=== PATIENT | female | born 1940 | race Hispanic/Latino ===

== ENCOUNTER 2018-01-31 05:24 | Emergency (ER) | payer MEDICARE ==
[2018-01-31 06:39] LABS: Basophils % (Auto) 0.6 % (0.0-1.8); Eosinophils % (Auto) 0.6 % (0.0-4.3); Hematocrit 37.5 % (30.3-42.9); Hemoglobin 12.5 gm/dl (10.1-14.3); Lymphocytes # (Auto) 0.4 K/mm3 (1.2-5.4); Lymphocytes % (Auto) 6.9 % (13.4-35.0); Mean Corpuscular HGB Conc 33 % (30-34); Mean Corpuscular Hemoglobin 30 pg (28-32); Mean Corpuscular Volume 90 fl (79-97); Monocytes # (Auto) 0.3 K/mm3 (0.0-0.8); Monocytes % (Auto) 5.5 % (0.0-7.3); Platelet Count 130 K/mm3 (140-440); Red Blood Count 4.18 M/mm3 (3.65-5.03); Red Cell Distribution Width 16.3 % (13.2-15.2)
[2018-01-31] MEDS ORDERED: ZOFRAN IV ONE (07:30)
[2018-01-31] MEDS ORDERED: SUBLIMAZE IV ONE (07:30)
[2018-01-31] MEDS ORDERED: FIORICET PO ONE (07:31)
--- NOTE | 2018-01-31 07:44 | Emergency Department Report ---
HPI - General Chief Complaint: Headache Time Seen by Provider: 01/31/18 07:17 - HPI HPI: Room 2 The patient is 77-year-old female presents with chief complaint of headache. Patient states she's had a frontal headache since yesterday. Patient denies preceding trauma. Patient denies fever. Patient missed nausea and vomiting. The patient states she had a history of migraines in the past but they resolved after menopause. Patient gives her pain score of 9/10 Location: Head Duration: Constant since yesterday Quality: Aching Severity: 9/10 Modifying factors: [see above] Context: [see above] Mode of transportation: [not driving] ED Past Medical Hx - Past Medical History Previous Medical History?: Yes Hx Hypertension: Yes (FOR 5 YRS, DR. BELLO- PCP, DR. 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 BREAST CYSTS IN THE 60'S) - Family History Family history: no significant - Social History Smoking Status: Never Smoker Substance Use Type: None (denies illicit drug use) - Medications Home Medications: Home Medications Medication Instructions Recorded Confirmed Last Taken Type Duloxetine HCl [Cymbalta] 30 mg PO BID 11/14/15 01/31/18 11/21/15 History Levothyroxine [Synthroid] 100 mcg PO QAM 11/14/15 01/31/18 11/22/15 03:00 History Lisinopril [Zestril TAB] 40 mg PO BID 11/14/15 01/31/18 11/22/15 03:00 History Ondansetron [Zofran TAB] 4 mg PO Q8HR PRN #14 tablet 11/22/15 01/31/18 Unknown Rx Butalb/Acetamin/Caff 50-325-40 2 tab PO Q8HR PRN #20 tablet 01/31/18 Unknown Rx [Fioricet] Carvedilol [Coreg] 3.125 mg PO BID 01/31/18 01/31/18 Unknown History Donepezil HCl 5 mg PO DAILY 01/31/18 01/31/18 Unknown History Furosemide [Lasix] 20 mg PO QDAY 01/31/18 01/31/18 Unknown History ISOSORBIDE MONOnitrate [Imdur ER] 60 mg PO QDAY 01/31/18 01/31/18 Unknown History Mirtazapine [Remeron] 30 mg PO QHS 01/31/18 01/31/18 Unknown History Niraparib Tosylate [Zejula] 100 mg PO DAILY 01/31/18 01/31/18 Unknown History Ondansetron [Zofran ODT TAB] 8 mg PO Q8HR #20 tab.rapdis 01/31/18 Unknown Rx Potassium Chloride [Klor-Con 10] 10 meq PO DAILY 01/31/18 01/31/18 Unknown History ED Review of Systems ROS: Stated complaint: GENERAL ILLNESS/WEAKNESS Other details as noted in HPI Constitutional: denies: fever Eyes: denies: eye pain ENT: denies: throat pain Cardiovascular: denies: chest pain Gastrointestinal: nausea, vomiting. denies: abdominal pain Genitourinary: denies: dysuria Musculoskeletal: denies: back pain Neurological: headache Physical Exam - Physical Exam Vital Signs: Vital Signs 01/31/18 01/31/18 05:51 06:20 Temperature 97.0 F L Pulse Rate 88 Respiratory 16 20 Rate Blood Pressure 189/75 O2 Sat by Pulse 96 97 Oximetry Vital Signs 01/31/18 01/31/18 01/31/18 05:35 05:46 05:51 Temperature 97.0 F L Pulse Rate 83 83 88 Respiratory 22 20 16 Rate Blood Pressure 152/128 189/75 Blood Pressure [Left] O2 Sat by Pulse 94 96 Oximetry 01/31/18 01/31/18 01/31/18 06:00 06:16 06:20 Temperature Pulse Rate 85 86 Respiratory 19 18 20 Rate Blood Pressure 206/87 189/75 Blood Pressure [Left] O2 Sat by Pulse 95 93 97 Oximetry 01/31/18 01/31/18 01/31/18 06:30 06:46 07:00 Temperature Pulse Rate 82 85 85 Respiratory 17 19 20 Rate Blood Pressure 191/99 191/99 204/78 Blood Pressure [Left] O2 Sat by Pulse 94 95 95 Oximetry 01/31/18 01/31/18 01/31/18 07:16 07:30 07:48 Temperature Pulse Rate 94 H 85 75 Respiratory 24 13 18 Rate Blood Pressure 191/99 191/99 Blood Pressure 198/78 [Left] O2 Sat by Pulse 98 97 100 Oximetry 01/31/18 01/31/18 01/31/18 07:54 08:00 08:16 Temperature Pulse Rate 86 89 85 Respiratory Rate Blood Pressure 198/78 198/78 210/78 Blood Pressure [Left] O2 Sat by Pulse 94 96 Oximetry 01/31/18 01/31/18 09:00 10:01 Temperature Pulse Rate 86 Respiratory Rate Blood Pressure 198/78 163/82 Blood Pressure [Left] O2 Sat by Pulse 97 98 Oximetry Physical Exam: GENERAL: The patient is well-developed well-nourished female lying on stretcher not appearing to be in acute distress. Lights are off in the room HEENT: Normocephalic. Atraumatic. Extraocular motions are intact. Patient has moist mucous membranes. NECK: Supple. No meningitic signs are noted. Trachea midline CHEST/LUNGS: Clear to auscultation. There is no respiratory distress noted. HEART/CARDIOVASCULAR: Regular. There is no tachycardia. There is no gallop rub or murmur. ABDOMEN: Abdomen is soft, nontender. Patient has normal bowel sounds. There is no abdominal distention. SKIN: There is no rash. There is no edema. There is no diaphoresis. NEURO: The patient is awake, alert, and oriented. The patient is cooperative. Cranial nerves II through XII grossly intact, no drift. The patient has residual decrease sensation to the right upper extremity from previous CVA. There is no change. The patient has normal speech MUSCULOSKELETAL: There is no evidence of acute injury. NIHSS= 0 LOC a. Alert= 0 Not alert but arousable to minor stimuli=1 Not alert requires repeated or strong stimuli to move= 2 Responds only reflex motor or unresponsive=3 b. asks month and age answers both correctly= 0 answers one correctly= 1 answers neither correctly= 2 Best Gaze normal= 0 abnormal in one or both but forced deviation or total paresis absent= 1 forced deviation or total gaze paresis= 2 Visual no visual loss= 0 partial hemianopia= 1 complete hemianopia= 2 bilateral hemianopia= 3 Facial Palsy normal= 0 minor paralysis= 1 partial paralysis= 2 complete paralysis= 3 Motor Arm no drift= 0 drift before 10 secs but doesnt hit bed= 1 some effort against gravity= 2 no effort against gravity= 3 no movement= 4 Motor leg no drift= 0 drift before 5 secs but doesnt hit bed= 1 drifts to bed before 5 secs= 2 no effort against gravity= 3 no movement= 4 Limb ataxia absent=0 present in one limb= 1 present in two limbs= 2 Sensory normal= 0 mild sensory loss= 1 severe (unaware of being touched)= 2 Best language mild/some loss of fluency= 1 severe= 2 mute= 3 Dysarthria normal= 0 slurs some words= 1 severe/unintelligible= 2 Extinction and Inattention no abnormality= 0 visual, tactile, auditory or personal inattention= 1 profound (doesnt recognize own hand or orients to only one side= 2 ED Course Vital Signs 01/31/18 01/31/18 05:51 06:20 Temperature 97.0 F L Pulse Rate 88 Respiratory 16 20 Rate Blood Pressure 189/75 O2 Sat by Pulse 96 97 Oximetry - Reevaluation(s) Reevaluation #1: 01/31/18 10:07 Patient states she feels much improved ED Medical Decision Making - Lab Data Result diagrams: 01/31/18 06:24 01/31/18 06:24 Laboratory Tests 01/31/18 01/31/18 06:24 06:24 WBC 5.7 RBC 4.18 Hgb 12.5 Hct 37.5 MCV 90 MCH 30 MCHC 33 RDW 16.3 H Plt Count 130 L Lymph % (Auto) 6.9 L [place] % (Auto) 5.5 Eos % (Auto) 0.6 Baso % (Auto) 0.6 Lymph # 0.4 L [place] # 0.3 Eos # 0.0 Baso # 0.0 Seg Neutrophils % 86.4 H Seg Neutrophils # 4.9 Sodium 141 Potassium 4.3 Chloride 97.8 L Carbon Dioxide 30 Anion Gap 18 BUN 40 H Creatinine 1.1 Estimated GFR 48 BUN/Creatinine Ratio 36 Glucose 134 H Calcium 9.7 Total Bilirubin 0.50 AST 31 ALT 18 Alkaline Phosphatase 139 H Total Protein 7.1 Albumin 4.0 Albumin/Globulin Ratio 1.3 Lipase 26 - Radiology Data CT head (read by radiologist)- Volume loss. No acute process identified - Differential Diagnosis headache, migraine, hypertensive urgency Critical care attestation.: If time is entered above; I have spent that time in minutes in the direct care of this critically ill patient, excluding procedure time. ED Disposition Clinical Impression: Headache, Hypertension Disposition: DC- TO HOME OR SELFCARE Is pt being admited?: No Does the pt Need Aspirin: No Condition: Stable Instructions: Hypertension (ED) Additional Instructions: Return to the emergency department immediately should you develop worsening symptoms, fever, inability to tolerate food or liquid or any other concerns. Prescriptions: Butalb/Acetamin/Caff 50-325-40 [Fioricet] 2 tab PO Q8HR PRN #20 tablet PRN Reason: Headache Ondansetron [Zofran ODT TAB] 8 mg PO Q8HR #20 tab.rapdis Referrals: DENEEN ZARATE MD [Staff Physician] - 2-3 Days (Dr Zarate is a neurologist. Please follow up with him for further evaluation) Time of Disposition: 10:31
[2018-01-31 07:58] LABS: Calcium 9.7 mg/dL (8.4-10.2)
--- NOTE | 2018-01-31 08:07 | Cat Scan Report ---
CT HEAD WITHOUT CONTRAST: HISTORY: Headache, nausea, vomiting. TECHNIQUE: Sequential 2.5mm CT images. COMPARISON: 06/23/11. FINDINGS: Cerebral Parenchyma: Mild diffuse volume loss appears age appropriate. A moderate to large size area of decreased attenuation has developed in the subcortical white matter of the left posterior frontal lobe. This area measures up to 5 cm in greatest diameter. This is new since the previous exam in 2010 but it has the appearance of a chronic ischemic insult. There is no obvious underlying mass, surrounding edema or sulcal effacement. The remaining brain parenchyma is within normal limits. Cerebellum: Within normal limits. Brainstem: Within normal limits. Ventricles: Normal. Sella: Normal. Extra-axial spaces: Normal. Basal Cisterns: Normal. Intracranial Hemorrhage: None. Midline Shift: None. Calvarium: Normal. Sinuses: Normal. Mastoid Air Cells: Normal. Visualized Orbits: Normal. IMPRESSION: Volume loss. Moderate sized chronic ischemic insult is identified in the posterior left frontal lobe which is new since the 2011 exam. No acute process is appreciated on noncontrast CT. If further evaluation is needed, MRI with contrast is recommended.
[2018-01-31] MEDS ORDERED: REGLAN IV ONE (08:18)
[2018-01-31] MEDS ORDERED: CATAPRES PO ONE (10:03)
[2018-01-31 10:08] VITALS: BP 163/82
[2018-01-31 10:14] LABS: Bilirubin,Urine NEG (Negative); Blood,Urine SM (Negative); Color,Urine Yellow (Yellow); Urobilinogen,Urine < 2.0 mg/dL (<2.0)
[2018-01-31 10:15] LABS: WBC,Urine > 182.0 /HPF (0.0-6.0)
== END 2018-01-31 11:38 | disposition home or self-care (01) ==
LOC: ED 05:24
DX: I10 Essential (primary) hypertension (principal)
CPT/HCPCS: 36415; 70450; 80053; 81001; 83690; 85025; 96374; 96375; 99284; J2405; J2765; J3010

== ENCOUNTER 2018-02-10 14:55 | Emergency (ER) | payer MEDICARE ==
[2018-02-10] MEDS ORDERED: NACL 0.9% 500 ML 500 ML IV ONE (15:40)
--- NOTE | 2018-02-10 15:41 | Emergency Department Report ---
ED General Adult HPI - General Chief complaint: Dizziness Stated complaint: DIZZY Time Seen by Provider: 02/10/18 15:24 Source: patient, EMS (ems notes not available at time of chart dictation), RN notes reviewed, old records reviewed Mode of arrival: Stretcher Limitations: Physical Limitation - History of Present Illness Initial comments: This is a 77-year-old female, history of frequent falls, disequilibrium, A. fib , not on anticoagulation, dementia. Patient presents to the ER for evaluation after fall. She reports chronic dizziness which she describes as a sensation of room spinning. She denies tinnitus and change in auditory acuity. Patient denies headache, neck pain, chest pain, abdominal pain, shortness of breath, urinary symptoms. Her dizziness/vertiginous symptoms do not have exacerbating or relieving factors. She is not having any pain at this time. Of note, patient recently admitted to the hospital for similar symptoms, had a CAT scan of the brain which was negative for acute findings, was seen and evaluated by cardiology, she is documented to not be on systemic long-term anticoagulation secondary to frequent falls and chronic disequilibrium. -: Gradual Severity scale (0 -10): 0 Consistency: intermittent Improves with: none Worsens with: none Associated Symptoms: denies: confusion, chest pain, cough, diaphoresis, fever/ chills, headaches, loss of appetite, malaise, nausea/vomiting, rash, seizure, shortness of breath, syncope, weakness - Related Data Home Medications Medication Instructions Recorded Confirmed Last Taken Duloxetine HCl [Cymbalta] 30 mg PO BID 11/14/15 02/10/18 11/21/15 Levothyroxine [Synthroid] 100 mcg PO QAM 11/14/15 02/10/18 11/22/15 03:00 Lisinopril [Zestril TAB] 40 mg PO BID 11/14/15 02/10/18 11/22/15 03:00 Carvedilol [Coreg] 3.125 mg PO BID 01/31/18 02/10/18 Unknown Donepezil HCl 5 mg PO DAILY 01/31/18 02/10/18 Unknown ISOSORBIDE MONOnitrate [Imdur ER] 60 mg PO QDAY 01/31/18 02/10/18 Unknown Mirtazapine [Remeron] 30 mg PO QHS 01/31/18 02/10/18 Unknown Niraparib Tosylate [Zejula] 100 mg PO DAILY 01/31/18 02/10/18 Unknown Previous Rx's Medication Instructions Recorded Last Taken Type Ondansetron [Zofran ODT TAB] 8 mg PO Q8HR #20 tab.rapdis 01/31/18 Unknown Rx Furosemide [Lasix TAB] 20 mg PO Q48H PRN #15 tablet 02/06/18 Unknown Rx Potassium Chloride [Klor-Con 10] 10 meq PO DAILY #30 02/06/18 Unknown Rx Meclizine [Antivert] 25 mg PO TID PRN #20 tablet 02/10/18 Unknown Rx Allergies Allergy/AdvReac Type Severity Reaction Status Date / Time amoxicillin [Amoxicillin] Allergy Rash Verified 11/22/15 06:47 Penicillins Allergy Rash Verified 11/22/15 06:47 Sulfa (Sulfonamide Allergy Rash Verified 11/22/15 06:35 Antibiotics) ED Review of Systems ROS: Stated complaint: DIZZY Other details as noted in HPI Constitutional: denies: fever, malaise Eyes: denies: vision change ENT: denies: ear pain, epistaxis, congestion Respiratory: denies: cough Cardiovascular: denies: chest pain, syncope Gastrointestinal: denies: abdominal pain Genitourinary: denies: dysuria Musculoskeletal: arthralgia Neurological: weakness ED Past Medical Hx - Past Medical History Hx Hypertension: Yes (FOR 5 YRS, DR. BELLO- PCP, DR. 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 BREAST CYSTS IN THE 60'S) Additional Surgical History: Hysterectomy - Social History Smoking Status: Never Smoker - Medications Home Medications: Home Medications Medication Instructions Recorded Confirmed Last Taken Type Duloxetine HCl [Cymbalta] 30 mg PO BID 11/14/15 02/10/18 11/21/15 History Levothyroxine [Synthroid] 100 mcg PO QAM 11/14/15 02/10/18 11/22/15 03:00 History Lisinopril [Zestril TAB] 40 mg PO BID 11/14/15 02/10/18 11/22/15 03:00 History Carvedilol [Coreg] 3.125 mg PO BID 01/31/18 02/10/18 Unknown History Donepezil HCl 5 mg PO DAILY 01/31/18 02/10/18 Unknown History ISOSORBIDE MONOnitrate [Imdur ER] 60 mg PO QDAY 01/31/18 02/10/18 Unknown History Mirtazapine [Remeron] 30 mg PO QHS 01/31/18 02/10/18 Unknown History Niraparib Tosylate [Zejula] 100 mg PO DAILY 01/31/18 02/10/18 Unknown History Ondansetron [Zofran ODT TAB] 8 mg PO Q8HR #20 tab.rapdis 01/31/18 02/10/18 Unknown Rx Furosemide [Lasix TAB] 20 mg PO Q48H PRN #15 tablet 02/06/18 02/10/18 Unknown Rx Potassium Chloride [Klor-Con 10] 10 meq PO DAILY #30 02/06/18 02/10/18 Unknown Rx Meclizine [Antivert] 25 mg PO TID PRN #20 tablet 02/10/18 Unknown Rx ED Physical Exam - General Limitations: Physical Limitation General appearance: alert, in no apparent distress - Head Head exam: Present: atraumatic, normocephalic - Eye Eye exam: Present: normal appearance, EOMI, other (physical acuity intact to finger counting, color perception bilaterally. Pupils are status post bilateral cataract surgery). Absent: nystagmus - ENT ENT exam: Present: normal exam, normal orophraynx, mucous membranes moist, TM's normal bilaterally, normal external ear exam, other (there is no mastoid tenderness) - Neck Neck exam: Present: normal inspection, full ROM - Respiratory Respiratory exam: Present: normal lung sounds bilaterally. Absent: respiratory distress - Cardiovascular Cardiovascular Exam: Present: irregular rhythm, normal heart sounds. Absent: bradycardia, tachycardia, systolic murmur, diastolic murmur, rubs, gallop - GI/Abdominal GI/Abdominal exam: Present: soft, normal bowel sounds. Absent: distended, tenderness, guarding, rebound, rigid, pulsatile mass - Extremities Exam Extremities exam: Present: normal inspection, full ROM, other (there is no palpable cord. There is a negative Homans sign. 2+ pulses noted in the upper, lower extremities. Chronic discoloration noted in the bilateral lower extremities. Left lower extremity range of motion limited secondary to prior stroke. Otherwise, full range of motion bilateral upper and right lower extremities.). Absent: pedal edema, calf tenderness - Back Exam Back exam: Present: normal inspection, full ROM. Absent: paraspinal tenderness , vertebral tenderness - Neurological Exam Neurological exam: Present: alert (there is no past pointing. Normal heel-to- hinton in the right lower extremity. Negative pronator drift.), oriented X3, CN II-XII intact, motor sensory deficit (4-5 strength left lower extremity. Decreased sensation to light touch left lower extremity.) - Psychiatric Psychiatric exam: Present: normal affect, normal mood - Skin Skin exam: Present: warm, dry, intact, normal color. Absent: rash ED Course Vital Signs 02/10/18 02/10/18 02/10/18 15:31 15:40 15:45 Temperature 97.6 F Pulse Rate 77 73 Respiratory 11 L 16 20 Rate Blood Pressure 138/63 Blood Pressure 138/63 [Left] O2 Sat by Pulse 100 Oximetry 02/10/18 02/10/18 02/10/18 16:00 16:17 18:30 Temperature Pulse Rate 84 70 Respiratory 24 18 13 Rate Blood Pressure 146/61 Blood Pressure 146/61 154/51 [Left] O2 Sat by Pulse 98 100 99 Oximetry ED Medical Decision Making - Lab Data Result diagrams: 02/10/18 15:57 02/10/18 15:57 Vital Signs 02/10/18 02/10/18 02/10/18 15:31 15:40 15:45 Temperature 97.6 F Pulse Rate 77 73 Respiratory 11 L 16 20 Rate Blood Pressure 138/63 Blood Pressure 138/63 [Left] O2 Sat by Pulse 100 Oximetry 02/10/18 02/10/18 02/10/18 16:00 16:17 18:30 Temperature Pulse Rate 84 70 Respiratory 24 18 13 Rate Blood Pressure 146/61 Blood Pressure 146/61 154/51 [Left] O2 Sat by Pulse 98 100 99 Oximetry Lab Results 02/10/18 02/10/18 02/10/18 Range/Units 15:57 15:57 15:57 WBC 5.2 (4.5-11.0) K/mm3 RBC 3.75 (3.65-5.03) M/mm3 Hgb 11.1 (10.1-14.3) gm/dl Hct 33.3 (30.3-42.9) % MCV 89 (79-97) fl MCH 30 (28-32) pg MCHC 33 (30-34) % RDW 17.3 H (13.2-15.2) % Plt Count 180 (140-440) K/mm3 Lymph % (Auto) 9.0 L (13.4-35.0) % Aurora % (Auto) 8.2 H (0.0-7.3) % Eos % (Auto) 2.7 (0.0-4.3) % Baso % (Auto) 1.0 (0.0-1.8) % Lymph # 0.5 L (1.2-5.4) K/mm3 Aurora # 0.4 (0.0-0.8) K/mm3 Eos # 0.1 (0.0-0.4) K/mm3 Baso # 0.1 (0.0-0.1) K/mm3 Seg Neutrophils % 79.1 H (40.0-70.0) % Seg Neutrophils # 4.1 (1.8-7.7) K/mm3 PT 12.9 (12.2-14.9) Sec. INR 0.93 (0.87-1.13) APTT 28.8 (24.2-36.6) Sec. Thrombin Time 16.4 (15.1-19.6) Sec. Sodium (137-145) mmol/L Potassium (3.6-5.0) mmol/L Chloride (98-107) mmol/L Carbon Dioxide (22-30) mmol/L Anion Gap mmol/L BUN (7-17) mg/dL Creatinine (0.7-1.2) mg/dL Estimated GFR ml/min BUN/Creatinine Ratio % Glucose (65-100) mg/dL Calcium (8.4-10.2) mg/dL Total Bilirubin (0.1-1.2) mg/dL AST (5-40) units/L ALT (7-56) units/L Alkaline Phosphatase (35-129) units/L Total Creatine Kinase (30-135) units/L CK-MB (CK-2) (0.0-4.0) ng/mL CK-MB (CK-2) Rel Index (0-4) Troponin T (0.00-0.029) ng/mL Total Protein (6.3-8.2) g/dL Albumin (3.9-5) g/dL Albumin/Globulin Ratio % Urine Color Yellow (Yellow) Urine Turbidity Clear (Clear) Urine pH 6.0 (5.0-7.0) Ur Specific [place] 1.015 (1.003-1.030) Urine Protein <15 mg/dl (Negative) mg/dL Urine Glucose (UA) Neg (Negative) mg/dL Urine Ketones Neg (Negative) mg/dL Urine Blood Neg (Negative) Urine Nitrite Neg (Negative) Urine Bilirubin Neg (Negative) Urine Urobilinogen < 2.0 (<2.0) mg/dL Ur Leukocyte Esterase Neg (Negative) Urine WBC (Auto) 1.0 (0.0-6.0) /HPF Urine RBC (Auto) 3.0 (0.0-6.0) /HPF U Epithel Cells (Auto) < 1.0 (0-13.0) /HPF 02/10/18 Range/Units 15:57 WBC (4.5-11.0) K/mm3 RBC (3.65-5.03) M/mm3 Hgb (10.1-14.3) gm/dl Hct (30.3-42.9) % MCV (79-97) fl MCH (28-32) pg MCHC (30-34) % RDW (13.2-15.2) % Plt Count (140-440) K/mm3 Lymph % (Auto) (13.4-35.0) % Aurora % (Auto) (0.0-7.3) % Eos % (Auto) (0.0-4.3) % Baso % (Auto) (0.0-1.8) % Lymph # (1.2-5.4) K/mm3 Aurora # (0.0-0.8) K/mm3 Eos # (0.0-0.4) K/mm3 Baso # (0.0-0.1) K/mm3 Seg Neutrophils % (40.0-70.0) % Seg Neutrophils # (1.8-7.7) K/mm3 PT (12.2-14.9) Sec. INR (0.87-1.13) APTT (24.2-36.6) Sec. Thrombin Time (15.1-19.6) Sec. Sodium 138 (137-145) mmol/L Potassium 4.8 (3.6-5.0) mmol/L Chloride 97.3 L (98-107) mmol/L Carbon Dioxide 30 (22-30) mmol/L Anion Gap 16 mmol/L BUN 44 H (7-17) mg/dL Creatinine 1.0 (0.7-1.2) mg/dL Estimated GFR 54 ml/min BUN/Creatinine Ratio 44 % Glucose 119 H (65-100) mg/dL Calcium 9.6 (8.4-10.2) mg/dL Total Bilirubin 0.40 (0.1-1.2) mg/dL AST 36 (5-40) units/L ALT 28 (7-56) units/L Alkaline Phosphatase 158 H (35-129) units/L Total Creatine Kinase 57 (30-135) units/L CK-MB (CK-2) 4.5 H (0.0-4.0) ng/mL CK-MB (CK-2) Rel Index 7.8 H (0-4) Troponin T 0.017 (0.00-0.029) ng/mL Total Protein 7.4 (6.3-8.2) g/dL Albumin 3.9 (3.9-5) g/dL Albumin/Globulin Ratio 1.1 % Urine Color (Yellow) Urine Turbidity (Clear) Urine pH (5.0-7.0) Ur Specific [place] (1.003-1.030) Urine Protein (Negative) mg/dL Urine Glucose (UA) (Negative) mg/dL Urine Ketones (Negative) mg/dL Urine Blood (Negative) Urine Nitrite (Negative) Urine Bilirubin (Negative) Urine Urobilinogen (<2.0) mg/dL Ur Leukocyte Esterase (Negative) Urine WBC (Auto) (0.0-6.0) /HPF Urine RBC (Auto) (0.0-6.0) /HPF U Epithel Cells (Auto) (0-13.0) /HPF - EKG Data -: EKG Interpreted by Me - EKG Data 02/10/18 19:08 Atrial fibrillation, left axis deviation, ventricular paced rhythm, good capture , poor R-wave progression, abnormal EKG, not having chest pain, nonspecific, not a stemi - Radiology Data Radiology results: report reviewed, image reviewed Print Report Referring Physician: AUGUSTIN DUNBAR Patient Name: HUGO GOULD Date of : 1940 Sex: Female Report Date: 2018-02-10 Report Status: Finalized Findings [facility] [address] [place] [address] Cat Scan Report Signed Patient: HUGO GOULD MR#: [id number] : 1940 Acct:[id number] Age/Sex: 77 / F ADM Date: 02/10/18 Loc: ED Attending Dr: Ordering Physician: AUGUSTIN DUNBAR MD Date of Service: 02/10/18 Procedure(s): CT head/brain wo con Accession Number(s): [id number] cc: AUGUSTIN DUNBAR MD FINAL REPORT EXAM: CT HEAD/BRAIN WO CON HISTORY: Stroke symptoms TECHNIQUE: Standard unenhanced CT of the head at 5.0 millimeter axial increments. PRIORS: None. FINDINGS: The ventricular system is normal in size and configuration. There is a hypodense area in the left superior parietal lobe which likely represents a remote infarct. Portions of this area are low in density equal to CSF. There is mild bilateral frontal lobe atrophy. There is no evidence for mass lesion, mass effect, midline shift, acute intracranial hemorrhage, or acute ischemia/ infarction. No evidence for acute skull fracture is seen. No abnormality in the overlying scalp soft tissues is seen. Visualized paranasal sinuses are clear. 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 No acute intracranial process noted. Transcribed By: [facility] Dictated By: FERNIE BARKER MD Electronically Authenticated By: FERNIE BARKER MD Signed Date/Time: 02/10/18 9784 - Medical Decision Making Differential diagnosis, including not limited to: Mechanical fall, intracranial injury, chronic disequilibrium, intracranial hemorrhage Assessment and plan: 77-year-old female with previously documented chronic disequilibrium and frequent falls, who presents with recurrent fall preceded by her chronic disequilibrium and vertigo. She is afebrile with reassuring vital signs, laboratory studies were unremarkable, EKG unremarkable, shows a paced rhythm which is expected and appropriate, urinalysis unremarkable, and noncontrast CT scan of the brain demonstrated no significant findings. 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 No acute intracranial process noted. Patient has been observed in the ER for hours without clinical decompensation, a case management, sr. social media & mobile manager in physical therapy consult has been placed to facilitate outpatient home therapy for physical therapy and possible vestibular therapy. Based on the objective data at this time, the patient does not merit require hospitalization, she's had multiple evaluations previously within the past 2 months for this problem. Critical care attestation.: If time is entered above; I have spent that time in minutes in the direct care of this critically ill patient, excluding procedure time. ED Disposition Clinical Impression: History of fall Disposition: DC-01 TO HOME OR SELFCARE Is pt being admited?: No Does the pt Need Aspirin: No Condition: Stable Instructions: Vertigo (ED) Additional Instructions: Continue home medications, with exception of the fiorecet, which should be discontinued. Please follow up with any of the listed neurology specialist ( Monalisa Donald, Raissa) within the next 2 weeks for the chronic vertigo. Alternatively, follow-up with the primary care doctor, such as Dr. Gutierrez, within the recommended timeframe. Return to the ER right away with fevers, chills, lethargy, irritability, projectile vomiting, change in mental status, confusion, inability to tolerate liquid feeds. Prescriptions: Meclizine [Antivert] 25 mg PO TID PRN #20 tablet PRN Reason: Vertigo Referrals: PRIMARY MD KEISHA [Primary Care Provider] - 3-5 Days DENEEN LEZAMA MD [Staff Physician] - 3-5 Days MADELINE GUIDRY MD [Staff Physician] - 3-5 Days GRAY BLANCO MD [Referring] - 3-5 Days GUILLERMINA GUTIERREZ MD [Staff Physician] - 3-5 Days
[2018-02-10 16:27] LABS: Bilirubin,Urine NEG (Negative); Blood,Urine NEG (Negative); Color,Urine Yellow (Yellow); Protein,Urine <15 mg/dL mg/dL (Negative); Urobilinogen,Urine < 2.0 mg/dL (<2.0)
[2018-02-10 16:32] LABS: INR 0.93 (0.87-1.13); Partial Thromboplastin Time 28.8 Sec. (24.2-36.6)
[2018-02-10 16:33] LABS: Thrombin Time 16.4 Sec. (15.1-19.6)
[2018-02-10 16:40] LABS: Basophils # (Auto) 0.1 K/mm3 (0.0-0.1); Eosinophils # (Auto) 0.1 K/mm3 (0.0-0.4); Eosinophils % (Auto) 2.7 % (0.0-4.3); Hematocrit 33.3 % (30.3-42.9); Hemoglobin 11.1 gm/dl (10.1-14.3); Lymphocytes # (Auto) 0.5 K/mm3 (1.2-5.4); Mean Corpuscular HGB Conc 33 % (30-34); Mean Corpuscular Hemoglobin 30 pg (28-32); Mean Corpuscular Volume 89 fl (79-97); Monocytes # (Auto) 0.4 K/mm3 (0.0-0.8); Monocytes % (Auto) 8.2 % (0.0-7.3); Platelet Count 180 K/mm3 (140-440); Red Blood Count 3.75 M/mm3 (3.65-5.03); Red Cell Distribution Width 17.3 % (13.2-15.2)
[2018-02-10 16:49] LABS: Creatine Kinase MB 4.5 ng/mL (0.0-4.0)
[2018-02-10 16:50] LABS: Albumin 3.9 g/dL (3.9-5); Calcium 9.6 mg/dL (8.4-10.2)
--- NOTE | 2018-02-10 17:46 | Cat Scan Report ---
FINAL REPORT EXAM: CT HEAD/BRAIN WO CON HISTORY: Stroke symptoms TECHNIQUE: Standard unenhanced CT of the head at 5.0 millimeter axial increments. PRIORS: None. FINDINGS: The ventricular system is normal in size and configuration. There is a hypodense area in the left superior parietal lobe which likely represents a remote infarct. Portions of this area are low in density equal to CSF. There is mild bilateral frontal lobe atrophy. There is no evidence for mass lesion, mass effect, midline shift, acute intracranial hemorrhage, or acute ischemia/ infarction. No evidence for acute skull fracture is seen. No abnormality in the overlying scalp soft tissues is seen. Visualized paranasal sinuses are clear. 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 No acute intracranial process noted.
[2018-02-10 18:53] VITALS: BP 154/51
== END 2018-02-10 19:00 | disposition home or self-care (01) ==
LOC: ED 14:55
DX: R42 Dizziness and giddiness (principal); I10 Essential (primary) hypertension; M19.90 Unspecified osteoarthritis, unspecified site; G43.909 Migraine, unspecified, not intractable, without status migrainosus; Z86.73 Personal history of transient ischemic attack (TIA), and cerebral infarction without residual deficits; Z95.0 Presence of cardiac pacemaker; Z90.710 Acquired absence of both cervix and uterus; Z88.1 Allergy status to other antibiotic agents; Z88.0 Allergy status to penicillin; Z88.2 Allergy status to sulfonamides
CPT/HCPCS: 36415; 70450; 80053; 81001; 82550; 82553; 84484; 85025; 85610; 85670; 85730; 93005; 93010; 99285; J7040

== ENCOUNTER 2018-02-12 10:31 | Emergency (ER) | payer MEDICARE ==
[2018-02-12 10:44] VITALS: BP 114/63
--- NOTE | 2018-02-12 12:08 | Emergency Department Report ---
ED Fall HPI - General Chief Complaint: Fall Stated Complaint: HIP PAIN Time Seen by Provider: 02/12/18 11:35 Source: patient, EMS Mode of arrival: Wheelchair - History of Present Illness Initial Comments: 77-year-old female seen 2 days ago for dizzy spells on a fall, has a diagnosis of vertigo which apparently has been worked up she is on meclizine, she says is nothing acute. Chronic dizzy spells, she says she was up in the middle night. for a snack was not using her walker as she knows she is supposed to do if she had just receached for a cane she says her eyes will not adjust the light and she bumped into a chair and fell, she is having similar symptoms when she was seen 2 days ago with low back pain and pelvic and hip pain, she says she did not mention that the other day, she is a working on home health aide to help her at home she is supposed to be using a walker but was using a cane, she is here for evaluation of chronic disequilibrium spells that are apparently being called vertigo which she is on meclizine 4 if, , she denies any new focal problems with that, she is here essentially for evaluation of persistent low back pain hip and pelvic pain that she has had ever since she was seen 2 days ago for the fall with chronic disequilibrium MD Complaint: fall -: Gradual, days(s) Fall From: standing When Fall Occurred: # days [employer] (3) Place Fall Occurred: home Loss of Consciousness: none Prolonged Down Time?: no Symptoms Prior to Fall: none, dizziness Location: back, pelvis, buttocks Severity: mild, moderate Severity scale (0 -10): 4 Quality: sharp Context: tripped/slipped, history of frequent falls Associated Symptoms: denies, lightheaded, vertigo. denies: headache, neck pain , numbness, weakness, chest paint, shortness of breath, abdominal pain, hematuria, unable to walk, confusion - Related Data Home Medications Medication Instructions Recorded Confirmed Last Taken Duloxetine HCl [Cymbalta] 30 mg PO BID 11/14/15 02/10/18 11/21/15 Levothyroxine [Synthroid] 100 mcg PO QAM 11/14/15 02/10/18 11/22/15 03:00 Lisinopril [Zestril TAB] 40 mg PO BID 11/14/15 02/10/18 11/22/15 03:00 Carvedilol [Coreg] 3.125 mg PO BID 01/31/18 02/10/18 Unknown Donepezil HCl 5 mg PO DAILY 01/31/18 02/10/18 Unknown ISOSORBIDE MONOnitrate [Imdur ER] 60 mg PO QDAY 01/31/18 02/10/18 Unknown Mirtazapine [Remeron] 30 mg PO QHS 01/31/18 02/10/18 Unknown Niraparib Tosylate [Zejula] 100 mg PO DAILY 01/31/18 02/10/18 Unknown Previous Rx's Medication Instructions Recorded Last Taken Type Ondansetron [Zofran ODT TAB] 8 mg PO Q8HR #20 tab.rapdis 01/31/18 Unknown Rx Furosemide [Lasix TAB] 20 mg PO Q48H PRN #15 tablet 02/06/18 Unknown Rx Potassium Chloride [Klor-Con 10] 10 meq PO DAILY #30 02/06/18 Unknown Rx Meclizine [Antivert] 25 mg PO TID PRN #20 tablet 02/10/18 Unknown Rx Acetaminophen [Tylenol Extra 500 mg PO QID PRN #15 tablet 02/12/18 Unknown Rx Strength] Allergies Allergy/AdvReac Type Severity Reaction Status Date / Time amoxicillin [Amoxicillin] Allergy Rash Verified 11/22/15 06:47 Penicillins Allergy Rash Verified 11/22/15 06:47 Sulfa (Sulfonamide Allergy Rash Verified 11/22/15 06:35 Antibiotics) ED Review of Systems ROS: Stated complaint: HIP PAIN Other details as noted in HPI Comment: All other systems reviewed and negative Constitutional: denies: diaphoresis, fever Eyes: denies: eye discharge, vision change ENT: denies: dental pain, hearing loss, epistaxis Respiratory: denies: shortness of breath, SOB with exertion, SOB at rest, stridor Cardiovascular: denies: chest pain, palpitations, dyspnea on exertion, orthopnea , edema, syncope Gastrointestinal: denies: abdominal pain, nausea, vomiting Genitourinary: dysuria. denies: urgency, frequency, hematuria, discharge, abnormal menses, dyspareunia Musculoskeletal: joint swelling, arthralgia, myalgia Neurological: denies: headache, weakness, numbness, paresthesias, confusion Hematological/Lymphatic: denies: easy bleeding, easy bruising, swollen glands ED Past Medical Hx - Past Medical History Previous Medical History?: Yes Hx Hypertension: Yes (FOR 5 YRS, DR. BELLO- PCP, DR. SHANKS- BROTH SETTER) Hx CVA: Yes (2016 Left lower leg/foot weakness) Hx Renal Disease: No Hx Arthritis: Yes (IN HANDS) Hx Headaches / Migraines: Yes (MIGRAINES) Hx Seizures: No Hx Asthma: No Hx HIV: No - Surgical History Past Surgical History?: Yes Hx Pacemaker: Yes (PLACED IN 2009) Hx Breast Surgery: Yes (EXCISION OF ANNA. BREAST CYSTS IN THE 60'S) Additional Surgical History: Hysterectomy - Social History Smoking Status: Never Smoker Substance Use Type: None - Medications Home Medications: Home Medications Medication Instructions Recorded Confirmed Last Taken Type Duloxetine HCl [Cymbalta] 30 mg PO BID 11/14/15 02/10/18 11/21/15 History Levothyroxine [Synthroid] 100 mcg PO QAM 11/14/15 02/10/18 11/22/15 03:00 History Lisinopril [Zestril TAB] 40 mg PO BID 11/14/15 02/10/18 11/22/15 03:00 History Carvedilol [Coreg] 3.125 mg PO BID 01/31/18 02/10/18 Unknown History Donepezil HCl 5 mg PO DAILY 01/31/18 02/10/18 Unknown History ISOSORBIDE MONOnitrate [Imdur ER] 60 mg PO QDAY 01/31/18 02/10/18 Unknown History Mirtazapine [Remeron] 30 mg PO QHS 01/31/18 02/10/18 Unknown History Niraparib Tosylate [Zejula] 100 mg PO DAILY 01/31/18 02/10/18 Unknown History Ondansetron [Zofran ODT TAB] 8 mg PO Q8HR #20 tab.rapdis 01/31/18 02/10/18 Unknown Rx Furosemide [Lasix TAB] 20 mg PO Q48H PRN #15 tablet 02/06/18 02/10/18 Unknown Rx Potassium Chloride [Klor-Con 10] 10 meq PO DAILY #30 02/06/18 02/10/18 Unknown Rx Meclizine [Antivert] 25 mg PO TID PRN #20 tablet 02/10/18 Unknown Rx Acetaminophen [Tylenol Extra 500 mg PO QID PRN #15 tablet 02/12/18 Unknown Rx Strength] ED Physical Exam - General Limitations: No Limitations General appearance: alert - Head Head exam: Present: atraumatic, normocephalic - Eye Eye exam: Present: PERRL, EOMI - ENT ENT exam: Present: normal exam, normal orophraynx - Neck Neck exam: Present: normal inspection. Absent: tenderness, meningismus - Respiratory Respiratory exam: Present: normal lung sounds bilaterally. Absent: respiratory distress, wheezes, rales, chest wall tenderness, accessory muscle use, decreased breath sounds, prolonged expiratory - Cardiovascular Cardiovascular Exam: Present: regular rate, normal rhythm - GI/Abdominal GI/Abdominal exam: Present: soft. Absent: distended, tenderness, guarding, rebound, rigid, mass, pulsatile mass - Extremities Exam Extremities exam: Present: normal inspection, normal capillary refill. Absent: joint swelling, calf tenderness - Back Exam Back exam: Present: muscle spasm, paraspinal tenderness. Absent: vertebral tenderness, rash noted - Neurological Exam Neurological exam: Present: alert, oriented X3, CN II-XII intact, other (no sacral anesthesia normal rectal tone). Absent: motor sensory deficit ED Course Vital Signs 02/12/18 10:40 Temperature 98.2 F Pulse Rate 92 H Respiratory 18 Rate Blood Pressure 114/63 O2 Sat by Pulse 98 Oximetry ED Medical Decision Making - Radiology Data Radiology results: report reviewed - Medical Decision Making History of some lumbar canal narrowing was some degenerative disc disease, no evidence of spinal cord compressive syndrome this time she is still from his follow-up consistent with bruise the previous physician on 2 days ago did address of frequent falls he set her up to arrange home health care she is in the process of arranging this she did fall recently because she was using her cane and not her walker I did tell her that she is going to need theuse walker and stated she did verbalize understanding. She does have a aluminizer at home now currently and they're in the middle of getting home health services arranged. Therefore I see no reason to admit her at this point time, she has no syncope no chest pain UA was negative EKG was unchanged from previous the CT was otherwise unremarkable no evidence of spinal cord compressive syndrome at this time that would require further emergent management she is first toe for outpatient follow-up she is not iNterested nh placement at this time Critical care attestation.: If time is entered above; I have spent that time in minutes in the direct care of this critically ill patient, excluding procedure time. ED Disposition Clinical Impression: Frequent falls, Superficial bruising of hip, Back strain Disposition: TO HOME OR SELFCARE Is pt being admited?: No Condition: Stable Instructions: Muscle Strain (ED) Additional Instructions: Recurrent or alarming symptoms or call 911 you need to see her neurosurgeon and your regular doctor or the doctor listed Prescriptions: Acetaminophen [Tylenol Extra Strength] 500 mg PO QID PRN #15 tablet PRN Reason: Pain, Moderate (4-6) Referrals: PRIMARY CARE, [Primary Care Provider] - 3-5 Days Time of Disposition: 14:49
[2018-02-12 13:24] LABS: Bilirubin,Urine NEG (Negative); Blood,Urine NEG (Negative); Color,Urine Yellow (Yellow); Protein,Urine <15 mg/dL mg/dL (Negative); Urobilinogen,Urine < 2.0 mg/dL (<2.0)
--- NOTE | 2018-02-12 13:56 | Cat Scan Report ---
FINAL REPORT EXAM: CT PELVIS WO CON HISTORY: pain/fall TECHNIQUE: CT of the pelvis without IV contrast. Coronal and sagittal reconstructed imaging provided. PRIORS: None currently available. FINDINGS: Degenerative changes are present within the spine. Dural ectasia noted. SI joints are unremarkable. No sacral fractures. No pelvic fractures. Hips are unremarkable. There is no acute dislocation. There is no cortical destruction to suggest osteomyelitis. There are no suspicious osseous lesions. There are no radiopaque foreign objects. Moderate stool in the colon. Bowel loops are otherwise unremarkable. No obstructive pattern. Images of the bladder are unremarkable. No pelvic mass or adenopathy. Uterus is not visualized. Suspect prior hysterectomy. IMPRESSION: No acute osseous findings. Possible constipation.
--- NOTE | 2018-02-12 14:00 | Cat Scan Report ---
FINAL REPORT EXAM: CT LUMBAR SPINE WO CON HISTORY: pain/fall TECHNIQUE: CT of the Lumbar Spine without IV contrast. Coronal and sagittal reformatted images were provided. PRIORS: None currently available. FINDINGS: There is no fracture. Dextroscoliosis. T12-L1: Symmetrical disc osteophyte complex. Indentation of the thecal sac without significant canal or foraminal narrowing. L1-L2: Right asymmetrical bulge. Mild spinal canal narrowing. Mild right foraminal narrowing. Left foramina is intact. L2-L3: Symmetrical bulge. Bilateral ligamentum flavum hypertrophy. Mild spinal canal narrowing. Bilateral foramina are intact. L3-L4: Grade 1 posterior subluxation. Left asymmetrical disc osteophyte complex. Bilateral ligamentum flavum hypertrophy. Pnmt-sv-rpoofwff left spinal canal narrowing. Vofz-xl-gvqcwdsp spinal canal narrowing. Mild right foraminal narrowing. L4-L5: Grade 1 posterior subluxation. Left asymmetrical bulge. Bilateral ligamentum flavum hypertrophy. Laoi-ak-ohlpfoin right foraminal narrowing. Mild left foraminal narrowing. Comz-mx-jocnfbam spinal canal narrowing. L5-S1: Left asymmetrical disc osteophyte complex. Pbeh-ca-zgcbnfiz left foraminal narrowing. Right foramina is intact. No significant canal narrowing. Prevertebral soft tissue structures are unremarkable. Aoul-lh-euyfwjdu aortic atherosclerotic disease. No aneurysm. Possible left adrenal nodule measures 1.1 cm. Attenuation is indeterminate. Right adrenal glands unremarkable. Possible punctate 1-2 mm stones in the left kidney. IMPRESSION: Dextroscoliosis. Multilevel degenerative discs. No acute fracture. Indeterminate left adrenal nodule.
== END 2018-02-12 15:15 | disposition home or self-care (01) ==
LOC: ED 10:31
DX: S39.012A Strain of muscle, fascia and tendon of lower back, initial encounter (principal); S70.00XA Contusion of unspecified hip, initial encounter; I10 Essential (primary) hypertension; M19.90 Unspecified osteoarthritis, unspecified site; G43.909 Migraine, unspecified, not intractable, without status migrainosus; Z95.0 Presence of cardiac pacemaker; Z90.710 Acquired absence of both cervix and uterus; Z86.73 Personal history of transient ischemic attack (TIA), and cerebral infarction without residual deficits; Z88.1 Allergy status to other antibiotic agents; Z88.0 Allergy status to penicillin; Z88.2 Allergy status to sulfonamides; W19.XXXA Unspecified fall, initial encounter; Y93.89 Activity, other specified; Y99.8 Other external cause status; Y92.098 Other place in other non-institutional residence as the place of occurrence of the external cause
CPT/HCPCS: 72131; 72192; 81001

== ENCOUNTER 2018-10-02 06:12 | Emergency (ER) | payer MEDICARE ==
--- NOTE | 2018-10-02 06:48 | Emergency Department Report ---
ED Fall HPI - General Chief Complaint: Fall Stated Complaint: L RIB PAIN Time Seen by Provider: 10/02/18 06:29 Source: patient, EMS Mode of arrival: Stretcher - History of Present Illness Initial Comments: Patient is a 78 years old female with history of hypertension and CVA. Patient caught to the emergency room via EMS for evaluation after a fall that happened yesterday afternoon. Patient stated that she missed the toilet and fell on the bathtub and hurt her left side. Patient denied any loss of consciousness, head injury, shortness of breath, difficulty walking or difficulty controlling her bowel or bladder. Patient also denied any neck injury. Patient is complaining of mild lower left chest pain. MD Complaint: fall -: Last night Fall From: standing Fall Witnessed: no Place Fall Occurred: home Loss of Consciousness: none Prolonged Down Time?: no Symptoms Prior to Fall: none Location: chest Severity: mild Severity scale (0 -10): 2 Quality: sharp Context: other (missed the toilet and hit the bathtub) Associated Symptoms: denies - Related Data Home Medications Medication Instructions Recorded Confirmed Last Taken Duloxetine HCl [Cymbalta] 30 mg PO BID 11/14/15 02/10/18 11/21/15 Levothyroxine [Synthroid] 100 mcg PO QAM 11/14/15 02/10/18 11/22/15 03:00 Lisinopril [Zestril TAB] 40 mg PO BID 11/14/15 02/10/18 11/22/15 03:00 Carvedilol [Coreg] 3.125 mg PO BID 01/31/18 02/10/18 Unknown Donepezil HCl 5 mg PO DAILY 01/31/18 02/10/18 Unknown ISOSORBIDE MONOnitrate [Imdur ER] 60 mg PO QDAY 01/31/18 02/10/18 Unknown Mirtazapine [Remeron] 30 mg PO QHS 01/31/18 02/10/18 Unknown Niraparib Tosylate [Zejula] 100 mg PO DAILY 01/31/18 02/10/18 Unknown Previous Rx's Medication Instructions Recorded Last Taken Type Ondansetron [Zofran ODT TAB] 8 mg PO Q8HR #20 tab.rapdis 01/31/18 Unknown Rx Furosemide [Lasix TAB] 20 mg PO Q48H PRN #15 tablet 02/06/18 Unknown Rx Potassium Chloride [Klor-Con 10] 10 meq PO DAILY #30 02/06/18 Unknown Rx Meclizine [Antivert] 25 mg PO TID PRN #20 tablet 02/10/18 Unknown Rx Acetaminophen [Tylenol Extra 500 mg PO QID PRN #15 tablet 02/12/18 Unknown Rx Strength] Allergies Allergy/AdvReac Type Severity Reaction Status Date / Time amoxicillin [Amoxicillin] Allergy Rash Verified 11/22/15 06:47 Penicillins Allergy Rash Verified 11/22/15 06:47 Sulfa (Sulfonamide Allergy Rash Verified 11/22/15 06:35 Antibiotics) ED Review of Systems ROS: Stated complaint: L RIB PAIN Other details as noted in HPI Comment: All other systems reviewed and negative Constitutional: denies: chills, fever Eyes: denies: vision change ENT: denies: throat pain, hearing loss Respiratory: denies: cough, shortness of breath, SOB with exertion, SOB at rest, stridor Cardiovascular: chest pain (the site of injury). denies: palpitations, dyspnea on exertion, orthopnea Gastrointestinal: denies: abdominal pain, nausea, vomiting, diarrhea, const ipation, hematemesis, melena Musculoskeletal: denies: back pain, joint swelling, arthralgia Neurological: denies: headache, weakness, numbness, paresthesias, confusion ED Past Medical Hx - Past Medical History Previous Medical History?: Yes Hx Hypertension: Yes (FOR [address] YRS, DR. BELLO- PCP, DR. SHANKS- ECONOMIC HISTORIAN) Hx CVA: Yes (2016 Left lower leg/foot weakness) Hx Renal Disease: No Hx Arthritis: Yes (IN HANDS) Hx Headaches / Migraines: Yes (MIGRAINES) Hx Seizures: No Hx Asthma: No Hx HIV: No - Surgical History Hx Pacemaker: Yes (PLACED IN 2009) Hx Breast Surgery: Yes (EXCISION OF ANNA. BREAST CYSTS IN THE 60'S) Additional Surgical History: Hysterectomy - Social History Smoking Status: Never Smoker Substance Use Type: Prescribed - Medications Home Medications: Home Medications Medication Instructions Recorded Confirmed Last Taken Type Duloxetine HCl [Cymbalta] 30 mg PO BID 11/14/15 02/10/18 11/21/15 History Levothyroxine [Synthroid] 100 mcg PO QAM 11/14/15 02/10/1811/21/16 03:00 History Lisinopril [Zestril TAB] 40 mg PO BID 11/14/15 02/10/18 11/22/15 03:00 History Carvedilol [Coreg] 3.125 mg PO BID 01/31/18 02/10/18 Unknown History Donepezil HCl 5 mg PO DAILY 01/31/18 02/10/18 Unknown History ISOSORBIDE MONOnitrate [Imdur ER] 60 mg PO QDAY 01/31/18 02/10/18 Unknown History Mirtazapine [Remeron] 30 mg PO QHS 01/31/18 02/10/18 Unknown History Niraparib Tosylate [Zejula] 100 mg PO DAILY 01/31/18 02/10/18 Unknown History Ondansetron [Zofran ODT TAB] 8 mg PO Q8HR #20 tab.rapdis 01/31/18 02/10/18 Unknown Rx Furosemide [Lasix TAB] 20 mg PO Q48H PRN #15 tablet 02/06/18 02/10/18 Unknown Rx Potassium Chloride [Klor-Con 10] 10 meq PO DAILY #30 02/06/18 02/10/18 Unknown Rx Meclizine [Antivert] 25 mg PO TID PRN #20 tablet 02/10/18 Unknown Rx Acetaminophen [Tylenol Extra 500 mg PO QID PRN #15 tablet 02/12/18 Unknown Rx Strength] ED Physical Exam - General Limitations: No Limitations General appearance: alert, in no apparent distress - Head Head exam: Present: atraumatic, normocephalic, normal inspection - Eye Eye exam: Present: normal appearance, PERRL - ENT ENT exam: Present: normal exam, normal orophraynx, mucous membranes moist - Neck Neck exam: Present: normal inspection, full ROM. Absent: tenderness, meningismus, lymphadenopathy, thyromegaly - Respiratory Respiratory exam: Present: normal lung sounds bilaterally, chest wall tenderness (left lower chest tenderness) - Cardiovascular Cardiovascular Exam: Present: regular rate, normal rhythm, normal heart sounds - GI/Abdominal GI/Abdominal exam: Present: soft, normal bowel sounds. Absent: distended, tenderness, guarding, rebound, rigid - Extremities Exam Extremities exam: Present: normal inspection, full ROM, normal capillary refill. Absent: tenderness, pedal edema, joint swelling, calf tenderness - Back Exam Back exam: Present: normal inspection, full ROM. Absent: tenderness, CVA tenderness (R), CVA tenderness (L), paraspinal tenderness, vertebral tenderness - Neurological Exam Neurological exam: Present: alert, oriented X3, CN II-XII intact, normal gait - Skin Skin exam: Present: warm, intact, normal color ED Course Vital Signs 10/02/18 10/02/18 10/02/18 06:35 06:37 06:43 Temperature 98.0 F Pulse Rate 82 Respiratory 20 18 Rate Blood Pressure 149/56 156/82 O2 Sat by Pulse 99 Oximetry 10/02/18 06:45 Temperature Pulse Rate Respiratory Rate Blood Pressure 142/62 O2 Sat by Pulse Oximetry ED Medical Decision Making - Radiology Data Radiology results: report reviewed Referring Physician: MITCHELL CHAPMAN Patient Name: HUGO GOULD Date of : 1940 Sex: Female Report Date: 2018-10-02 Report Status: Finalized Findings [address] [address] XRay Report Signed Patient: HUGO GOULD MR#: [id number] : 1940 Acct:[id number] Age/Sex: 78 / F ADM Date: 10/02/18 Loc: ED Attending Dr: Ordering Physician: MITCHELL CHAPMAN Date of Service: 10/02/18 Procedure(s): XR ribs UNI w PA chest 3+V LT Accession Number(s): [id number] cc: MITCHELL CHAPMAN Fluoro Time In Minutes: FINAL REPORT PROCEDURE: XR RIBS UNI W PA CHEST 3+V LT TECHNIQUE: LEFT rib radiographs, 3 views of the ribs, including PA chest. HISTORY: fall, left chest pain COMPARISON: No prior studies are available for comparison. FINDINGS: Heart: Normal. Mediastinum/Vessels: There is a cardiac pacemaker the battery in the left chest wall. The patient has therapy port the reservoir in the right chest wall Lungs: No acute infiltrate or effusion. No pneumothorax. Mild COPD. Pleural space: Normal. Pneumothorax: None. Bony thorax/ribs: There is an impacted fracture involving the distal aspect of the left 7th and 9th ribs. IMPRESSION: There are impacted fractures involving the distal aspect of the left 7th and 9th ribs. The lungs are clear without infiltrate or pneumothorax. Underlying chronic obstructive changes are noted. Transcribed By: [facility] Dictated By: NORMAN BUCK MD Electronically Authenticated By: NORMAN BUCK MD Signed Date/Time: 10/02/18933 DD/ 2 TD/TT: 10/02/18932 - Medical Decision Making Patient is a 78 years old female with history of hypertension and CVA. Patient caught to the emergency room via EMS for evaluation after a fall that happened yesterday afternoon. Patient stated that she missed the toilet and fell on the bathtub and hurt her left side. Patient denied any loss of consciousness, head injury, shortness of breath, difficulty walking or difficulty controlling her bowel or bladder. Patient also denied any neck injury. Patient is complaining of mild lower left chest pain. Patient remained stable in the ER. Chest x-ray show a left 7 and minus a refracture. No evidence of pneumothorax or hemothorax. Patient had a left hip x-ray which is negative for acute finding. I discussed the with the patient the importance of taking deep breath, patient will be given a spirometry for lung expansion and to avoid pneumonia or atelectasis. Patient will be discharged home and to follow-up with her primary care physician in the next 2-3 days. Critical care attestation.: If time is entered above; I have spent that time in minutes in the direct care of this critically ill patient, excluding procedure time. ED Disposition Clinical Impression: Fall, Ribs, multiple fractures Disposition: - TO HOME OR SELFCARE Is pt being admited?: No Condition: Stable Instructions: Rib Fracture (ED), Fall Prevention for Older Adults (ED) Referrals: PRIMARY CARE, [Primary Care Provider] - 3-5 Days
--- NOTE | 2018-10-02 09:30 | XRay Report ---
FINAL REPORT PROCEDURE: XR HIP 2-3V LT TECHNIQUE: LEFT hip radiographs, 2 views each, including AP view of the pelvis. HISTORY: left hip pain COMPARISON: No prior studies are available for comparison. FINDINGS: Fracture (s) and/or Dislocation(s): None . Joint space(s): Normal. Soft tissues: Normal. Bone mineralization: Normal. Foreign bodies: More few vascular clips in the left groin region IMPRESSION: There is no evidence of an acute fracture or dislocation
--- NOTE | 2018-10-02 09:34 | XRay Report ---
FINAL REPORT PROCEDURE: XR RIBS UNI W PA CHEST 3+V LT TECHNIQUE: LEFT rib radiographs, 3 views of the ribs, including PA chest. HISTORY: fall, left chest pain COMPARISON: No prior studies are available for comparison. FINDINGS: Heart: Normal. Mediastinum/Vessels: There is a cardiac pacemaker the battery in the left chest wall. The patient has therapy port the reservoir in the right chest wall Lungs: No acute infiltrate or effusion. No pneumothorax. Mild COPD. Pleural space: Normal. Pneumothorax: None. Bony thorax/ribs: There is an impacted fracture involving the distal aspect of the left 7th and 9th r ibs. IMPRESSION: There are impacted fractures involving the distal aspect of the left 7th and 9th ribs. The lungs are clear without infiltrate or pneumothorax. Underlying chronic obstructive changes are noted.
[2018-10-02 11:45] VITALS: BP 165/72
== END 2018-10-02 11:00 | disposition home or self-care (01) ==
LOC: ED 06:12
DX: S22.42XA Multiple fractures of ribs, left side, initial encounter for closed fracture (principal); I10 Essential (primary) hypertension; G43.909 Migraine, unspecified, not intractable, without status migrainosus; Z90.710 Acquired absence of both cervix and uterus; Z95.0 Presence of cardiac pacemaker; Z88.0 Allergy status to penicillin; Z88.1 Allergy status to other antibiotic agents; Z88.2 Allergy status to sulfonamides; W18.12XA Fall from or off toilet with subsequent striking against object, initial encounter; Y93.89 Activity, other specified; Y92.091 Bathroom in other non-institutional residence as the place of occurrence of the external cause; Y99.8 Other external cause status
CPT/HCPCS: 93005; 93010; 99283

== ENCOUNTER 2019-02-17 09:55 | Outpatient (CLI) | payer MEDICARE ==
--- NOTE | 2019-02-17 13:58 | Cat Scan Report ---
CT ABDOMEN AND PELVIS WITH CONTRAST HISTORY: ELEVATED CA 125 LEVEL (R97.1) history of ovarian cancer. Patient complains of abdominal pain and kidney pain. COMPARISON: 12/25/2015 TECHNIQUE: Axial CT images were obtained through the abdomen and pelvis after 100 cc of Omnipaque 300 intravenously. Sagittal and coronal reformatted images. All CT scans at this location are performed using CT dose reduction for ALARA by means of automated exposure control. FINDINGS: CT ABDOMEN: Lung Bases: The lung bases are clear. No nodule or effusion. Mild cardiomegaly and 2-lead pacemaker d evice are noted. Liver: There are a few scattered hypodense masses along the anterior and lateral surface of the liver concerning for serosal metastases. The largest lesion measures 3.9 x 1.0 cm in axial plane. No intra parenchymal liver mass is identified. Biliary: No significant abnormality. Spleen: No significant abnormality. Unenlarged. Pancreas: No significant abnormality. Adrenals: No significant abnormality. Kidneys: There are a few scattered simple renal cysts in both kidneys. 2 mm calyceal stone is noted i n the mid left kidney. No hydronephrosis. Lymphatics: Mildly enlarged jhoana hepatis lymph nodes are suspected. Vasculature: Moderate diffuse aortic and iliac calcifications. No aneurysm Bowel/Peritoneum: No significant abnormality. No free air. No free fluid. Mesenteric metastases seen on the previous exam are not identified on today's exam. CT PELVIS: : Hysterectomy changes are suspected. No adnexal mass. Osseous Structures: Mild osteopenia and degenerative changes in the lumbar spine. No suspicious bony lesion is identified Additional Findings: Ascites has resolved since the previous exam. IMPRESSION: Serosal metastases to the liver are suspected as outlined above. Enlarged jhoana hepatis lymph nodes a re also identified. Mesenteric metastases/omental caking has essentially resolved since the previous exam. Scattered renal cysts. 2 mm left renal stone. Mild cardiomegaly. Signer Name: Sylvain Crisostomo Jr, MD Signed: 02/17/2019 1:54 PM Workstation Name: [id number]
== END 2019-02-17 09:56 | disposition home or self-care (01) ==
LOC: CT 09:55
PROVIDERS: ATTEND Internal Medicine Hematology & Oncology
DX: N28.1 Cyst of kidney, acquired (principal); R59.9 Enlarged lymph nodes, unspecified; M47.816 Spondylosis without myelopathy or radiculopathy, lumbar region; M85.88 Other specified disorders of bone density and structure, other site; I10 Essential (primary) hypertension; E03.9 Hypothyroidism, unspecified; Z90.710 Acquired absence of both cervix and uterus; Z90.89 Acquired absence of other organs
CPT/HCPCS: 36415; 74177; 82565; 84520; Q9967

== ENCOUNTER 2019-05-10 18:48 | Inpatient (IN) | payer MEDICARE ==
[2019-05-10 20:28] LABS: Basophils # (Auto) 0.1 K/mm3 (0.0-0.1); Basophils % (Auto) 0.3 % (0.0-1.8); Eosinophils # (Auto) 0.1 K/mm3 (0.0-0.4); Eosinophils % (Auto) 0.4 % (0.0-4.3); Hematocrit 36.1 % (30.3-42.9); Hemoglobin 12.2 gm/dl (10.1-14.3); Lymphocytes # (Auto) 0.8 K/mm3 (1.2-5.4); Lymphocytes % (Auto) 4.7 % (13.4-35.0); Mean Corpuscular HGB Conc 34 % (30-34); Mean Corpuscular Volume 106 fl (79-97); Monocytes # (Auto) 0.9 K/mm3 (0.0-0.8); Monocytes % (Auto) 5.3 % (0.0-7.3); Platelet Count 231 K/mm3 (140-440); Red Blood Count 3.42 M/mm3 (3.65-5.03); Red Cell Distribution Width 15.5 % (13.2-15.2)
[2019-05-10] MEDS ORDERED: SODIUM CHLORIDE 0.9% 1000 ML 1,000 ML IV ONE (20:33)
[2019-05-10 20:43] LABS: Albumin 4.6 g/dL (3.9-5); Calcium 9.8 mg/dL (8.4-10.2)
[2019-05-10 20:47] LABS: Partial Thromboplastin Time 29.7 Sec. (24.2-36.6)
[2019-05-10 20:55] LABS: Chol/HDL Ratio 4.78 %
--- NOTE | 2019-05-10 21:29 | XRay Report ---
CHEST 1 VIEW 2106 INDICATION / CLINICAL INFORMATION: Altered Mental Status. COMPARISON: 02/05/2018 FINDINGS: SUPPORT DEVICES: Stable HEART / MEDIASTINUM: Stable LUNGS / PLEURA: No significant pulmonary or pleural abnormality. No pneumothorax. ADDITIONAL FINDINGS: No significant additional findings. IMPRESSION: No significant changes Signer Name: Tyrone Muir MD Signed: 05/10/2019 9:25 PM Workstation Name: [id number]
--- NOTE | 2019-05-10 21:55 | Emergency Department Report ---
ED Altered Mental Status HPI - General Chief Complaint: Altered Mental Status Stated Complaint: AMS/HYPOGLYCEMIA Time Seen by Provider: 05/10/19 19:43 Source: patient, EMS Mode of arrival: Ambulatory Limitations: Altered Mental Status, Physical Limitation - History of Present Illness Initial Comments: This is a 78-year-old female that presents to the ED for altered mental status. Patient has been brought by EMS. Upon arrival patient has defecated on himself. As per EMS patient was in a basement for the past week. Patient does live with his sister she is currently present. Stiff stated that patient refuses going to hospital. Upon examination patient is altered. There is a police report ready with defects involved as well. MD Complaint: altered mental status -: week(s) (1) Consistency of Symptoms: constant Associated Symptoms: loss of appetite, weakness, difficulty walking, incontinence. denies: chest pain, cough, diaphoresis, fever/chills, headaches, malaise, nausea/vomiting, rash, seizure, shortness of breath, syncope, foul smelling urine, diarrhea - Related Data Home Medications Medication Instructions Recorded Confirmed Last Taken Duloxetine HCl [Cymbalta] 30 mg PO BID 11/14/15 02/10/18 11/21/15 Levothyroxine [Synthroid] 100 mcg PO QAM 11/14/15 02/10/18 11/22/15 03:00 Lisinopril [Zestril TAB] 40 mg PO BID 11/14/15 02/10/18 11/22/15 03:00 Carvedilol [Coreg] 3.125 mg PO BID 01/31/18 02/10/18 Unknown Donepezil HCl 5 mg PO DAILY 01/31/18 02/10/18 Unknown ISOSORBIDE MONOnitrate [Imdur ER] 60 mg PO QDAY 01/31/18 02/10/18 Unknown Mirtazapine [Remeron 30mg TAB] 30 mg PO QHS 01/31/18 02/10/18 Unknown Niraparib Tosylate [Zejula] 100 mg PO DAILY 01/31/18 02/10/18 Unknown Previous Rx's Medication Instructions Recorded Last Taken Type Ondansetron [Zofran ODT TAB] 8 mg PO Q8HR #20 tab.rapdis 01/31/18 Unknown Rx Furosemide [Lasix TAB] 20 mg PO Q48H PRN #15 tablet 02/06/18 Unknown Rx Potassium Chloride [Klor-Con 10] 10 meq PO DAILY #30 02/06/18 Unknown Rx Meclizine [Antivert] 25 mg PO TID PRN #20 tablet 02/10/18 Unknown Rx Acetaminophen [Tylenol Extra 500 mg PO QID PRN #15 tablet 02/12/18 Unknown Rx Strength] HYDROcodone/APAP 5-325 [Plummer 1 each PO Q6HR PRN #14 tablet 10/02/18 Unknown Rx 5/325] Ondansetron [Zofran Odt] 4 mg PO Q8HR PRN #14 tab.rapdis 10/02/18 Unknown Rx Allergies Allergy/AdvReac Type Severity Reaction Status Date / Time amoxicillin [Amoxicillin] Allergy Rash Verified 11/22/15 06:47 Penicillins Allergy Rash Verified 11/22/15 06:47 Sulfa (Sulfonamide Allergy Rash Verified 11/22/15 06:35 Antibiotics) ED Review of Systems ROS: Stated complaint: AMS/HYPOGLYCEMIA Other details as noted in HPI Constitutional: denies: fever ENT: denies: throat pain, congestion Respiratory: denies: cough Gastrointestinal: denies: abdominal pain, nausea, vomiting Skin: denies: rash, lesions ED Past Medical Hx - Past Medical History Previous Medical History?: Yes Hx Hypertension: Yes (FOR 5 YRS, DR. 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 BREAST CYSTS IN THE 60'S) Additional Surgical History: Hysterectomy - Social History Smoking Status: Never Smoker Substance Use Type: None - Medications Home Medications: Home Medications Medication Instructions Recorded Confirmed Last Taken Type Duloxetine HCl [Cymbalta] 30 mg PO BID 11/14/15 02/10/18 11/21/15 History Levothyroxine [Synthroid] 100 mcg PO QAM 11/14/15 02/10/18 11/22/15 03:00 History Lisinopril [Zestril TAB] 40 mg PO BID 11/14/15 02/10/18 11/22/15 03:00 History Carvedilol [Coreg] 3.125 mg PO BID 01/31/18 02/10/18 Unknown History Donepezil HCl 5 mg PO DAILY 01/31/18 02/10/18 Unknown History ISOSORBIDE MONOnitrate [Imdur ER] 60 mg PO QDAY 01/31/18 02/10/18 Unknown History Mirtazapine [Remeron 30mg TAB] 30 mg PO QHS 01/31/18 02/10/18 Unknown History Niraparib Tosylate [Zejula] 100 mg PO DAILY 01/31/18 02/10/18 Unknown History Ondansetron [Zofran ODT TAB] 8 mg PO Q8HR #20 tab.rapdis 01/31/18 02/10/18 Unknown Rx Furosemide [Lasix TAB] 20 mg PO Q48H PRN #15 tablet 02/06/18 02/10/18 Unknown Rx Potassium Chloride [Klor-Con 10] 10 meq PO DAILY #30 02/06/18 02/10/18 Unknown Rx Meclizine [Antivert] 25 mg PO TID PRN #20 tablet 02/10/18 Unknown Rx Acetaminophen [Tylenol Extra 500 mg PO QID PRN #15 tablet 02/12/18 Unknown Rx Strength] HYDROcodone/APAP 5-325 [Plummer 1 each PO Q6HR PRN #14 tablet 10/02/18 Unknown Rx 5/325] Ondansetron [Zofran Odt] 4 mg PO Q8HR PRN #14 tab.rapdis 10/02/18 Unknown Rx ED Physical Exam - General Limitations: Altered Mental Status, Physical Limitation General appearance: alert, in no apparent distress - Head Head exam: Present: atraumatic, normocephalic - Eye Eye exam: Present: normal appearance, PERRL, EOMI - Neck Neck exam: Present: normal inspection, full ROM. Absent: tenderness, meningismu s, lymphadenopathy - Respiratory Respiratory exam: Present: normal lung sounds bilaterally. Absent: respiratory distress, wheezes, rales, rhonchi, stridor, chest wall tenderness, accessory muscle use, decreased breath sounds, prolonged expiratory - Cardiovascular Cardiovascular Exam: Present: regular rate, normal rhythm, normal heart sounds. Absent: bradycardia, tachycardia, irregular rhythm, systolic murmur, diastolic murmur, rubs, gallop - GI/Abdominal GI/Abdominal exam: Present: soft, normal bowel sounds. Absent: distended, tenderness, guarding, rebound, rigid, diminished bowel sounds - Extremities Exam Extremities exam: Present: normal inspection, full ROM - Back Exam Back exam: Present: normal inspection, full ROM. Absent: tenderness, CVA tenderness (R), CVA tenderness (L), muscle spasm, paraspinal tenderness, vertebral tenderness, rash noted - Neurological Exam Neurological exam: Present: altered - Skin Skin exam: Present: warm, dry, intact, normal color. Absent: rash - Other Other exam information: Patient has hard emesis covered and chest, fingers, feet and back. - Assessment Assessment Interval: 7-10 Days - Level of Consciousness 1a. Level of Consciousness: alert/keenly responsive - LOC Questions 1b. LOC Questions: answers both correctly - LOC Command 1c. LOC Commands: performs tasks correctly - Best Gaze 2. Best Gaze: normal - Visual 3. Visual: no visual loss - Facial Palsy 4. Facial Palsy: normal symmetrical movement - Motor Arm 5a. Motor Arm Left: no drift 5b. Motor Arm Right: no drift - Motor Leg 6a. Motor Leg Left: no drift 6b. Motor Leg Right: no drift - Limb Ataxia 7. Limb Ataxia: absent - Sensory 8. Sensory: normal - Best Language 9. Best Language: no aphasia - Dysarthria 10. Dysarthria: normal - Extinction and Inattention 11. Extinction/Inattention: no abnormality - Scoring Total Score: 0 Stroke Severity: No Stroke Symptoms ED Course Vital Signs 05/10/19 05/10/19 05/10/19 20:19 20:30 20:40 Temperature 97.5 F L Pulse Rate 71 Respiratory 10 L 15 Rate Blood Pressure 113/54 O2 Sat by Pulse 92 Oximetry 05/10/19 05/10/19 05/10/19 20:46 21:00 21:16 Temperature Pulse Rate 70 89 73 Respiratory 15 21 18 Rate Blood Pressure 113/54 117/23 117/23 O2 Sat by Pulse 99 99 Oximetry 05/10/19 21:30 Temperature Pulse Rate 81 Respiratory 14 Rate Blood Pressure 100/55 O2 Sat by Pulse 99 Oximetry - Reevaluation(s) Reevaluation #1: 05/10/19 21:58 Patient is resting comfortably but is altered. Vital signs are stable. - Consultations Consultation #1: 05/10/19 22:19 Patient has been consulted with Dr. Morgan (hospitalist) about patient history, physical exam, and labs/CT results and accepts patient for admission. - Lab Data Result diagrams: 05/10/19 20:14 05/10/19 20:14 Lab Results 05/10/19 05/10/19 05/10/19 Range/Units 20:14 20:14 20:14 WBC 17.9 H (4.5-11.0) K/mm3 RBC 3.42 L (3.65-5.03) M/mm3 Hgb 12.2 (10.1-14.3) gm/dl Hct 36.1 (30.3-42.9) % MCV 106 H (79-97) fl MCH 36 H (28-32) pg MCHC 34 (30-34) % RDW 15.5 H (13.2-15.2) % Plt Count 231 (140-440) K/mm3 Lymph % (Auto) 4.7 L (13.4-35.0) % Hand % (Auto) 5.3 (0.0-7.3) % Eos % (Auto) 0.4 (0.0-4.3) % Baso % (Auto) 0.3 (0.0-1.8) % Lymph # 0.8 L (1.2-5.4) K/mm3 Hand # 0.9 H (0.0-0.8) K/mm3 Eos # 0.1 (0.0-0.4) K/mm3 Baso # 0.1 (0.0-0.1) K/mm3 Seg Neutrophils % 89.3 H (40.0-70.0) % Seg Neutrophils # 16.0 H (1.8-7.7) K/mm3 PT 12.9 (12.2-14.9) Sec. INR 1.00 (0.87-1.13) APTT 29.7 (24.2-36.6) Sec. Sodium (137-145) mmol/L Potassium (3.6-5.0) mmol/L Chloride (98-107) mmol/L Carbon Dioxide (22-30) mmol/L Anion Gap mmol/L BUN (7-17) mg/dL Creatinine (0.7-1.2) mg/dL Estimated GFR ml/min BUN/Creatinine Ratio % Glucose (65-100) mg/dL Lactic Acid 1.60 (0.7-2.0) mmol/L Calcium (8.4-10.2) mg/dL Total Bilirubin (0.1-1.2) mg/dL AST (5-40) units/L ALT (7-56) units/L Alkaline Phosphatase (35-129) units/L Troponin T (0.00-0.029) ng/mL Total Protein (6.3-8.2) g/dL Albumin (3.9-5) g/dL Albumin/Globulin Ratio % Triglycerides (2-149) mg/dL Cholesterol (50-199) mg/dL LDL Cholesterol Direct (50-130) mg/dL HDL Cholesterol (40-59) mg/dL Cholesterol/HDL Ratio % 05/10/19 Range/Units 20:14 WBC (4.5-11.0) K/mm3 RBC (3.65-5.03) M/mm3 Hgb (10.1-14.3) gm/dl Hct (30.3-42.9) % MCV (79-97) fl MCH (28-32) pg MCHC (30-34) % RDW (13.2-15.2) % Plt Count (140-440) K/mm3 Lymph % (Auto) (13.4-35.0) % Hand % (Auto) (0.0-7.3) % Eos % (Auto) (0.0-4.3) % Baso % (Auto) (0.0-1.8) % Lymph # (1.2-5.4) K/mm3 Hand # (0.0-0.8) K/mm3 Eos # (0.0-0.4) K/mm3 Baso # (0.0-0.1) K/mm3 Seg Neutrophils % (40.0-70.0) % Seg Neutrophils # (1.8-7.7) K/mm3 PT (12.2-14.9) Sec. INR (0.87-1.13) APTT (24.2-36.6) Sec. Sodium 143 (137-145) mmol/L Potassium 4.8 (3.6-5.0) mmol/L Chloride 106.5 (98-107) mmol/L Carbon Dioxide 19 L (22-30) mmol/L Anion Gap 22 mmol/L BUN 73 H (7-17) mg/dL Creatinine 1.9 H (0.7-1.2) mg/dL Estimated GFR 26 ml/min BUN/Creatinine Ratio 38 % Glucose 105 H (65-100) mg/dL Lactic Acid (0.7-2.0) mmol/L Calcium 9.8 (8.4-10.2) mg/dL Total Bilirubin 0.80 (0.1-1.2) mg/dL AST 87 H (5-40) units/L ALT 37 (7-56) units/L Alkaline Phosphatase 77 (35-129) units/L Troponin T 0.050 H (0.00-0.029) ng/mL Total Protein 7.7 (6.3-8.2) g/dL Albumin 4.6 (3.9-5) g/dL Albumin/Globulin Ratio 1.5 % Triglycerides 170 H (2-149) mg/dL Cholesterol 306 H (50-199) mg/dL LDL Cholesterol Direct 218 H (50-130) mg/dL HDL Cholesterol 64 H (40-59) mg/dL Cholesterol/HDL Ratio 4.78 % - Medical Decision Making This is a 78-year-old female that presents with altered mental status. Vital signs are stable. Labs has been obtained. A CT of cervical and head has been obtained. Patient is admitted with Dr. Morgan. NIHSS 0. Patient received normal saline as well as levofloxacin. At time of admission, the patient does not seem toxic or ill in appearance. No acute signs of distress noted. - NEXUS Criteria Focal neurological deficit present: No Midline spinal tenderness present: No Altered level of consciousness: No Intoxication present: No Distracting injury present: No NEXUS results: C-Spine can be cleared clinically by these results. Imaging is not required. Critical care attestation.: If time is entered above; I have spent that time in minutes in the direct care of this critically ill patient, excluding procedure time. ED Disposition Clinical Impression: Altered mental status Qualifiers: Altered mental status type: unspecified Qualified Code(s): R41.82 - Altered mental status, unspecified Disposition: OP ADMIT IP TO THIS HOSP Is pt being admited?: Yes Condition: Stable
[2019-05-10] MEDS ORDERED: fentaNYL DRIP Premix 2,000 MCG/100 ML BAG IV SCH (23:00)
--- NOTE | 2019-05-10 23:04 | Cat Scan Report ---
Examination: CT of the cervical spine without contrast, 05/10/2019 Clinical information: Fall. History of trauma. Comparison: No relevant prior studies are available for comparison Technical: Multiple axial CT images of the cervical spine were obtained without intravenous contrast. Sagittal and coronal reformats were obtained. All CTs at this facility utilize dose reduction techn iques including automated exposure control, iterative reconstruction and weight based dosing when chrissy ropriate to reduce patient radiation dose to as low as reasonable achievable. Findings: There is gross normal alignment of the cervical vertebral bodies. Moderate multilevel degenerative ch anges noted, as evidence by facet arthropathy and anterior osteophyte formation. No acute bony fractu re is identified. Limited imaging of the bilateral lung apices shows no evidence of acute abnormality. Impression: 1. Mild to moderate bony degenerative change of the cervical spine without CT evidence of acute bony fracture. Signer Name: Gin Perkins MD Signed: 05/10/2019 10:59 PM Workstation Name: [id number]
--- NOTE | 2019-05-11 01:42 | Cat Scan Report ---
CT HEAD WITHOUT CONTRAST INDICATION / CLINICAL INFORMATION: Altered Mental Status. TECHNIQUE: All CT scans at this location are performed using CT dose reduction for ALARA by means of automated e xposure control. COMPARISON: CT dated 02/10/18 FINDINGS: HEMORRHAGE: None. EXTRA-AXIAL SPACES: Mildly prominent likely related to cortical atrophy, unchanged. VENTRICULAR SYSTEM: Normal in size and morphology for the patient's age. CEREBRAL PARENCHYMA: Old left frontoparietal infarct is unchanged. White matter hypodensities likely represent microangiopathy, unchanged. MIDLINE SHIFT OR HERNIATION: None. CEREBELLUM / BRAINSTEM: No significant abnormality. ORBITS: Normal as visualized. SOFT TISSUES of HEAD: No significant abnormality. CALVARIUM: No significant abnormality. PARANASAL SINUSES / MASTOID AIR CELLS: Normal as visualized. ADDITIONAL FINDINGS: None. IMPRESSION: 1. No acute intracranial abnormality. 2. Chronic and age-related findings. No significant change. Signer Name: Jake Frey MD Signed: 05/11/2019 1:38 AM Workstation Name: [id number]
--- NOTE | 2019-05-11 02:19 | History and Physical Report ---
History of Present Illness Date of examination: 05/11/19 History of present illness: Patient refused to participate in the interview, she is very rude and demanding history was obtained from old records. This is a 78-year-old woman with a history of hypertension, CVA, ovarian cancer was brought to the emergency room for evaluation of altered mental status. EMS found her in the basement covered in feces, stated that she was down there for 1 week. Patient is currently not altered. Review of system is unobtainable PAST MEDICAL HISTORY:hypertension, CVA, ovarian cancer PAST SURGICAL HISTORY: Pacemaker, hysterectomy, excision of breast cyst FAMILY HISTORY: hypertension SOCIAL HISTORY:Unknown Medications and Allergies Allergies Allergy/AdvReac Type Severity Reaction Status Date / Time amoxicillin [Amoxicillin] Allergy Rash Verified 11/22/15 06:47 Penicillins Allergy Rash Verified 11/22/15 06:47 Sulfa (Sulfonamide Allergy Rash Verified 11/22/15 06:35 Antibiotics) Home Medications Medication Instructions Recorded Confirmed Last Taken Type Duloxetine HCl [Cymbalta] 30 mg PO BID 11/14/15 02/10/18 11/21/15 History Levothyroxine [Synthroid] 100 mcg PO QAM 11/14/15 02/10/18 11/22/15 03:00 History Lisinopril [Zestril TAB] 40 mg PO BID 11/14/15 02/10/18 11/22/15 03:00 History Carvedilol [Coreg] 3.125 mg PO BID 01/31/18 02/10/18 Unknown History Donepezil HCl 5 mg PO DAILY 01/31/18 02/10/18 Unknown History ISOSORBIDE MONOnitrate [Imdur ER] 60 mg PO QDAY 01/31/18 02/10/18 Unknown History Mirtazapine [Remeron 30mg TAB] 30 mg PO QHS 01/31/18 02/10/18 Unknown History Niraparib Tosylate [Zejula] 100 mg PO DAILY 01/31/18 02/10/18 Unknown History Ondansetron [Zofran ODT TAB] 8 mg PO Q8HR #20 tab.rapdis 01/31/18 02/10/18 Unknown Rx Furosemide [Lasix TAB] 20 mg PO Q48H PRN #15 tablet 02/06/18 02/10/18 Unknown Rx Potassium Chloride [Klor-Con 10] 10 meq PO DAILY #30 18 02/10/18 Unknown Rx Meclizine [Antivert] 25 mg PO TID PRN #20 tablet 02/10/18 Unknown Rx Acetaminophen [Tylenol Extra 500 mg PO QID PRN #15 tablet 02/12/18 Unknown Rx Strength] HYDROcodone/APAP 5-325 [Zachary 1 each PO Q6HR PRN #14 tablet 10/02/18 Unknown Rx 5/325] Ondansetron [Zofran Odt] 4 mg PO Q8HR PRN #14 tab.rapdis 10/02/18 Unknown Rx Active Meds: Active Medications Enoxaparin Sodium (Lovenox) 30 mg SUB-Q QDAY DARIAN Sodium Chloride (Nacl 0.9% 1000 Ml) 1,000 mls @ 75 mls/hr IV DIRECT DARIAN Exam - Physical Exam Narrative exam: REFUSED TO BE EXAMINED - Constitutional Vitals: Temp Pulse Resp BP Pulse Ox 97.5 F L 96 H 22 96/64 83 L 05/10/19 20:40 05/11/19 01:00 05/11/19 01:00 05/11/19 01:00 05/11/19 01:00 Results - Labs CBC & Chem 7: 05/10/19 20:14 05/10/19 20:14 Labs: Abnormal lab results 05/10/19 05/10/19 Range/Units 20:14 20:14 WBC 17.9 H (4.5-11.0) K/mm3 RBC 3.42 L (3.65-5.03) M/mm3 MCV 106 H (79-97) fl MCH 36 H (28-32) pg RDW 15.5 H (13.2-15.2) % Lymph % (Auto) 4.7 L (13.4-35.0) % Lymph # 0.8 L (1.2-5.4) K/mm3 [place] # 0.9 H (0.0-0.8) K/mm3 Seg Neutrophils % 89.3 H (40.0-70.0) % Seg Neutrophils # 16.0 H (1.8-7.7) K/mm3 Carbon Dioxide 19 L (22-30) mmol/L BUN 73 H (7-17) mg/dL Creatinine 1.9 H (0.7-1.2) mg/dL Glucose 105 H (65-100) mg/dL AST 87 H (5-40) units/L Troponin T 0.050 H (0.00-0.029) ng/mL Triglycerides 170 H (2-149) mg/dL Cholesterol 306 H (50-199) mg/dL LDL Cholesterol Direct 218 H (50-130) mg/dL HDL Cholesterol 64 H (40-59) mg/dL - Imaging and Cardiology EKG: image reviewed Chest x-ray: report reviewed CT Scan - head: report reviewed Assessment and Plan cT cervical spine reviewed Assessment SIRS Renal failure, acute Dehydration Abnormal cardiac enzymes Rhabdomyoma lysis Hypertension History of CVA Plan Start Levaquin, obtain cultures Start IV fluid, CM consult Cardiac enzymes, echo DVT prophylaxis
[2019-05-11 04:42] LABS: Creatine Kinase MB 9.1 ng/mL (0.0-4.0)
[2019-05-11] MEDS: SODIUM CHLORIDE 0.9% 1000 ML 1,000 ML IV SCH ×2 (06:15→22:15)
[2019-05-11 08:27] LABS: Basophils # (Auto) 0.1 K/mm3 (0.0-0.1); Basophils % (Auto) 0.5 % (0.0-1.8); Eosinophils # (Auto) 0.3 K/mm3 (0.0-0.4); Eosinophils % (Auto) 2.2 % (0.0-4.3); Hematocrit 33.7 % (30.3-42.9); Hemoglobin 11.4 gm/dl (10.1-14.3); Lymphocytes # (Auto) 0.7 K/mm3 (1.2-5.4); Mean Corpuscular HGB Conc 34 % (30-34); Mean Corpuscular Volume 107 fl (79-97); Monocytes # (Auto) 0.6 K/mm3 (0.0-0.8); Platelet Count 195 K/mm3 (140-440); Red Blood Count 3.16 M/mm3 (3.65-5.03); Red Cell Distribution Width 15.9 % (13.2-15.2)
[2019-05-11 08:43] LABS: Calcium 9.1 mg/dL (8.4-10.2)
[2019-05-11 08:52] LABS: Creatine Kinase MB 8.3 ng/mL (0.0-4.0)
[2019-05-11] MEDS ORDERED: levoFLOXacin 750 MG TAB PO SCH (10:00)
[2019-05-11] MEDS: ENOXAPARIN 30 MG/0.3 ML INJ SUB-Q SCH (10:05)
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
--- NOTE | 2019-05-11 12:56 | Consultation ---
History of Present Illness - Reason for Consult Consult date: 05/11/19 Reason for consult: Mental Health Evaluation Requesting physician: ANNIE VALENZUELA - Chief Complaint Chief complaint: "Get out" - History of Present Psychiatric Illness 78 y.o. white female who presented to the hospital for AMS. Today the patient was agitated during the assessment. Upon my arrival to the patient's room she asked for assistance so she can eat her lunch. I the provider attempted to confirm that the patient wasn't NPO. She became upset with me. The patient's assigned nurse tech arrived and assisted the patient so she can eat. Several attempts was made to engage the patient, she refused to cooperate and asked me the provider to leave. No gestures of SI/HI's. Medications and Allergies Allergies Allergy/AdvReac Type Severity Reaction Status Date / Time amoxicillin [Amoxicillin] Allergy Rash Verified 11/22/15 06:47 Penicillins Allergy Rash Verified 11/22/15 06:47 Sulfa (Sulfonamide Allergy Rash Verified 11/22/15 06:35 Antibiotics) Home Medications Medication Instructions Recorded Confirmed Last Taken Type Duloxetine HCl [Cymbalta] 30 mg PO BID 11/14/15 02/10/18 11/21/15 History Levothyroxine [Synthroid] 100 mcg PO QAM 11/14/15 02/10/18 11/22/15 03:00 History Lisinopril [Zestril TAB] 40 mg PO BID 11/14/15 02/10/18 11/22/15 03:00 History Carvedilol [Coreg] 3.125 mg PO BID 01/31/18 02/10/18 Unknown History Donepezil HCl 5 mg PO DAILY 01/31/18 02/10/18 Unknown History ISOSORBIDE MONOnitrate [Imdur ER] 60 mg PO QDAY 01/31/18 02/10/18 Unknown History Mirtazapine [Remeron 30mg TAB] 30 mg PO QHS 01/31/18 02/10/18 Unknown History Niraparib Tosylate [Zejula] 100 mg PO DAILY 01/31/18 02/10/18 Unknown History Ondansetron [Zofran ODT TAB] 8 mg PO Q8HR #20 tab.rapdis 01/31/18 02/10/18 Unk nown Rx Furosemide [Lasix TAB] 20 mg PO Q48H PRN #15 tablet 02/06/18 02/10/18 Unknown Rx Potassium Chloride [Klor-Con 10] 10 meq PO DAILY #30 02/06/18 02/10/18 Unknown Rx Meclizine [Antivert] 25 mg PO TID PRN #20 tablet 02/10/18 Unknown Rx Acetaminophen [Tylenol Extra 500 mg PO QID PRN #15 tablet 02/12/18 Unknown Rx Strength] HYDROcodone/APAP 5-325 [[place] 1 each PO Q6HR PRN #14 tablet 10/02/18 Unknown Rx 5/325] Ondansetron [Zofran Odt] 4 mg PO Q8HR PRN #14 tab.rapdis 10/02/18 Unknown Rx Active Meds: Active Medications Acetaminophen (Tylenol) 650 mg PO Q4H PRN PRN Reason: Pain MILD(1-3)/Fever >100.5/BEVERLY Carvedilol (Coreg) 3.125 mg PO BID DARIAN Enoxaparin Sodium (Lovenox) 30 mg SUB-Q QDAY [facility] Last Admin: 05/11/19 10:05 Dose: 30 mg Documented by: Sodium Chloride (Nacl 0.9% 1000 Ml) 1,000 mls @ 75 mls/hr IV DIRECT [facility] Last Admin: 05/11/19 06:15 Dose: 75 mls/hr Documented by: Levofloxacin (Levaquin) 500 mg PO Q48HR DARIAN Ondansetron HCl (Zofran) 4 mg IV Q8H PRN PRN Reason: Nausea And Vomiting Sodium Chloride (Sodium Chloride Flush Syringe 10 Ml) 10 ml IV BID DARIAN Sodium Chloride (Sodium Chloride Flush Syringe 10 Ml) 10 ml IV PRN PRN PRN Reason: LINE FLUSH Past psychiatric history - Past Medical History Past Medical History: other (Unable to obtain ) Past Surgical History: Other (Unable to obtain) - past Psychiatric treatment and history psychiatric treatment history: Unable to obtain a psy hx and fam psy hx. - Social History Social history: lives with family, other Mental Status Exam - Vital signs Last Vital Signs Temp 97.4 F L 05/11/19 07:58 Pulse 64 05/11/19 07:58 Resp 16 05/11/19 07:58 BP 119/62 05/11/19 07:58 Pulse Ox 88 05/11/19 07:58 - Exam Narrative exam: Unable to complete the MSE because the patient refused to cooperate. Results Result Diagrams: 05/12/19 05:19 05/12/19 05:19 Abnormal lab results 05/10/19 05/10/19 05/11/19 Range/Units 20:14 20:14 01:40 WBC 17.9 H (4.5-11.0) K/mm3 RBC 3.42 L (3.65-5.03) M/mm3 MCV 106 H (79-97) fl MCH 36 H (28-32) pg RDW 15.5 H (13.2-15.2) % Lymph % (Auto) 4.7 L (13.4-35.0) % Lymph # 0.8 L (1.2-5.4) K/mm3 [place] # 0.9 H (0.0-0.8) K/mm3 Seg Neutrophils % 89.3 H (40.0-70.0) % Seg Neutrophils # 16.0 H (1.8-7.7) K/mm3 Carbon Dioxide 19 L (22-30) mmol/L BUN 73 H (7-17) mg/dL Creatinine 1.9 H (0.7-1.2) mg/dL Glucose 105 H (65-100) mg/dL AST 87 H (5-40) units/L Total Creatine Kinase (30-135) units/L CK-MB (CK-2) (0.0-4.0) ng/mL Troponin T 0.050 H 0.045 H (0.00-0.029) ng/mL Triglycerides 170 H (2-149) mg/dL Cholesterol 306 H (50-199) mg/dL LDL Cholesterol Direct 218 H (50-130) mg/dL HDL Cholesterol 64 H (40-59) mg/dL 05/11/19 05/11/19 05/11/19 Range/Units 03:45 08:16 08:16 WBC 11.9 H (4.5-11.0) K/mm3 RBC 3.16 L (3.65-5.03) M/mm3 MCV 107 H (79-97) fl MCH 36 H (28-32) pg RDW 15.9 H (13.2-15.2) % Lymph % (Auto) 6.0 L (13.4-35.0) % Lymph # 0.7 L (1.2-5.4) K/mm3 [place] # (0.0-0.8) K/mm3 Seg Neutrophils % 86.3 H (40.0-70.0) % Seg Neutrophils # 10.3 H (1.8-7.7) K/mm3 Carbon Dioxide (22-30) mmol/L BUN (7-17) mg/dL Creatinine (0.7-1.2) mg/dL Glucose (65-100) mg/dL AST (5-40) units/L Total Creatine Kinase 581 H 480 H (30-135) units/L CK-MB (CK-2) 9.1 H 8.3 H (0.0-4.0) ng/mL Troponin T 0.053 H 0.050 H (0.00-0.029) ng/mL Triglycerides (2-149) mg/dL Cholesterol (50-199) mg/dL LDL Cholesterol Direct (50-130) mg/dL HDL Cholesterol (40-59) mg/dL 05/11/19 Range/Units 08:16 WBC (4.5-11.0) K/mm3 RBC (3.65-5.03) M/mm3 MCV (79-97) fl MCH (28-32) pg RDW (13.2-15.2) % Lymph % (Auto) (13.4-35.0) % Lymph # (1.2-5.4) K/mm3 [place] # (0.0-0.8) K/mm3 Seg Neutrophils % (40.0-70.0) % Seg Neutrophils # (1.8-7.7) K/mm3 Carbon Dioxide 20 L (22-30) mmol/L BUN 70 H (7-17) mg/dL Creatinine 1.8 H (0.7-1.2) mg/dL Glucose 141 H (65-100) mg/dL AST (5-40) units/L Total Creatine Kinase (30-135) units/L CK-MB (CK-2) (0.0-4.0) ng/mL Troponin T (0.00-0.029) ng/mL Triglycerides (2-149) mg/dL Cholesterol (50-199) mg/dL LDL Cholesterol Direct (50-130) mg/dL HDL Cholesterol (40-59) mg/dL All other labs normal. Assessment and Plan Assessment and plan: Impression: Today the patient was agitated during the assessment. Recommendation/Plan: Will attempt to reassess the patient in [address] Jacy Acharya.
[2019-05-11] MEDS: carvediloL 3.125 MG TAB PO SCH (22:14)
[2019-05-12 06:01] LABS: Basophils # (Auto) 0.1 K/mm3 (0.0-0.1); Eosinophils # (Auto) 0.4 K/mm3 (0.0-0.4); Eosinophils % (Auto) 5.3 % (0.0-4.3); Hematocrit 32.7 % (30.3-42.9); Hemoglobin 11.5 gm/dl (10.1-14.3); Lymphocytes # (Auto) 0.7 K/mm3 (1.2-5.4); Lymphocytes % (Auto) 9.5 % (13.4-35.0); Mean Corpuscular HGB Conc 35 % (30-34); Mean Corpuscular Volume 107 fl (79-97); Monocytes # (Auto) 0.5 K/mm3 (0.0-0.8); Monocytes % (Auto) 6.6 % (0.0-7.3); Platelet Count 180 K/mm3 (140-440); Red Blood Count 3.07 M/mm3 (3.65-5.03); Red Cell Distribution Width 15.8 % (13.2-15.2)
[2019-05-12 06:13] LABS: Calcium 8.7 mg/dL (8.4-10.2)
[2019-05-12] MEDS: carvediloL 3.125 MG TAB PO SCH ×2 (10:28→21:17)
[2019-05-12] MEDS: levoFLOXacin 500 MG TAB PO SCH (10:30)
[2019-05-12] MEDS: ENOXAPARIN 30 MG/0.3 ML INJ SUB-Q SCH (10:30)
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
[2019-05-12] MEDS: SODIUM CHLORIDE 0.9% 1000 ML 1,000 ML IV SCH (12:58)
--- NOTE | 2019-05-12 13:50 | Progress Note ---
Subjective - Reason for Consult Consult date: 05/12/19 Reason for consult: Psychiatry Follow-up - Chief Complaint Chief complaint: "How are you" 78 y.o. white female who presented to the hospital for AMS. Today the patient was calm, but somewhat confused during the assessment. Today the patient was more engaging, She was able to state her and the current/past [place] Presidents. She was not able to recall numbers in 5 mins. Some of her answers to questiions were not logical. The patient was able to state that she has a hx of depression and take Cymbalta. She stated that her PCP manage all her medications. Per collateral information from her sister Talia Oh at [phone], she stated that the patient have been declining for the past 3 years. She stated that the patient struggle with her ADL's. Ms Oh stated that she does not think the patient is safe to return home. Per the record, the patient had no behavioral disturbances overnight. The patient denies SI/HI's and AVH's. Mental Status Exam - Vital signs Last Vital Signs Temp 98.4 F 05/12/19 03:51 Pulse 74 05/12/19 10:37 Resp 16 05/12/19 03:51 BP 105/54 05/12/19 10:28 Pulse Ox 98 05/12/19 03:51 - Exam Narrative exam: MSE: Appearance: calm Behavior: regular eye contact Speech: regular rate and tone Mood: "okay" Affect: congruent to mood Thought Process: somewhat confused Thought Content: denies SI/HI's and AVH's Motor Activity: sitting up in chair Cognition: A/O x2 Insight: variable Judgment: variable to fair Assessment and Plan Impression: Neuro Cog DO. Hx of Depression. Today the patient was calm, but somewhat confused during the assessment. CR 1.5, but trending down. DDx: Dementia, Delirium Recommendation/Plan: Start home medication Cymbalta 30 mg PO BID for depression. Attempted to discussed possible sucidality/medication induced danya with the patient reference Cymbalta. Recommend Delirium precautions below: 1. Frequently reorient patient and involve him/her in their care (simple explanations of procedures, tests, medications). 2. Lights on and shades open during daytime hours. 3. Write date and goals of care in a visible place. 4. Try to avoid unnecessary interruptions to sleep during nighttime hours. 5. Obtain glasses, hearing aids from home if patient uses these at baseline. 6. Avoid medications that may exacerbate delirium (especially narcotics, benzodiazepines, barbiturates, ambien, lunesta, and medications with excessive anticholinergic properties). Dispo: The patient is pending SNF placement once discharged. Staffed with Dr Jacy Acharya.
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
[2019-05-12] MEDS: DULoxetine 30 MG CAP PO SCH (19:36)
[2019-05-12] MEDS: ONDANSETRON 4 MG/2 ML INJ IV PRN (21:20)
[2019-05-13 02:18] LABS: Bilirubin,Urine NEG (Negative); Blood,Urine SM (Negative); Color,Urine Yellow (Yellow); Mucus,Urine FEW /HPF; Protein,Urine <15 mg/dL mg/dL (Negative); Urobilinogen,Urine < 2.0 mg/dL (<2.0)
[2019-05-13] MEDS: ACETAMINOPHEN 325 MG TAB PO PRN (03:34)
[2019-05-13] MEDS: SODIUM CHLORIDE 0.9% 1000 ML 1,000 ML IV SCH (03:35)
--- NOTE | 2019-05-13 09:07 | Event Note ---
Date: 05/13/19 no new cardiac complaints vss tele: paced rhythm General: No Apparent Distress, Other (confused) HEENT: Positive: PERRL, Normocephaly, Mucus Membranes Moist Cardiac: Positive: irregularly irregular, S1/S2 Lungs: Positive: Decreased Breath Sounds Neuro: Positive: Grossly Intact, Other (confused) Skin: Negative: Rash Musculoskeletal: No Pain Extremities: Absent: edema Altered mental status/confusion Elevated troponin/Dehydration/Rhabdomyolysis Chronic atrial fibrillation/PPM in situ H/O ICH Cardiomyopathy EF 35-40% continue current mgt no new card rec at this time no family member present at bedside
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
[2019-05-13] MEDS: DULoxetine 30 MG CAP PO SCH (10:17)
[2019-05-13] MEDS: ENOXAPARIN 30 MG/0.3 ML INJ SUB-Q SCH (10:17)
[2019-05-13] MEDS: carvediloL 3.125 MG TAB PO SCH ×2 (10:18→22:07)
--- NOTE | 2019-05-13 10:34 | Progress Note ---
Subjective - Reason for Consult Consult date: 05/13/19 Reason for consult: Psychiatry Follow-up - Chief Complaint Chief complaint: "I am okay" 78 y.o. white female who presented to the hospital for AMS. Today the patient was calm during the assessment. The patient was pleasant and engaging this morning. She stated that she got rest. Some of her answers to questions were not logical. Per the notes, no behavioral disturbances overnight. She denies SI/HI's and AVH's. Mental Status Exam - Vital signs Last Vital Signs Temp 97.3 F L 05/13/19 08:21 Pulse 78 05/13/19 10:18 Resp 19 05/13/19 08:21 BP 118/66 05/13/19 10:18 Pulse Ox 99 05/13/19 08:21 - Exam Narrative exam: MSE: Appearance: calm Behavior: regular eye contact Speech: regular rate and tone Mood: "okay" Affect: congruent to mood Thought Process: somewhat confused Thought Content: denies SI/HI's and AVH's Motor Activity: sitting up in chair Cognition: A/O x2 Insight: variable Judgment: fair Assessment and Plan Impression: Neuro Cog DO. Hx of Depression. Today the patient was calm during the assessment. CR 1.5, but trending down. WBC elevated in urine. DDx: Dementia, Delirium Recommendation/Plan: Continue home medication Cymbalta 30 mg PO BID for depression. Attempted to discussed possible sucidality/medication induced danya with the patient reference Cymbalta. Recommend Delirium precautions below: 1. Frequently reorient patient and involve him/her in their care (simple explanations of procedures, tests, medications). 2. Lights on and shades open during daytime hours. 3. Write date and goals of care in a visible place. 4. Try to avoid unnecessary interruptions to sleep during nighttime hours. 5. Obtain glasses, hearing aids from home if patient uses these at baseline. 6. Avoid medications that may exacerbate delirium (especially narcotics, benzodiazepines, barbiturates, ambien, lunesta, and medications with excessive anticholinergic properties). Dispo: The patient is pending SNF placement once discharged. Will staff with Dr Jacy Acharya.
[2019-05-14] MEDS: ACETAMINOPHEN 325 MG TAB PO PRN (04:49)
--- NOTE | 2019-05-14 08:54 | Event Note ---
Date: 05/14/19 no new cardiac complaints vss tele: paced rhythm General: No Apparent Distress, Other (confused) HEENT: Positive: PERRL, Normocephaly, Mucus Membranes Moist Cardiac: Positive: irregularly irregular, S1/S2 Lungs: Positive: Decreased Breath Sounds Neuro: Positive: Grossly Intact, Other (confused) Skin: Negative: Rash Musculoskeletal: No Pain Extremities: Absent: edema Altered mental status/confusion Elevated troponin/Dehydration/Rhabdomyolysis Chronic atrial fibrillation/PPM in situ H/O ICH Cardiomyopathy EF 35-40% continue current mgt no new card rec at this time psych input noted per initial card consult: No systemic AC due to frequent falls/dysequilibrium and h/o ICH. no family member present at bedside
[2019-05-14] MEDS: DULoxetine 30 MG CAP PO SCH (09:54)
[2019-05-14] MEDS: carvediloL 3.125 MG TAB PO SCH ×2 (09:54→21:20)
[2019-05-14] MEDS: levoFLOXacin 500 MG TAB PO SCH (09:55)
[2019-05-14] MEDS: ENOXAPARIN 30 MG/0.3 ML INJ SUB-Q SCH (09:55)
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
--- NOTE | 2019-05-14 11:04 | Progress Note ---
Subjective - Reason for Consult Consult date: 05/14/19 Reason for consult: Psychiatry Follow-up - Chief Complaint Chief complaint: "Hello" 78 y.o. white female who presented to the hospital for AMS. Today the patient was calm and cooperative during the assessment. The patient was less confused this morning. She answered most questions logically. She denies SI/HI's and AVH's. She denies any side effects from her medication. Mental Status Exam - Vital signs Last Vital Signs Temp 98.0 F 05/14/19 07:53 Pulse 82 05/14/19 09:54 Resp 18 05/14/19 07:53 BP 121/67 05/14/19 09:54 Pulse Ox 97 05/14/19 07:53 - Exam Narrative exam: MSE: Appearance: calm Behavior: regular eye contact Speech: regular rate and tone Mood: "okay" Affect: congruent to mood Thought Process: circumstantial Thought Content: denies SI/HI's and AVH's Motor Activity: sitting up in chair Cognition: A/O x2 Insight: variable to fair Judgment: fair Assessment and Plan Impression: Unspecified Neuro Cog DO. Hx of Depression. Today the patient was calm during the assessment. The patient's mental status is improving. DDx: Dementia, Delirium Recommendation/Plan: Continue home medication Cymbalta 30 mg PO BID for depression. Discussed possible sucidality/medication induced danya with the patient reference Cymbalta, she verbalized understanding. Recommend Delirium precautions below: 1. Frequently reorient patient and involve him/her in their care (simple explanations of procedures, tests, medications). 2. Lights on and shades open during daytime hours. 3. Write date and goals of care in a visible place. 4. Try to avoid unnecessary interruptions to sleep during nighttime hours. 5. Obtain glasses, hearing aids from home if patient uses these at baseline. 6. Avoid medications that may exacerbate delirium (especially narcotics, benzodiazepines, barbiturates, ambien, lunesta, and medications with excessive anticholinergic properties). Dispo: The patient is pending SNF placement once discharged. Staffed with Dr Jacy Acharya.
[2019-05-14] MEDS: ONDANSETRON 4 MG/2 ML INJ IV PRN (11:29)
[2019-05-14] MEDS: SODIUM CHLORIDE 0.9% 1000 ML 1,000 ML IV SCH (11:35)
--- NOTE | 2019-05-14 18:03 | Ultrasound Report ---
ULTRASOUND RENAL INDICATION: ARF, UTI. COMPARISON: No relevant prior imaging study available. FINDINGS: RIGHT KIDNEY: Size: 9.3 cm. Echogenicity: Normal. Cortical thickness: 1.1. Hydronephrosis: None. Cyst or mass: 2 simple cysts, largest of which measures 2.1 cm.. Stones: None. LEFT KIDNEY: Size: 9.0 cm. Echogenicity: Normal. Cortical thickness: 1.1. Hydronephrosis: None. Cyst or mass: None. Stones: 4 nonobstructing left intrarenal stones, largest of which measures 0.4 x 2.2 cm. Urinary Bladder: No significant abnormality. Free Fluid: None. Additional Findings: None. IMPRESSION 1. Left nephrolithiasis. No hydronephrosis. 2. Several simple right renal cysts.. Signer Name: Ector Ramos MD Signed: 05/14/2019 5:58 PM Workstation Name: [id number]
[2019-05-15] MEDS: ACETAMINOPHEN 325 MG TAB PO PRN (02:42)
[2019-05-15 08:03] LABS: Hematocrit 31.8 % (30.3-42.9); Hemoglobin 10.8 gm/dl (10.1-14.3); Mean Corpuscular HGB Conc 34 % (30-34); Mean Corpuscular Volume 107 fl (79-97); Platelet Count 180 K/mm3 (140-440); Red Blood Count 2.96 M/mm3 (3.65-5.03); Red Cell Distribution Width 15.4 % (13.2-15.2)
[2019-05-15 09:30] LABS: Band Neutrophils # (Manual) 0.1 K/mm3; Basophils % (Manual) 0 % (0.0-1.8); Total Cells Counted 100
[2019-05-15 10:19] LABS: Calcium 8.2 mg/dL (8.4-10.2)
[2019-05-15] MEDS: DULoxetine 30 MG CAP PO SCH (10:25)
[2019-05-15] MEDS: ENOXAPARIN 30 MG/0.3 ML INJ SUB-Q SCH (10:26)
[2019-05-15] MEDS: carvediloL 3.125 MG TAB PO SCH ×2 (10:26→21:54)
[2019-05-15 10:27] LABS: RBC Morphology Normal
[2019-05-15 10:28] LABS: Platelet Estimate Consistent w Auto
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
--- NOTE | 2019-05-15 14:08 | Progress Note ---
Subjective - Reason for Consult Consult date: 05/15/19 Reason for consult: Psychiatry follow-up - Chief Complaint Chief complaint: "I'm okay" 78 y.o. white female who presented to the hospital for AMS. Today the patient was calm with some confusion during the assessment. She was able to answer some questions asked of her reference her mental health and possible discharge. Overall, the patient's mental status have improved, but confusion is apparent wi th the patient. She denies SI/HI's and AVH's. No indication of side effects from her medication. Mental Status Exam - Vital signs Last Vital Signs Temp 98.7 F 05/15/19 12:05 Pulse 72 05/15/19 12:05 Resp 18 05/15/19 12:05 BP 128/67 05/15/19 12:05 Pulse Ox 99 05/15/19 12:05 - Exam Narrative exam: MSE: Appearance: calm Behavior: regular eye contact Speech: regular rate and tone Mood: "okay" Affect: congruent to mood Thought Process: circumstantial Thought Content: denies SI/HI's and AVH's Motor Activity: sitting up in chair Cognition: A/O x2, with confusion Insight: variable Judgment: variable to fair Assessment and Plan Impression: Unspecified Neuro Cog DO. Hx of Depression. Today the patient was calm during the assessment. Overall, the patient's mental status has improved, but confusion is apparent with the patient. Cr 1.0. DDx: Dementia, Delirium Recommendation/Plan: Continue home medication Cymbalta 30 mg PO BID for depression and start Namenda 5 mg PO daily for dementia symptoms. Discussed possible sucidality/medication induced danya with the patient reference Cymbalta, she verbalized understanding. Recommend Delirium precautions below: 1. Frequently reorient patient and involve him/her in their care (simple explanations of procedures, tests, medications). 2. Lights on and shades open during daytime hours. 3. Write date and goals of care in a visible place. 4. Try to avoid unnecessary interruptions to sleep during nighttime hours. 5. Obtain glasses, hearing aids from home if patient uses these at baseline. 6. Avoid medications that may exacerbate delirium (especially narcotics, benzodiazepines, barbiturates, ambien, lunesta, and medications with excessive anticholinergic properties). Dispo: The patient is pending SNF placement once discharged. Staffed with Dr Jacy Acharya.
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
[2019-05-15] MEDS: SODIUM CHLORIDE 0.9% 1000 ML 1,000 ML IV SCH (23:35)
[2019-05-16] MEDS: DULoxetine 30 MG CAP PO SCH (10:07)
[2019-05-16] MEDS: levoFLOXacin 500 MG TAB PO SCH (10:07)
[2019-05-16] MEDS: MEMANTINE 5 MG TAB PO SCH (10:07)
[2019-05-16] MEDS: carvediloL 3.125 MG TAB PO SCH ×2 (10:08→21:32)
[2019-05-16] MEDS: ENOXAPARIN 30 MG/0.3 ML INJ SUB-Q SCH (10:08)
[2019-05-16] MEDS: ACETAMINOPHEN 325 MG TAB PO PRN (10:18)
--- NOTE | 2019-05-16 11:13 | Progress Note ---
Subjective - Reason for Consult Consult date: 05/16/19 Reason for consult: Psychiatry Follow-up - Chief Complaint Chief complaint: "I'm a little sleepy" 78 y.o. white female who presented to the hospital for AMS. Today the patient was calm during the assessment. There's not a significant change in the patient's presentation. She did eat 100% of her breakfast and she was pleasant throughout the interview. She denies SI/HI's and AVH's. No indications of side effects from her medication. Mental Status Exam - Vital signs Last Vital Signs Temp 98.2 F 05/16/19 07:55 Pulse 78 05/16/19 10:08 Resp 20 05/16/19 10:18 BP 160/79 05/16/19 10:08 Pulse Ox 100 05/16/19 07:55 - Exam Narrative exam: MSE: Appearance: calm, cooperative Behavior: regular eye contact Speech: regular rate and tone Mood: "okay" Affect: congruent to mood Thought Process: circumstantial Thought Content: denies SI/HI's and AVH's Motor Activity: sitting up in chair Cognition: A/O x2, with confusion Insight: variable Judgment: variable to fair Assessment and Plan Impression: Unspecified Neuro Cog DO. Hx of Depression. Today the patient was calm during the assessment. Overall, the patient's mental status has improved, but confusion is apparent with the patient. Cr 1.0. DDx: Dementia, Delirium Recommendation/Plan: Continue home medication Cymbalta 30 mg PO BID for depression and Namenda 5 mg PO daily for dementia symptoms. Discussed possible sucidality/medication induced danya with the patient reference Cymbalta, she verbalized understanding. Psy sign off. Recommend Delirium precautions below: 1. Frequently reorient patient and involve him/her in their care (simple explanations of procedures, tests, medications). 2. Lights on and shades open during daytime hours. 3. Write date and goals of care in a visible place. 4. Try to avoid unnecessary interruptions to sleep during nighttime hours. 5. Obtain glasses, hearing aids from home if patient uses these at baseline. 6. Avoid medications that may exacerbate delirium (especially narcotics, benzodiazepines, barbiturates, ambien, lunesta, and medications with excessive anticholinergic properties). Dispo: The patient is pending SNF placement once discharged. Staffed with Dr Jacy Acharya.
[2019-05-16] MEDS: SODIUM CHLORIDE 0.9% 1000 ML 1,000 ML IV SCH (12:46)
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
[2019-05-17] MEDS: SODIUM CHLORIDE 0.9% 1000 ML 1,000 ML IV SCH ×2 (00:37→15:16)
[2019-05-17] MEDS: DULoxetine 30 MG CAP PO SCH (09:41)
[2019-05-17] MEDS: MEMANTINE 5 MG TAB PO SCH (09:41)
[2019-05-17] MEDS ORDERED: ENOXAPARIN 40 MG/0.4 ML INJ SUB-Q SCH (10:00)
[2019-05-17] MEDS: carvediloL 3.125 MG TAB PO SCH (11:00)
[2019-05-17 12:11] VITALS: BP 154/94
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
[2019-05-17] MEDS ORDERED: ACETAMINOPHEN 500 MG TAB PO PRN (14:31)
[2019-05-17] MEDS ORDERED: MECLIZINE 25 MG TAB PO PRN (14:31)
[2019-05-17] MEDS ORDERED: HYDROcodone/ACETAMINOPHEN 5-325 MG TAB PO PRN (14:31)
[2019-05-17] MEDS ORDERED: MIRTAZAPINE 30 MG TAB PO SCH (22:00)
[2019-05-17] MEDS ORDERED: DULoxetine 30 MG CAP PO SCH (22:00)
[2019-05-17] MEDS ORDERED: DULOXETINE HCL 30 MG PO SCH (22:00)
[2019-05-17] MEDS ORDERED: LISINOPRIL 20 MG TAB PO SCH (22:00)
[2019-05-18] MEDS ORDERED: DONEPEZIL 5 MG TAB PO SCH (10:00)
[2019-05-18] MEDS ORDERED: LEVOTHYROXINE 100 MCG TAB PO SCH (10:00)
[2019-05-18] MEDS ORDERED: NIRAPARIB TOSYLATE 100 MG PO SCH (10:00)
== END 2019-05-17 16:58 | DRG 871 ==
LOC: ED 18:48 → 4A 05-11 02:15
PROVIDERS: ADMIT Internal Medicine; ATTEND Internal Medicine
DX: A41.9 Sepsis, unspecified organism (principal); N17.0 Acute kidney failure with tubular necrosis; M62.82 Rhabdomyolysis; G93.40 Encephalopathy, unspecified; N39.0 Urinary tract infection, site not specified; I48.20 Chronic atrial fibrillation, unspecified; I50.22 Chronic systolic (congestive) heart failure; C56.9 Malignant neoplasm of unspecified ovary; I13.0 Hypertensive heart and chronic kidney disease with heart failure and stage 1 through stage 4 chronic kidney disease, or unspecified chronic kidney disease; I48.92 Unspecified atrial flutter; N18.9 Chronic kidney disease, unspecified; I08.1 Rheumatic disorders of both mitral and tricuspid valves; E86.0 Dehydration; Z86.73 Personal history of transient ischemic attack (TIA), and cerebral infarction without residual deficits; Z90.710 Acquired absence of both cervix and uterus; Z82.49 Family history of ischemic heart disease and other diseases of the circulatory system; Z95.0 Presence of cardiac pacemaker; Z88.1 Allergy status to other antibiotic agents; Z88.0 Allergy status to penicillin; Z88.2 Allergy status to sulfonamides; Z79.899 Other long term (current) drug therapy
CPT/HCPCS: 36415; 70450; 71045; 72125; 76770; 80048; 80053; 80061; 81001; 82140; 82550; 82553; 84484; 85007; 85025; 85610; 85730; 87040; 87086; 93005; 93010; 93306; G0378; J1650; J1956; J2405; J7030

== ENCOUNTER 2019-06-18 16:41 | Inpatient (IN) | payer MEDICARE ==
--- NOTE | 2019-06-18 18:41 | Emergency Department Report ---
ED General Adult HPI - General Chief complaint: Extremity Injury, Lower Stated complaint: WEAKNESS,RAGHAVENDRA Time Seen by Provider: 06/18/19 18:23 Source: patient Mode of arrival: Stretcher Limitations: Other - History of Present Illness Initial comments: Mrs. Olson is a 79y/o w/f with hx htn, cva with left residual weakness, dementia, Afib, pacemaker, pt resides in assisted living home. Pt presents via ems for weakness, sob, and right leg pain. There has been no fall injury or trauma, Pt is wheel chair bound is not accompanied at this time. Onset/Timin -: days(s) Severity scale (0 -10): 0 Consistency: intermittent Improves with: none Worsens with: none Associated Symptoms: cough, shortness of breath, weakness, other (LLE pain ) Treatments Prior to Arrival: none - Related Data Home Medications Medication Instructions Recorded Confirmed Last Taken Levothyroxine [Synthroid] 100 mcg PO QAM 11/14/15 05/18/19 11/22/15 03:00 Lisinopril [Zestril TAB] 40 mg PO BID 11/14/15 05/18/19 11/22/15 03:00 Carvedilol [Coreg] 3.125 mg PO BID 01/31/18 05/18/19 Unknown Donepezil HCl 5 mg PO DAILY 01/31/18 05/18/19 Unknown ISOSORBIDE MONOnitrate [Imdur ER] 60 mg PO QDAY 01/31/18 05/18/19 Unknown Niraparib Tosylate [Zejula] 100 mg PO DAILY 01/31/18 05/18/19 Unknown Previous Rx's Medication Instructions Recorded Last Taken Type Meclizine [Antivert] 25 mg PO TID PRN #20 tablet 02/10/18 Unknown Rx Acetaminophen [Tylenol Extra 500 mg PO QID PRN #15 tablet 02/12/18 Unknown Rx Strength] HYDROcodone/APAP 5-325 [[place] 1 each PO Q6HR PRN #14 tablet 10/02/18 Unknown Rx 5-325 mg TAB] DULoxetine [Cymbalta] 30 mg PO BID #60 capsule 05/25/19 Unknown Rx Mirtazapine [Remeron 30mg TAB] 30 mg PO QHS #30 05/25/19 Unknown Rx Ondansetron [Zofran ODT TAB] 4 mg PO Q8HR PRN #14 tab.rapdis 05/25/19 Unknown Rx Allergies Allergy/AdvReac Type Severity Reaction Status Date / Time amoxicillin [Amoxicillin] Allergy Rash Verified 11/22/15 06:47 Penicillins Allergy Rash Verified 11/22/15 06:47 Sulfa (Sulfonamide Allergy Rash Verified 11/22/15 06:35 Antibiotics) ED Review of Systems ROS: Stated complaint: WEAKNESS,RAGHAVENDRA Other details as noted in HPI Constitutional: denies: chills, fever Eyes: denies: eye pain, eye discharge, vision change ENT: congestion. denies: ear pain, throat pain Respiratory: cough, shortness of breath, wheezing Cardiovascular: denies: chest pain, palpitations Endocrine: no symptoms reported Gastrointestinal: denies: abdominal pain, nausea, vomiting, diarrhea Genitourinary: denies: urgency, dysuria, discharge Musculoskeletal: arthralgia. denies: back pain, joint swelling Skin: denies: rash, lesions Neurological: denies: headache, weakness, paresthesias Psychiatric: denies: anxiety, depression Hematological/Lymphatic: denies: easy bleeding, easy bruising ED Past Medical Hx - Past Medical History Hx Hypertension: Yes Hx CVA: Yes (2016 Left lower leg/foot weakness) Hx Renal Disease: No Hx Arthritis: Yes Hx Headaches / Migraines: Yes (MIGRAINES) Hx Seizures: No Hx Asthma: No Hx HIV: No - Surgical History Hx Pacemaker: Yes Hx Breast Surgery: Yes (EXCISION OF ANNA. BREAST CYSTS IN THE 60'S) Additional Surgical History: Hysterectomy - Social History Smoking Status: Never Smoker Substance Use Type: None - Medications Home Medications: Home Medications Medication Instructions Recorded Confirmed Last Taken Type Levothyroxine [Synthroid] 100 mcg PO QAM 11/14/15 05/18/19 11/22/15 03:00 History Lisinopril [Zestril TAB] 40 mg PO BID 11/14/15 05/18/19 11/22/15 03:00 History Carvedilol [Coreg] 3.125 mg PO BID 01/31/18 05/18/19 Unknown History Donepezil HCl 5 mg PO DAILY 01/31/18 05/18/19 Unknown History ISOSORBIDE MONOnitrate [Imdur ER] 60 mg PO QDAY 01/31/18 05/18/19 Unknown History Niraparib Tosylate [Zejula] 100 mg PO DAILY 01/31/18 05/18/19 Unknown History Meclizine [Antivert] 25 mg PO TID PRN #20 tablet 02/10/18 05/18/19 Unknown Rx Acetaminophen [Tylenol Extra 500 mg PO QID PRN #15 tablet 02/12/18 05/18/19 Unknown Rx Strength] HYDROcodone/APAP 5-325 [[place] 1 each PO Q6HR PRN #14 tablet 10/02/18 05/18/19 Unknown Rx 5-325 mg TAB] DULoxetine [Cymbalta] 30 mg PO BID #60 capsule 05/25/19 Unknown Rx Mirtazapine [Remeron 30mg TAB] 30 mg PO QHS #30 05/25/19 Unknown Rx Ondansetron [Zofran ODT TAB] 4 mg PO Q8HR PRN #14 tab.rapdis 05/25/19 Unknown Rx ED Physical Exam - General Limitations: Other General appearance: alert - Head Head exam: Present: atraumatic, normocephalic - Eye Eye exam: Present: normal appearance, PERRL, EOMI Pupils: Present: normal accommodation - ENT ENT exam: Present: normal orophraynx, mucous membranes moist - Neck Neck exam: Present: normal inspection, full ROM. Absent: tenderness, lymphadenopathy, thyromegaly - Respiratory Respiratory exam: Present: wheezes. Absent: rales, rhonchi, stridor, chest wall tenderness - Expanded Respiratory Exam Expanded Location: Wheezes: Right, Left, Upper - Cardiovascular Cardiovascular Exam: Present: regular rate, normal rhythm, normal heart sounds. Absent: systolic murmur, diastolic murmur, rubs, gallop - GI/Abdominal GI/Abdominal exam: Present: soft, normal bowel sounds. Absent: distended, tenderness, bruit, hernia - Rectal Rectal exam: Present: deferred - Extremities Exam Extremities exam: Present: normal inspection, full ROM, normal capillary refill. Absent: tenderness, pedal edema, joint swelling, calf tenderness - Back Exam Back exam: Present: normal inspection, full ROM. Absent: tenderness, CVA tenderness (R), CVA tenderness (L) - Neurological Exam Neurological exam: Present: alert, CN II-XII intact, motor sensory deficit - Expanded Neurological Exam Expanded Patient oriented to: Present: person, time Speech: Present: fluid speech Cranial nerves: EOM's Intact: Normal, Gag Reflex: Normal, Tongue Deviation: Normal, Nystagmus: Normal, Facial Sensation: Normal Upper motor neuron: Michael Neglect: Normal, Pronator Drift: Normal, Babinski Sign: Normal, Sensory Extinction: Normal Motor strength exam: RUE: 5, LUE: 5, RLE: 5, LLE: 4 Best Eye Response (Maritza): (4) open spontaneously Best Motor Response (Dunlap): (6) obeys commands Best Verbal Response (Amritza): (4) confused conversation Maritza Total: 14 - Psychiatric Psychiatric exam: Present: normal affect, normal mood - Skin Skin exam: Present: warm, dry, intact, normal color. Absent: rash ED Course Vital Signs 06/18/19 06/18/19 06/18/19 17:56 18:00 18:02 Temperature 99.5 F Pulse Rate 97 H 85 94 H Respiratory 12 25 H 14 Rate Blood Pressure 150/72 Blood Pressure 150/72 [Right] O2 Sat by Pulse 95 94 95 Oximetry 06/18/19 06/18/19 06/18/19 18:16 18:30 18:45 Temperature Pulse Rate 96 H 78 75 Respiratory 16 23 22 Rate Blood Pressure 160/87 147/71 157/63 Blood Pressure [Right] O2 Sat by Pulse 92 92 92 Oximetry ED Medical Decision Making - Lab Data Result diagrams: 06/18/19 18:50 06/18/19 18:50 Labs 06/18/19 06/18/19 06/18/19 18:50 18:50 19:24 WBC 5.0 RBC 3.20 L Hgb 11.5 Hct 33.6 MCV 105 H MCH 36 H MCHC 34 RDW 12.6 L Plt Count 114 L PT INR APTT Sodium 145 Potassium 3.4 L Chloride 106.2 Carbon Dioxide 24 Anion Gap 18 BUN 17 Creatinine 1.0 Estimated GFR 53 BUN/Creatinine Ratio 17 Glucose 107 H Calcium 9.0 Total Bilirubin 0.30 AST 22 ALT 8 Alkaline Phosphatase 79 Troponin T 0.020 NT-Pro-B Natriuret Pep 2866 H Total Protein 6.8 Albumin 3.8 L Albumin/Globulin Ratio 1.3 Urine Color Yellow Urine Turbidity Slightly-cloudy Urine pH 5.0 Ur Specific [place] 1.020 Urine Protein 30 mg/dl Urine Glucose (UA) Neg Urine Ketones Neg Urine Blood Sm Urine Nitrite Neg Urine Bilirubin Neg Urine Urobilinogen < 2.0 Ur Leukocyte Esterase Tr Urine WBC (Auto) 36.0 H Urine RBC (Auto) 3.0 U Epithel Cells (Auto) < 1.0 Urine Mucus Few 06/18/19 19:24 WBC RBC Hgb Hct MCV MCH MCHC RDW Plt Count PT 13.0 INR 0.99 APTT 34.1 Sodium Potassium Chloride Carbon Dioxide Anion Gap BUN Creatinine Estimated GFR BUN/Creatinine Ratio Glucose Calcium Total Bilirubin AST ALT Alkaline Phosphatase Troponin T NT-Pro-B Natriuret Pep Total Protein Albumin Albumin/Globulin Ratio Urine Color Urine Turbidity Urine pH Ur Specific [place] Urine Protein Urine Glucose (UA) Urine Ketones Urine Blood Urine Nitrite Urine Bilirubin Urine Urobilinogen Ur Leukocyte Esterase Urine WBC (Auto) Urine RBC (Auto) U Epithel Cells (Auto) Urine Mucus - Radiology Data Radiology results: report reviewed, image reviewed small right plueral effusion, patch bibasilar infiltrates - Medical Decision Making CXR: Right lower lobe pleural effusion, bibasilar lower lobe pneumonia, wbc :normal, bnp: 2866, ua: pos luek, wbc, bacteria, Lungs : mild exp wheezing, deminished bilat lower lower lobes, pt is 79 appears stated age, frail, plan: consult hospitalist for admission, dx: CHF exacerbation, CAP, UTI, consulted Hospitalist Dr. Rico, advised hospitalist will see in ed. 2031:Pt care handoff to Hospitalist at this time, plan :admission to hospitalist, Dx: CHF, UTI, pt verbalized agreement and understanding with tx. plan. Critical care attestation.: If time is entered above; I have spent that time in minutes in the direct care of this critically ill patient, excluding procedure time. ED Disposition Clinical Impression: Pleural effusion CHF (congestive heart failure) Qualifiers: Heart failure type: unspecified Heart failure chronicity: acute on chronic Qualified Code(s): I50.9 - Heart failure, unspecified UTI (urinary tract infection) Qualifiers: Urinary tract infection type: acute cystitis Hematuria presence: without hematuria Qualified Code(s): N30.00 - Acute cystitis without hematuria Disposition: OP ADMIT IP TO THIS HOSP Is pt being admited?: Yes Does the pt Need Aspirin: No Condition: Stable Time of Disposition: 20:33
--- NOTE | 2019-06-18 19:26 | XRay Report ---
CHEST 1 VIEW INDICATION / CLINICAL INFORMATION: sob. Dyspnea. COMPARISON: None available. FINDINGS: SUPPORT DEVICES: None. HEART / MEDIASTINUM: No significant abnormality. LUNGS / PLEURA: Small right pleural effusion. Patchy bibasilar airspace density. Signer Name: Cj Cardona MD Signed: 06/18/2019 7:21 PM Workstation Name: [id number]
[2019-06-18 19:28] LABS: Hematocrit 33.6 % (30.3-42.9); Hemoglobin 11.5 gm/dl (10.1-14.3); Mean Corpuscular HGB Conc 34 % (30-34); Mean Corpuscular Volume 105 fl (79-97); Platelet Count 114 K/mm3 (140-440); Red Cell Distribution Width 12.6 % (13.2-15.2)
[2019-06-18] MEDS ORDERED: cefTRIAXone/NS 1 GM/50 ML 1 GM/50 ML BAG IV ONE (19:34)
[2019-06-18] MEDS ORDERED: AZITHROMYCIN 250 MG TAB PO ONE (19:34)
[2019-06-18] MEDS ORDERED: ALBUTEROL 2.5 MG/3 ML NEBU IH ONE (19:36)
[2019-06-18 19:41] LABS: Bilirubin,Urine NEG (Negative); Blood,Urine SM (Negative); Color,Urine Yellow (Yellow); Mucus,Urine FEW /HPF; Urobilinogen,Urine < 2.0 mg/dL (<2.0)
[2019-06-18 19:50] LABS: Albumin 3.8 g/dL (3.9-5)
[2019-06-18] MEDS ORDERED: FUROSEMIDE 40 MG/4 ML INJ IV ONE (19:51)
[2019-06-18 19:54] LABS: INR 0.99 (0.87-1.13)
[2019-06-18 19:55] LABS: Partial Thromboplastin Time 34.1 Sec. (24.2-36.6)
[2019-06-18] MEDS ORDERED: ALBUTEROL 2.5 MG/3 ML NEBU IH PRN (20:48)
[2019-06-18] MEDS ORDERED: ACETAMINOPHEN 325 MG TAB PO PRN (20:48)
[2019-06-18] MEDS ORDERED: ONDANSETRON 4 MG/2 ML INJ IV PRN (20:48)
[2019-06-18] MEDS ORDERED: MECLIZINE 25 MG TAB PO PRN (20:52)
[2019-06-18] MEDS ORDERED: POTASSIUM CHLORIDE ER 20 MEQ TAB PO ONE ×2 (21:03→22:24)
[2019-06-18] MEDS ORDERED: carvediloL 3.125 MG TAB PO SCH (22:00)
[2019-06-18] MEDS ORDERED: LISINOPRIL 40 MG TAB PO SCH (22:00)
[2019-06-18] MEDS ORDERED: DULoxetine 30 MG CAP PO SCH (22:00)
[2019-06-18] MEDS ORDERED: MIRTAZAPINE 30 MG TAB PO SCH (22:00)
[2019-06-18] MEDS ORDERED: DOCUSATE SODIUM 100 MG CAP PO SCH (22:00)
[2019-06-18] MEDS ORDERED: LISINOPRIL 20 MG TAB ONE (22:26)
[2019-06-18] MEDS ORDERED: carvediloL 3.125 MG TAB ONE (22:26)
[2019-06-18] MEDS ORDERED: MIRTAZAPINE 30 MG TAB ONE (22:26)
[2019-06-18] MEDS ORDERED: DOCUSATE SODIUM 100 MG CAP ONE (22:26)
[2019-06-18] MEDS ORDERED: DULoxetine 30 MG CAP ONE (22:27)
--- NOTE | 2019-06-18 22:31 | History and Physical Report ---
<JULIETA GARCIA - Last Filed: 06/18/19 22:45> History of Present Illness Date of examination: 06/18/19 Date of admission: 06/18/2019 Chief complaint: weakness, SOB History of present illness: 79-year-old female who is a current resident of [facility] with history of hypertension, CVA with left-sided residual weakness, ovarian cancer, LAMAR, and hypothyroidism who presents to [facility] ED via EMS with complaints of generalized weakness and SOB. Pt is a poor historian and unbale to provide history. History is taken from medical records. Review of medical records shows that pt was admitted to [facility] in May and treated for abnormal cardiac enzymes, rhabdomyolysis, acute encephalopathy, and acute kidney injury. During her admission patient became combative/aggressive at times. Once discharge patient was admitted to the [facility] psych unit for approximately 1 week before being discharged to hospice. Past History Past Medical History: arthritis, cancer (ovarian), hypertension, hypothyroidism, stroke (sided residual weakness), other (LAMAR, debility) Past Surgical History: Other (EXCISION OF ANNA. BREAST CYSTS IN THE S) Social history: other (resident of [facility]) Family history: no significant family history Medications and Allergies Allergies Allergy/AdvReac Type Severity Reaction Status Date / Time amoxicillin [Amoxicillin] Allergy Rash Verified 11/22/15 06:47 Penicillins Allergy Rash Verified 11/22/15 06:47 Sulfa (Sulfonamide Allergy Rash Verified 11/22/15 06:35 Antibiotics) Home Medications Medication Instructions Recorded Confirmed Last Taken Type Levothyroxine [Synthroid] 100 mcg PO QAM 11/14/15 05/18/19 11/22/15 03:00 History Lisinopril [Zestril TAB] 40 mg PO BID 11/14/15 05/18/19 11/22/15 03:00 History Carvedilol [Coreg] 3.125 mg PO BID 01/31/18 05/18/19 Unknown History Donepezil HCl 5 mg PO DAILY 01/31/18 05/18/19 Unknown History ISOSORBIDE MONOnitrate [Imdur ER] 60 mg PO QDAY 01/31/18 05/18/19 Unknown History Niraparib Tosylate [Zejula] 100 mg PO DAILY 01/31/18 05/18/19 Unknown History Meclizine [Antivert] 25 mg PO TID PRN #20 tablet 02/10/18 05/18/19 Unknown Rx Acetaminophen [Tylenol Extra 500 mg PO QID PRN #15 tablet 02/12/18 05/18/19 Unknown Rx Strength] HYDROcodone/APAP 5-325 [[place] 1 each PO Q6HR PRN #14 tablet 10/02/18 05/18/19 Unknown Rx 5-325 mg TAB] DULoxetine [Cymbalta] 30 mg PO BID #60 capsule 05/25/19 Unknown Rx Mirtazapine [Remeron 30mg TAB] 30 mg PO QHS #30 05/25/19 Unknown Rx Ondansetron [Zofran ODT TAB] 4 mg PO Q8HR PRN #14 tab.rapdis 05/25/19 Unknown Rx Active Meds: Active Medications Acetaminophen (Tylenol) 650 mg PO Q4H PRN PRN Reason: Pain MILD(1-3)/Fever >100.5/BEVERLY Albuterol (Proventil) 2.5 mg IH Q3HRT PRN PRN Reason: Shortness Of Breath Carvedilol (Coreg) 3.125 mg PO BID DARIAN Docusate Sodium (Colace) 100 mg PO BID DARIAN Donepezil HCl (Aricept) 5 mg PO DAILY DARIAN Duloxetine HCl (Cymbalta) 30 mg PO BID DARIAN Enoxaparin Sodium (Enoxaparin) 40 mg SUB-Q QDAY DARIAN Isosorbide Mononitrate (Imdur) 60 mg PO QDAY DARIAN Levothyroxine Sodium (Synthroid) 100 mcg PO QAM@0600 DARIAN Lisinopril (Zestril) 40 mg PO BID DARIAN Meclizine HCl (Antivert) 25 mg PO TID PRN PRN Reason: Vertigo Mirtazapine (Remeron) 30 mg PO QHS [facility] Miscellaneous Medication (Niraparib Tosylate [Zejula]) 100 mg PO DAILY DARIAN Ondansetron HCl (Zofran) 4 mg IV Q6H PRN PRN Reason: Nausea And Vomiting Sodium Chloride (Sodium Chloride Flush Syringe 10 Ml) 10 ml IV BID DARIAN Sodium Chloride (Sodium Chloride Flush Syringe 10 Ml) 10 ml IV PRN PRN PRN Reason: LINE FLUSH Review of Systems ROS unobtainable: due to mental status Exam - Physical Exam Narrative exam: Physical exam General appearance: Present: No apparent distress, resting but easily aroused, non-verbal, older adult female, - EENT Eyes: Present: PERRL, EOM intact ENT: hearing intact, normal dentition - Neck Neck: Present: supple, normal ROM - Respiratory Respiratory effort: Non-labored Respiratory: fine bibasilar crackles - Cardiovascular Heart rate: 94 (bpm) Rhythm: SR Heart Sounds: Present: S1 & S2. Absent: rub, click - Extremities Extremities: no ischemia, pulses intact, - Peripheral Assessment Peripheral Pulses: within normal limits - Abdominal General gastrointestinal: soft, non-tender, normal bowel sounds - Integumentary Integumentary: Present: warm, dry - Musculoskeletal Musculoskeletal: generalized weakness -Neurological Neurological: CN II-XII grossly intact - Psychiatric Psychiatric: cooperative - Constitutional Vitals: Temp Pulse Resp BP Pulse Ox 99.5 F 70 15 159/65 95 06/18/19 18:02 06/18/19 20:46 06/18/19 20:46 06/18/19 20:46 06/18/19 20:46 Results - Labs CBC & Chem 7: 06/18/19 18:50 06/18/19 18:50 Labs: Laboratory Last Values WBC 5.0 K/mm3 (4.5-11.0) 06/18/19 18:50 RBC 3.20 M/mm3 (3.65-5.03) L 06/18/19 18:50 Hgb 11.5 gm/dl (10.1-14.3) 06/18/19 18:50 Hct 33.6 % (30.3-42.9) 06/18/19 18:50 MCV 105 fl (79-97) H 06/18/19 18:50 MCH 36 pg (28-32) H 06/18/19 18:50 MCHC 34 % (30-34) 06/18/19 18:50 RDW 12.6 % (13.2-15.2) L 06/18/19 18:50 Plt Count 114 K/mm3 (140-440) L 06/18/19 18:50 PT 13.0 Sec. (12.2-14.9) 06/18/19 19:24 INR 0.99 (0.87-1.13) 06/18/19 19:24 APTT 34.1 Sec. (24.2-36.6) 06/18/19 19:24 Sodium 145 mmol/L (137-145) 06/18/19 18:50 Potassium 3.4 mmol/L (3.6-5.0) L 06/18/19 18:50 Chloride 106.2 mmol/L (98-107) 06/18/19 18:50 Carbon Dioxide 24 mmol/L (22-30) 06/18/19 18:50 Anion Gap 18 mmol/L 06/18/19 18:50 BUN 17 mg/dL (7-17) 06/18/19 18:50 Creatinine 1.0 mg/dL (0.7-1.2) 06/18/19 18:50 Estimated GFR 53 ml/min 06/18/19 18:50 BUN/Creatinine Ratio 17 % 06/18/19 18:50 Glucose 107 mg/dL (65-100) H 06/18/19 18:50 Lactic Acid 1.90 mmol/L (0.7-2.0) 06/18/19 19:47 Calcium 9.0 mg/dL (8.4-10.2) 06/18/19 18:50 Total Bilirubin 0.30 mg/dL (0.1-1.2) 06/18/19 18:50 AST 22 units/L (5-40) 06/18/19 18:50 ALT 8 units/L (7-56) 06/18/19 18:50 Alkaline Phosphatase 79 units/L (35-129) 06/18/19 18:50 Troponin T 0.020 ng/mL (0.00-0.029) 06/18/19 18:50 NT-Pro-B Natriuret Pep 2866 pg/mL (0-900) H 06/18/19 18:50 Total Protein 6.8 g/dL (6.3-8.2) 06/18/19 18:50 Albumin 3.8 g/dL (3.9-5) L 06/18/19 18:50 Albumin/Globulin Ratio 1.3 % 06/18/19 18:50 Urine Color Yellow (Yellow) 06/18/19 19:24 Urine Turbidity Slightly-cloudy (Clear) 06/18/19 19:24 Urine pH 5.0 (5.0-7.0) 06/18/19 19:24 Ur Specific [place] 1.020 (1.003-1.030) 06/18/19 19:24 Urine Protein 30 mg/dl mg/dL (Negative) 06/18/19 19:24 Urine Glucose (UA) Neg mg/dL (Negative) 06/18/19 19:24 Urine Ketones Neg mg/dL (Negative) 06/18/19 19:24 Urine Blood Sm (Negative) 06/18/19 19:24 Urine Nitrite Neg (Negative) 06/18/19 19:24 Urine Bilirubin Neg (Negative) 06/18/19 19:24 Urine Urobilinogen < 2.0 mg/dL (<2.0) 06/18/19 19:24 Ur Leukocyte Esterase Tr (Negative) 06/18/19 19:24 Urine WBC (Auto) 36.0 /HPF (0.0-6.0) H 06/18/19 19:24 Urine RBC (Auto) 3.0 /HPF (0.0-6.0) 06/18/19 19:24 U Epithel Cells (Auto) < 1.0 /HPF (0-13.0) 06/18/19 19:24 Urine Mucus Few /HPF 06/18/19 19:24 - Imaging and Cardiology Imaging and Cardiology: CXR: FINDINGS: SUPPORT DEVICES: None. HEART / MEDIASTINUM: No significant abnormality. LUNGS / PLEURA: Small right pleural effusion. Patchy bibasilar airspace density. Assessment and Plan Assessment and plan: 79-year-old female who is a current resident of [facility] with history of hypertension, CVA with left-sided residual weakness, ovarian cancer, LAMAR, and hypothyroidism who presents to [facility] ED via EMS with complaints of generalized weakness and SOB. Acute exacerbation of CHF -BNP elevated at 2866 -Ejection fraction 35-40% on echo -Diuresis with IV Lasix -Continue ASA and statin -Pacemaker in situ -Cardiology consulted Urinary Tract Infection -Urine WBC 36 -Urine culture pending -on IV rochepin -Continue supportive care HTN -Monitor BP -Resume home antihypertensive meds to optimize BP Hypokalemia -Potassium on admission 3.4 -Ordered potassium replacement -Continue to monitor replete prn Hx Dementia -Continue all antipsychotic meds DVT PPX -On Lovenox Advance Directives: No VTE prophylaxis?: Chemical Plan of care discussed with patient/family: Yes <VIDALRUPALIPEACE E - Last Filed: 06/19/19 05:59> History of Present Illness Date of admission: 06/18/19 20:48 Medications and Allergies Active Meds: Active Medications Albuterol (Proventil) 2.5 mg IH Q3HRT PRN PRN Reason: Shortness Of Breath Enoxaparin Sodium (Enoxaparin) 40 mg SUB-Q QDAY DARIAN Furosemide (Lasix) 20 mg IV 0600,1800 DARIAN Ceftriaxone Sodium (Rocephin/Ns 1 Gm/50 Ml) 1 gm in 50 mls @ 100 mls/hr IV Q24H DARIAN; Protocol Azithromycin 500 mg/ Sodium (Chloride) 250 mls @ 250 mls/hr IV Q24HR DARIAN; Protocol Ondansetron HCl (Zofran) 4 mg IV Q6H PRN PRN Reason: Nausea And Vomiting Sodium Chloride (Sodium Chloride Flush Syringe 10 Ml) 10 ml IV BID DARIAN Last Admin: 06/18/19 22:29 Dose: 10 ml Documented by: Sodium Chloride (Sodium Chloride Flush Syringe 10 Ml) 10 ml IV PRN PRN PRN Reason: LINE FLUSH Exam - Constitutional Vitals: Temp Pulse Resp BP Pulse Ox 97.9 F 70 12 114/56 98 06/19/19 03:56 06/19/19 03:56 06/19/19 03:56 06/19/19 03:56 06/19/19 03:56 Results - Labs CBC & Chem 7: 06/18/19 18:50 06/18/19 18:50 Labs: Laboratory Last Values WBC 5.0 K/mm3 (4.5-11.0) 06/18/19 18:50 RBC 3.20 M/mm3 (3.65-5.03) L 06/18/19 18:50 Hgb 11.5 gm/dl (10.1-14.3) 06/18/19 18:50 Hct 33.6 % (30.3-42.9) 06/18/19 18:50 MCV 105 fl (79-97) H 06/18/19 18:50 MCH 36 pg (28-32) H 06/18/19 18:50 MCHC 34 % (30-34) 06/18/19 18:50 RDW 12.6 % (13.2-15.2) L 06/18/19 18:50 Plt Count 114 K/mm3 (140-440) L 06/18/19 18:50 PT 13.0 Sec. (12.2-14.9) 06/18/19 19:24 INR 0.99 (0.87-1.13) 06/18/19 19:24 APTT 34.1 Sec. (24.2-36.6) 06/18/19 19:24 Sodium 145 mmol/L (137-145) 06/18/19 18:50 Potassium 3.4 mmol/L (3.6-5.0) L 06/18/19 18:50 Chloride 106.2 mmol/L (98-107) 06/18/19 18:50 Carbon Dioxide 24 mmol/L (22-30) 06/18/19 18:50 Anion Gap 18 mmol/L 06/18/19 18:50 BUN 17 mg/dL (7-17) 06/18/19 18:50 Creatinine 1.0 mg/dL (0.7-1.2) 06/18/19 18:50 Estimated GFR 53 ml/min 06/18/19 18:50 BUN/Creatinine Ratio 17 % 06/18/19 18:50 Glucose 107 mg/dL (65-100) H 06/18/19 18:50 Lactic Acid 1.90 mmol/L (0.7-2.0) 06/18/19 19:47 Calcium 9.0 mg/dL (8.4-10.2) 06/18/19 18:50 Total Bilirubin 0.30 mg/dL (0.1-1.2) 06/18/19 18:50 AST 22 units/L (5-40) 06/18/19 18:50 ALT 8 units/L (7-56) 06/18/19 18:50 Alkaline Phosphatase 79 units/L (35-129) 06/18/19 18:50 Troponin T 0.020 ng/mL (0.00-0.029) 06/18/19 18:50 NT-Pro-B Natriuret Pep 2866 pg/mL (0-900) H 06/18/19 18:50 Total Protein 6.8 g/dL (6.3-8.2) 06/18/19 18:50 Albumin 3.8 g/dL (3.9-5) L 06/18/19 18:50 Albumin/Globulin Ratio 1.3 % 06/18/19 18:50 Urine Color Yellow (Yellow) 06/18/19 19:24 Urine Turbidity Slightly-cloudy (Clear) 06/18/19 19:24 Urine pH 5.0 (5.0-7.0) 06/18/19 19:24 Ur Specific [place] 1.020 (1.003-1.030) 06/18/19 19:24 Urine Protein 30 mg/dl mg/dL (Negative) 06/18/19 19:24 Urine Glucose (UA) Neg mg/dL (Negative) 06/18/19 19:24 Urine Ketones Neg mg/dL (Negative) 06/18/19 19:24 Urine Blood Sm (Negative) 06/18/19 19:24 Urine Nitrite Neg (Negative) 06/18/19 19:24 Urine Bilirubin Neg (Negative) 06/18/19 19:24 Urine Urobilinogen < 2.0 mg/dL (<2.0) 06/18/19 19:24 Ur Leukocyte Esterase Tr (Negative) 06/18/19 19:24 Urine WBC (Auto) 36.0 /HPF (0.0-6.0) H 06/18/19 19:24 Urine RBC (Auto) 3.0 /HPF (0.0-6.0) 06/18/19 19:24 U Epithel Cells (Auto) < 1.0 /HPF (0-13.0) 06/18/19 19:24 Urine Mucus Few /HPF 06/18/19 19:24 Assessment and Plan Assessment and plan: 79 year old woman with hypertension, hypothyroidism, stroke, dementia was brought to the ER for evualation, she is unble to give a history. She does find to have pneumonia, possible CHF and urinary infection. Did IV Lasix, Rocephin, add azithromycin. Patient has been coughing after a bedside swallow eval, hold all oral medications until speech evaluation. Hold lovenox, patient will thrombocytopenic
[2019-06-19] MEDS ORDERED: LEVOTHYROXINE 100 MCG TAB PO SCH (06:00)
[2019-06-19] MEDS: FUROSEMIDE 20 MG/2 ML INJ IV SCH ×2 (06:14→17:31)
[2019-06-19 06:36] LABS: Hemoglobin 11.6 gm/dl (10.1-14.3); Mean Corpuscular HGB Conc 34 % (30-34); Mean Corpuscular Volume 106 fl (79-97); Platelet Count 128 K/mm3 (140-440); Red Blood Count 3.23 M/mm3 (3.65-5.03); Red Cell Distribution Width 12.7 % (13.2-15.2)
[2019-06-19 06:49] LABS: Calcium 9.1 mg/dL (8.4-10.2)
[2019-06-19 08:18] LABS: Anisocytosis Few; Basophils % (Manual) 0 % (0.0-1.8); Platelet Estimate Consistent w Auto; Total Cells Counted 100
[2019-06-19] MEDS ORDERED: ENOXAPARIN 40 MG/0.4 ML INJ SUB-Q SCH (10:00)
[2019-06-19] MEDS ORDERED: DONEPEZIL 5 MG TAB PO SCH (10:00)
[2019-06-19] MEDS ORDERED: NIRAPARIB TOSYLATE 100 MG PO SCH (10:00)
[2019-06-19] MEDS: AZITHROMYCIN 500 MG in SODIUM CHLORIDE 0.9% 250ML 250 ML IV SCH (10:24)
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
--- NOTE | 2019-06-19 14:45 | Progress Note ---
Assessment and Plan Assessment and plan: 79-year-old female who is a current resident of [facility] with history of hypertension, CVA with left-sided residual weakness, ovarian cancer, LAMAR, and hypothyroidism who presents to [facility] ED via EMS with complaints of generalized weakness and SOB. Acute exacerbation of CHF, ef 35 [place] heart input appreciated, cont iv diuretics, optimize meds -Pacemaker in situ Dysphasia Speech therapy input appreciated. Plan for MBS Urinary Tract Infection ruled out, ucx neg, dc abx HTN cont bp meds Hypokalemia k supplement as needed Hx Dementia w behavioral disturbance -Continue all antipsychotic meds DVT PPX -On Lovenox History Interval history: Review of systems Constitutional: No fevers, no malaise, no joint pains CVS: No chest pain, complaining of orthopnea GI: No abdominal pain, no diarrhea, no vomiting, no constipation Respiratory: , no wheezing, no coughing Hospitalist Physical - Physical exam Narrative exam: General.: Appears well, no distress, nontoxic HEENT: Moist mucous membranes, extraocular muscles intact, no lymphadenopathy Neck: supple Cardiac: S1-S2 heard Lungs: Bibasilar crackles Abdomen: soft , nontender, nondistended, bowel sounds positive Extremities: no edema clubbing or cyanosis Skin: no rash or lesions Neurologic: no gross focal deficits, awake alert oriented x3. But poor judgment, and poor insight. When asked questions to answer sometimes are nonsensical. Which is apparently her baseline Psych: calm, and cooperative - Constitutional Vitals: Temp Pulse Resp BP Pulse Ox 97.5 F L 85 18 101/57 100 06/19/19 11:39 06/19/19 11:39 06/19/19 11:39 06/19/19 11:39 06/19/19 14:23 General appearance: Present: no acute distress, other (confused) Results - Labs CBC & Chem 7: 06/19/19 05:44 06/20/19 05:39 Labs: Laboratory Last Values WBC 6.5 K/mm3 (4.5-11.0) 06/19/19 05:44 RBC 3.23 M/mm3 (3.65-5.03) L 06/19/19 05:44 Hgb 11.6 gm/dl (10.1-14.3) 06/19/19 05:44 Hct 34.0 % (30.3-42.9) 06/19/19 05:44 MCV 106 fl (79-97) H 06/19/19 05:44 MCH 36 pg (28-32) H 06/19/19 05:44 MCHC 34 % (30-34) 06/19/19 05:44 RDW 12.7 % (13.2-15.2) L 06/19/19 05:44 Plt Count 128 K/mm3 (140-440) L 06/19/19 05:44 [place] % (Auto) Development Administrator 06/19/19 05:44 Add Manual Diff Complete 06/19/19 05:44 Total Counted 100 06/19/19 05:44 Seg Neuts % (Manual) 83.0 % (40.0-70.0) H 06/19/19 05:44 Band Neutrophils % 0 % 06/19/19 05:44 Lymphocytes % (Manual) 9.0 % (13.4-35.0) L 06/19/19 05:44 Reactive Lymphs % (Man) 0 % 06/19/19 05:44 Monocytes % (Manual) 7.0 % (0.0-7.3) 06/19/19 05:44 Eosinophils % (Manual) 1.0 % (0.0-4.3) 06/19/19 05:44 Basophils % (Manual) 0 % (0.0-1.8) 06/19/19 05:44 Metamyelocytes % 0 % 06/19/19 05:44 Myelocytes % 0 % 06/19/19 05:44 Promyelocytes % 0 % 06/19/19 05:44 Blast Cells % 0 % 06/19/19 05:44 Nucleated RBC % Not Reportable 06/19/19 05:44 Seg Neutrophils # Man 5.4 K/mm3 (1.8-7.7) 06/19/19 05:44 Band Neutrophils # 0.0 K/mm3 06/19/19 05:44 Lymphocytes # (Manual) 0.6 K/mm3 (1.2-5.4) L 06/19/19 05:44 Abs React Lymphs (Man) 0.0 K/mm3 06/19/19 05:44 Monocytes # (Manual) 0.5 K/mm3 (0.0-0.8) 06/19/19 05:44 Eosinophils # (Manual) 0.1 K/mm3 (0.0-0.4) 06/19/19 05:44 Basophils # (Manual) 0.0 K/mm3 (0.0-0.1) 06/19/19 05:44 Metamyelocytes # 0.0 K/mm3 06/19/19 05:44 Myelocytes # 0.0 K/mm3 06/19/19 05:44 Promyelocytes # 0.0 K/mm3 06/19/19 05:44 Blast Cells # 0.0 K/mm3 06/19/19 05:44 WBC Morphology Not Reportable 06/19/19 05:44 Hypersegmented Neuts Not Reportable 06/19/19 05:44 Hyposegmented Neuts Not Reportable 06/19/19 05:44 Hypogranular Neuts Not Reportable 06/19/19 05:44 Smudge Cells Not Reportable 06/19/19 05:44 Toxic Granulation Not Reportable 06/19/19 05:44 Toxic Vacuolation Not Reportable 06/19/19 05:44 Dohle Bodies Not Reportable 06/19/19 05:44 Pelger-Huet Anomaly Not Reportable 06/19/19 05:44 Maranda Rods Not Reportable 06/19/19 05:44 Platelet Estimate Consistent w auto 06/19/19 05:44 Clumped Platelets Not Reportable 06/19/19 05:44 Plt Clumps, EDTA Not Reportable 06/19/19 05:44 Large Platelets Not Reportable 06/19/19 05:44 Giant Platelets Not Reportable 06/19/19 05:44 Platelet Satelliting Not Reportable 06/19/19 05:44 Plt Morphology Comment Not Reportable 06/19/19 05:44 RBC Morphology Not Reportable 06/19/19 05:44 Dimorphic RBCs Not Reportable 06/19/19 05:44 Polychromasia Not Reportable 06/19/19 05:44 Hypochromasia Not Reportable 06/19/19 05:44 Poikilocytosis Not Reportable 06/19/19 05:44 Anisocytosis Few 06/19/19 05:44 Microcytosis Not Reportable 06/19/19 05:44 Macrocytosis Not Reportable 06/19/19 05:44 Spherocytes Not Reportable 06/19/19 05:44 Pappenheimer Bodies Not Reportable 06/19/19 05:44 Sickle Cells Not Reportable 06/19/19 05:44 Target Cells Not Reportable 06/19/19 05:44 Tear Drop Cells Not Reportable 06/19/19 05:44 Ovalocytes Not Reportable 06/19/19 05:44 Helmet Cells Not Reportable 06/19/19 05:44 [place] Bodies Not Reportable 06/19/19 05:44 [place] Rings Not Reportable 06/19/19 05:44 Mara Cells Not Reportable 06/19/19 05:44 Bite Cells Not Reportable 06/19/19 05:44 Crenated Cell Not Reportable 06/19/19 05:44 Elliptocytes Not Reportable 06/19/19 05:44 Acanthocytes (Spur) Not Reportable 06/19/19 05:44 Rouleaux Not Reportable 06/19/19 05:44 Hemoglobin C Crystals Not Reportable 06/19/19 05:44 Schistocytes Not Reportable 06/19/19 05:44 Malaria parasites Not Reportable 06/19/19 05:44 Harsha Bodies Not Reportable 06/19/19 05:44 Hem Pathologist Commnt No 06/19/19 05:44 PT 13.0 Sec. (12.2-14.9) 06/18/19 19:24 INR 0.99 (0.87-1.13) 06/18/19 19:24 APTT 34.1 Sec. (24.2-36.6) 06/18/19 19:24 Sodium 143 mmol/L (137-145) 06/19/19 05:44 Potassium 3.9 mmol/L (3.6-5.0) 06/19/19 05:44 Chloride 105.8 mmol/L (98-107) 06/19/19 05:44 Carbon Dioxide 24 mmol/L (22-30) 06/19/19 05:44 Anion Gap 17 mmol/L 06/19/19 05:44 BUN 19 mg/dL (7-17) H 06/19/19 05:44 Creatinine 1.1 mg/dL (0.7-1.2) 06/19/19 05:44 Estimated GFR 48 ml/min 06/19/19 05:44 BUN/Creatinine Ratio 17 % 06/19/19 05:44 Glucose 108 mg/dL (65-100) H 06/19/19 05:44 Lactic Acid 1.90 mmol/L (0.7-2.0) 06/18/19 19:47 Calcium 9.1 mg/dL (8.4-10.2) 06/19/19 05:44 Total Bilirubin 0.30 mg/dL (0.1-1.2) 06/18/19 18:50 AST 22 units/L (5-40) 06/18/19 18:50 ALT 8 units/L (7-56) 06/18/19 18:50 Alkaline Phosphatase 79 units/L (35-129) 06/18/19 18:50 Troponin T 0.020 ng/mL (0.00-0.029) 06/18/19 18:50 NT-Pro-B Natriuret Pep 2866 pg/mL (0-900) H 06/18/19 18:50 Total Protein 6.8 g/dL (6.3-8.2) 06/18/19 18:50 Albumin 3.8 g/dL (3.9-5) L 06/18/19 18:50 Albumin/Globulin Ratio 1.3 % 06/18/19 18:50 Urine Color Yellow (Yellow) 06/18/19 19:24 Urine Turbidity Slightly-cloudy (Clear) 06/18/19 19:24 Urine pH 5.0 (5.0-7.0) 06/18/19 19:24 Ur Specific [place] 1.020 (1.003-1.030) 06/18/19 19:24 Urine Protein 30 mg/dl mg/dL (Negative) 06/18/19 19:24 Urine Glucose (UA) Neg mg/dL (Negative) 06/18/19 19:24 Urine Ketones Neg mg/dL (Negative) 06/18/19 19:24 Urine Blood Sm (Negative) 06/18/19 19:24 Urine Nitrite Neg (Negative) 06/18/19 19:24 Urine Bilirubin Neg (Negative) 06/18/19 19:24 Urine Urobilinogen < 2.0 mg/dL (<2.0) 06/18/19 19:24 Ur Leukocyte Esterase Tr (Negative) 06/18/19 19:24 Urine WBC (Auto) 36.0 /HPF (0.0-6.0) H 06/18/19 19:24 Urine RBC (Auto) 3.0 /HPF (0.0-6.0) 06/18/19 19:24 U Epithel Cells (Auto) < 1.0 /HPF (0-13.0) 06/18/19 19:24 Urine Mucus Few /HPF 06/18/19 19:24 Active Medications - Current Medications Current Medications: Generic Name Dose Route Start Last Admin Trade Name Freq PRN Reason Stop Dose Admin Albuterol 2.5 mg 06/18/19 20:48 Proventil IH Q3HRT PRN Shortness Of Breath Furosemide 20 mg 06/19/19 06:00 06/19/19 06:14 Lasix IV 20 mg 0600,1800 DARIAN Administration Ceftriaxone Sodium 1 gm in 50 mls @ 100 mls/hr 06/19/19 20:00 Rocephin/Ns 1 Gm/50 Ml IV Q24H DARIAN Protocol Azithromycin 500 mg/ Sodium 250 mls @ 250 mls/hr 06/19/19 10:00 06/19/19 10:24 Chloride IV 250 mls/hr Q24HR DARIAN Administration Protocol Ondansetron HCl 4 mg 06/18/19 20:48 Zofran IV Q6H PRN Nausea And Vomiting Sodium Chloride 10 ml 06/18/19 22:00 06/19/19 10:24 Sodium Chloride Flush Syringe 10 Ml IV 10 ml BID DARIAN Administration Sodium Chloride 10 ml 06/18/19 20:48 Sodium Chloride Flush Syringe 10 Ml IV PRN PRN LINE FLUSH
[2019-06-19] MEDS ORDERED: cefTRIAXone/NS 1 GM/50 ML 1 GM/50 ML BAG IV SCH (20:00)
[2019-06-20] MEDS: FUROSEMIDE 20 MG/2 ML INJ IV SCH (06:12)
--- NOTE | 2019-06-20 09:10 | Vascular Lab Report ---
. DUPLEX DOPPLER LOWER EXTREMITY VEINS, BILATERAL INDICATION: Bilateral lower extremity edema. TECHNIQUE: Duplex doppler imaging was performed through the veins of both lower extremities using ve nous compression and other maneuvers. COMPARISON: No relevant prior imaging study available. FINDINGS: Right Common femoral vein: Negative. Right Superficial femoral vein: Negative. Right Popliteal vein: Negative. Right Calf veins: Negative. Left Common femoral vein: Negative. Left Superficial femoral vein: Negative. Left Popliteal vein: Negative. Left Calf veins: Negative. Additional findings: Popliteal cyst on the right side measures 1.9 x 1.6 x 2.3 cm.. IMPRESSION: No sonographic evidence for DVT in either lower extremity. Right popliteal cyst. Signer Name: Sylvain Crisostomo Jr, MD Signed: 06/20/2019 9:06 AM Workstation Name: [id number]
[2019-06-20] MEDS: AZITHROMYCIN 500 MG in SODIUM CHLORIDE 0.9% 250ML 250 ML IV SCH (10:06)
[2019-06-20] MEDS: POTASSIUM CHLORIDE ER 20 MEQ TAB PO SCH ×2 (10:07→11:51)
--- NOTE | 2019-06-20 10:31 | Progress Note ---
Assessment and Plan Pt appears to be nearing/at euvolemia. Serum Cr increased. D/c IV lasix and f/u BMP in AM. Cont coreg and lisinopril. Pt pending swallow eval for possible dysphagia. The patient has been seen in conjunction with Dr. Toussaint who agrees with the assessment and plan of care. - Patient Problems (1) Acute HFrEF (heart failure with reduced ejection fraction) Current Visit: Yes Status: Acute (2) Nonischemic cardiomyopathy Current Visit: Yes Status: Chronic (3) Altered mental status Current Visit: Yes Status: Acute Qualifiers: Altered mental status type: unspecified Qualified Code(s): R41.82 - Altered mental status, unspecified (4) Psychiatric disorder Current Visit: Yes Status: Chronic (5) Atrial fibrillation and flutter Current Visit: Yes Status: Chronic (6) Cardiac pacemaker in situ Current Visit: Yes Status: Chronic (7) History of CVA (cerebrovascular accident) Current Visit: Yes Status: Chronic (8) History of intracranial hemorrhage Current Visit: Yes Status: Chronic (9) CKD (chronic kidney disease) Current Visit: Yes Status: Chronic (10) Hypothyroidism (acquired) Current Visit: Yes Status: Chronic (11) History of ovarian cancer Current Visit: Yes Status: Chronic (12) Thrombocytopenia Current Visit: Yes Status: Acute Subjective Date of service: 06/20/19 Principal diagnosis: AMS Interval history: pt resting in bed, no apparent distress, remains confused with tangential speech. paced on telemetry. Objective Last Vital Signs Temp 98.2 F 06/20/19 07:30 Pulse 73 06/20/19 06:11 Resp 18 06/20/19 08:19 BP 130/60 06/20/19 07:30 Pulse Ox 98 06/20/19 08:19 - Physical Examination General: No Apparent Distress, Other (confused) HEENT: Positive: PERRL, Normocephaly, Mucus Membranes Moist Neck: Positive: neck supple, trachea midline Cardiac: Positive: Reg Rate and Rhythm, S1/S2 Lungs: Positive: Decreased Breath Sounds Neuro: Positive: Grossly Intact Abdomen: Negative: Tender Skin: Negative: Rash Musculoskeletal: No Pain Extremities: Absent: edema - Labs and Meds Comprehensive Metabolic Panel 06/20/19 Range/Units 05:39 Sodium 145 (137-145) mmol/L Potassium 4.0 (3.6-5.0) mmol/L Chloride 105.0 (98-107) mmol/L Carbon Dioxide 25 (22-30) mmol/L BUN 25 H (7-17) mg/dL Creatinine 1.5 H (0.7-1.2) mg/dL Glucose 76 (65-100) mg/dL Calcium 9.0 (8.4-10.2) mg/dL - Imaging and Cardiology EKG: report reviewed, image reviewed Echo: report reviewed (05/2019 showed EF 35-40%, mod LVH, impaired relaxation, LA mildly dilated, trivial pericardial effusion, pacemaker wire in RA and RV, mild to mod MR, mild to mod TR, RVSP 26mmHg. ) Cardiac cath: report reviewed (03/2011 showed mild luminal irregularities in OM- 1, other franco normal coronaries, EF 50%. ) Pacemaker: ventricular pacing w/capt
--- NOTE | 2019-06-20 11:38 | Progress Note ---
Assessment and Plan Assessment and plan: 79-year-old female who is a current resident of [facility] with history of hypertension, CVA with left-sided residual weakness, ovarian cancer, LAMAR, and hypothyroidism who presents to [facility] ED via EMS with complaints of generalized weakness and SOB. Acute exacerbation of CHF, ef 35 southern heart input appreciated, cont iv diuretics, optimize meds -Pacemaker in situ Acute kidney injury likely due to vasomotor nephropathy, Hold diuretics, nephrology consult Dysphasia Improved. Discussed with speech therapist, resume diet now Urinary Tract Infection ruled out, ucx neg, dc abx HTN cont bp meds Hypokalemia k supplement as needed Hx Dementia w behavioral disturbance -Continue all antipsychotic meds DVT PPX -On Lovenox History Interval history: Review of systems Constitutional: No fevers, no malaise, no joint pains CVS: No chest pain, complaining of orthopnea GI: No abdominal pain, no diarrhea, no vomiting, no constipation Respiratory: , no wheezing, no coughing Hospitalist Physical - Physical exam Narrative exam: General.: Appears well, no distress, nontoxic HEENT: Moist mucous membranes, extraocular muscles intact, no lymphadenopathy Neck: supple Cardiac: S1-S2 heard Lungs: Bibasilar crackles Abdomen: soft , nontender, nondistended, bowel sounds positive Extremities: no edema clubbing or cyanosis Skin: no rash or lesions Neurologic: no gross focal deficits, awake alert oriented x3. But poor judgment, and poor insight. When asked questions to answer sometimes are nonsensical. Which is apparently her baseline Psych: calm, and cooperative - Constitutional Vitals: Temp Pulse Resp BP Pulse Ox 98.2 F 73 18 130/60 98 06/20/19 07:30 06/20/19 06:11 06/20/19 08:19 06/20/19 07:30 06/20/19 08:19 General appearance: Present: no acute distress, other (confused) Results - Labs CBC & Chem 7: 06/19/19 05:44 06/20/19 05:39 Labs: Laboratory Last Values WBC 6.5 K/mm3 (4.5-11.0) 06/19/19 05:44 RBC 3.23 M/mm3 (3.65-5.03) L 06/19/19 05:44 Hgb 11.6 gm/dl (10.1-14.3) 06/19/19 05:44 Hct 34.0 % (30.3-42.9) 06/19/19 05:44 MCV 106 fl (79-97) H 06/19/19 05:44 MCH 36 pg (28-32) H 06/19/19 05:44 MCHC 34 % (30-34) 06/19/19 05:44 RDW 12.7 % (13.2-15.2) L 06/19/19 05:44 Plt Count 128 K/mm3 (140-440) L 06/19/19 05:44 [place] % (Auto) [employer] Supervisor 06/19/19 05:44 Add Manual Diff Complete 06/19/19 05:44 Total Counted 100 06/19/19 05:44 Seg Neuts % (Manual) 83.0 % (40.0-70.0) H 06/19/19 05:44 Band Neutrophils % 0 % 06/19/19 05:44 Lymphocytes % (Manual) 9.0 % (13.4-35.0) L 06/19/19 05:44 Reactive Lymphs % (Man) 0 % 06/19/19 05:44 Monocytes % (Manual) 7.0 % (0.0-7.3) 06/19/19 05:44 Eosinophils % (Manual) 1.0 % (0.0-4.3) 06/19/19 05:44 Basophils % (Manual) 0 % (0.0-1.8) 06/19/19 05:44 Metamyelocytes % 0 % 06/19/19 05:44 Myelocytes % 0 % 06/19/19 05:44 Promyelocytes % 0 % 06/19/19 05:44 Blast Cells % 0 % 06/19/19 05:44 Nucleated RBC % Not Reportable 06/19/19 05:44 Seg Neutrophils # Man 5.4 K/mm3 (1.8-7.7) 06/19/19 05:44 Band Neutrophils # 0.0 K/mm3 06/19/19 05:44 Lymphocytes # (Manual) 0.6 K/mm3 (1.2-5.4) L 06/19/19 05:44 Abs React Lymphs (Man) 0.0 K/mm3 06/19/19 05:44 Monocytes # (Manual) 0.5 K/mm3 (0.0-0.8) 06/19/19 05:44 Eosinophils # (Manual) 0.1 K/mm3 (0.0-0.4) 06/19/19 05:44 Basophils # (Manual) 0.0 K/mm3 (0.0-0.1) 06/19/19 05:44 Metamyelocytes # 0.0 K/mm3 06/19/19 05:44 Myelocytes # 0.0 K/mm3 06/19/19 05:44 Promyelocytes # 0.0 K/mm3 06/19/19 05:44 Blast Cells # 0.0 K/mm3 06/19/19 05:44 WBC Morphology Not Reportable 06/19/19 05:44 Hypersegmented Neuts Not Reportable 06/19/19 05:44 Hyposegmented Neuts Not Reportable 06/19/19 05:44 Hypogranular Neuts Not Reportable 06/19/19 05:44 Smudge Cells Not Reportable 06/19/19 05:44 Toxic Granulation Not Reportable 06/19/19 05:44 Toxic Vacuolation Not Reportable 06/19/19 05:44 Dohle Bodies Not Reportable 06/19/19 05:44 Pelger-Huet Anomaly Not Reportable 06/19/19 05:44 Maranda Rods Not Reportable 06/19/19 05:44 Platelet Estimate Consistent w auto 06/19/19 05:44 Clumped Platelets Not Reportable 06/19/19 05:44 Plt Clumps, EDTA Not Reportable 06/19/19 05:44 Large Platelets Not Reportable 06/19/19 05:44 Giant Platelets Not Reportable 06/19/19 05:44 Platelet Satelliting Not Reportable 06/19/19 05:44 Plt Morphology Comment Not Reportable 06/19/19 05:44 RBC Morphology Not Reportable 06/19/19 05:44 Dimorphic RBCs Not Reportable 06/19/19 05:44 Polychromasia Not Reportable 06/19/19 05:44 Hypochromasia Not Reportable 06/19/19 05:44 Poikilocytosis Not Reportable 06/19/19 05:44 Anisocytosis Few 06/19/19 05:44 Microcytosis Not Reportable 06/19/19 05:44 Macrocytosis Not Reportable 06/19/19 05:44 Spherocytes Not Reportable 06/19/19 05:44 Pappenheimer Bodies Not Reportable 06/19/19 05:44 Sickle Cells Not Reportable 06/19/19 05:44 Target Cells Not Reportable 06/19/19 05:44 Tear Drop Cells Not Reportable 06/19/19 05:44 Ovalocytes Not Reportable 06/19/19 05:44 Helmet Cells Not Reportable 06/19/19 05:44 [place]-Iron Post Bodies Not Reportable 06/19/19 05:44 [place] Rings Not Reportable 06/19/19 05:44 Mara Cells Not Reportable 06/19/19 05:44 Bite Cells Not Reportable 06/19/19 05:44 Crenated Cell Not Reportable 06/19/19 05:44 Elliptocytes Not Reportable 06/19/19 05:44 Acanthocytes (Spur) Not Reportable 06/19/19 05:44 Rouleaux Not Reportable 06/19/19 05:44 Hemoglobin C Crystals Not Reportable 06/19/19 05:44 Schistocytes Not Reportable 06/19/19 05:44 Malaria parasites Not Reportable 06/19/19 05:44 Harsha Bodies Not Reportable 06/19/19 05:44 Hem Pathologist Commnt No 06/19/19 05:44 PT 13.0 Sec. (12.2-14.9) 06/18/19 19:24 INR 0.99 (0.87-1.13) 06/18/19 19:24 APTT 34.1 Sec. (24.2-36.6) 06/18/19 19:24 Sodium 145 mmol/L (137-145) 06/20/19 05:39 Potassium 4.0 mmol/L (3.6-5.0) 06/20/19 05:39 Chloride 105.0 mmol/L (98-107) 06/20/19 05:39 Carbon Dioxide 25 mmol/L (22-30) 06/20/19 05:39 Anion Gap 19 mmol/L 06/20/19 05:39 BUN 25 mg/dL (7-17) H 06/20/19 05:39 Creatinine 1.5 mg/dL (0.7-1.2) H 06/20/19 05:39 Estimated GFR 33 ml/min 06/20/19 05:39 BUN/Creatinine Ratio 17 % 06/20/19 05:39 Glucose 76 mg/dL (65-100) 06/20/19 05:39 Lactic Acid 1.90 mmol/L (0.7-2.0) 06/18/19 19:47 Calcium 9.0 mg/dL (8.4-10.2) 06/20/19 05:39 Total Bilirubin 0.30 mg/dL (0.1-1.2) 06/18/19 18:50 AST 22 units/L (5-40) 06/18/19 18:50 ALT 8 units/L (7-56) 06/18/19 18:50 Alkaline Phosphatase 79 units/L (35-129) 06/18/19 18:50 Troponin T 0.020 ng/mL (0.00-0.029) 06/18/19 18:50 NT-Pro-B Natriuret Pep 2866 pg/mL (0-900) H 06/18/19 18:50 Total Protein 6.8 g/dL (6.3-8.2) 06/18/19 18:50 Albumin 3.8 g/dL (3.9-5) L 06/18/19 18:50 Albumin/Globulin Ratio 1.3 % 06/18/19 18:50 Urine Color Yellow (Yellow) 06/18/19 19:24 Urine Turbidity Slightly-cloudy (Clear) 06/18/19 19:24 Urine pH 5.0 (5.0-7.0) 06/18/19 19:24 Ur Specific [place] 1.020 (1.003-1.030) 06/18/19 19:24 Urine Protein 30 mg/dl mg/dL (Negative) 06/18/19 19:24 Urine Glucose (UA) Neg mg/dL (Negative) 06/18/19 19:24 Urine Ketones Neg mg/dL (Negative) 06/18/19 19:24 Urine Blood Sm (Negative) 06/18/19 19:24 Urine Nitrite Neg (Negative) 06/18/19 19:24 Urine Bilirubin Neg (Negative) 06/18/19 19:24 Urine Urobilinogen < 2.0 mg/dL (<2.0) 06/18/19 19:24 Ur Leukocyte Esterase Tr (Negative) 06/18/19 19:24 Urine WBC (Auto) 36.0 /HPF (0.0-6.0) H 06/18/19 19:24 Urine RBC (Auto) 3.0 /HPF (0.0-6.0) 06/18/19 19:24 U Epithel Cells (Auto) < 1.0 /HPF (0-13.0) 06/18/19 19:24 Urine Mucus Few /HPF 06/18/19 19:24 Active Medications - Current Medications Current Medications: Generic Name Dose Route Start Last Admin Trade Name Freq PRN Reason Stop Dose Admin Albuterol 2.5 mg 06/18/19 20:48 Proventil IH Q3HRT PRN Shortness Of Breath Carvedilol 3.125 mg 06/20/19 22:00 Coreg PO BID DARIAN Azithromycin 500 mg/ Sodium 250 mls @ 250 mls/hr 06/19/19 10:00 06/20/19 10:06 Chloride IV 250 mls/hr Q24HR DARIAN Administration Protocol Lisinopril 5 mg 06/21/19 10:00 Zestril PO QDAY DARIAN Ondansetron HCl 4 mg 06/18/19 20:48 Zofran IV Q6H PRN Nausea And Vomiting Potassium Chloride 20 meq 06/20/19 10:00 06/20/19 10:07 K-Dur PO Not Given QDAY DARIAN Sodium Chloride 10 ml 06/18/19 22:00 06/20/19 10:07 Sodium Chloride Flush Syringe 10 Ml IV 10 ml BID DARIAN Administration Sodium Chloride 10 ml 06/18/19 20:48 Sodium Chloride Flush Syringe 10 Ml IV PRN PRN LINE FLUSH Nutrition/Malnutrition Assess - Dietary Evaluation Nutrition/Malnutrition Findings: Nutrition Notes Start: 06/19/19 16:40 Freq: Status: Active Protocol: Document 06/19/19 16:40 RM (Rec: 06/19/19 16:43 RM [id number]) Nutrition Notes Need for Assessment 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 [place] [address] evaluated pt and recommended NPO with plans to follow. Pt confused at time of visit. Noted slight orbital and moderate clavicle wasting. Burn Absent Trauma Absent Minimum of two criteria Yes #2 Nutrition Diagnosis Malnutrition Etiology dementia, Hx CVA, Hx ovarian CA As Evidenced by Signs and Symptoms temporal wasting, clavicle wasting #1 Nutrition Diagnosis Predicted suboptimal energy intake Etiology dementia As Evidenced by Signs and Symptoms NPO status Is patient on ventilator? No Is Patient Ambulatory and/or Out of Bed No REE-([facility]. Jeme-confined to bed) 1361.184 Calculation Used for Recommendations [facility] Additional Notes Protein Needs: 66-79g (1-1.2g/ kg) Fluid Needs: 1 ml/kcal Nutrition Intervention Change Diet Order: Advance diet per ST Goal #[address] Anticipated Discharge Needs: Unable to determine at this time Follow-Up By: 06/22/19 Additional Comments Follow for diet advancement, PO and ONS intakes
[2019-06-20] MEDS: carvediloL 3.125 MG TAB PO SCH (22:03)
[2019-06-21 08:54] LABS: Calcium 9.2 mg/dL (8.4-10.2)
--- NOTE | 2019-06-21 10:39 | Consultation ---
History of Present Illness - Reason for Consult Consult date: 06/21/19 acute renal failure - History of Present Illness This is an 79-year-old female who is a current resident at [facility] with a past medical history significant for nonischemic cardiomyopathy, heart failure with reduced ejection fraction, permanent pacemaker, chronic atrial fibrillation, previous history of stroke and intracerebral hemorrhage, ovarian cancer, chronic kidney disease and hypertension who presented to the emergency department secondary to generalized weakness and shortness of breath. Echo done in May of this year showed an ejection fraction of 35-40%. It was felt the patient presented this hospitalization with an acute on chronic exacerbation of congestive heart failure. She was appropriately diabetes. During this time. Her creatinine did slowly start to rise for which nephrology was consulted at this time for evaluation of her acute kidney injury. Labs noted this morning indicating stable renal function overall. She has reached euvolemic status and as such her Lasix was discontinued by cardiology and primary attending. Past History Past Medical History: arthritis, cancer (ovarian), hypertension, hypothyroidism, stroke (sided residual weakness), other (LAMAR, debility) Past Surgical History: Other (EXCISION OF ANNA. BREAST CYSTS IN THE ) Social history: other (resident of [facility]) Family history: no significant family history Medications and Allergies Allergies Allergy/AdvReac Type Severity Reaction Status Date / Time amoxicillin [Amoxicillin] Allergy Rash Verified 11/22/15 06:47 Penicillins Allergy Rash Verified 11/22/15 06:47 Sulfa (Sulfonamide Allergy Rash Verified 11/22/15 06:35 Antibiotics) Home Medications Medication Instructions Recorded Confirmed Last Taken Type Levothyroxine [Synthroid] 100 mcg PO QAM 11/14/15 06/19/19 11/22/15 03:00 History Lisinopril [Zestril TAB] 40 mg PO BID 11/14/15 06/19/19 11/22/15 03:00 History Carvedilol [Coreg] 3.125 mg PO BID 01/31/18 06/19/19 Unknown History Donepezil HCl 5 mg PO DAILY 01/31/18 06/19/19 Unknown History ISOSORBIDE MONOnitrate [Imdur ER] 60 mg PO QDAY 01/31/18 06/19/19 Unknown History Niraparib Tosylate [Zejula] 100 mg PO DAILY 01/31/18 06/19/19 Unknown History Meclizine [Antivert] 25 mg PO TID PRN #20 tablet 02/10/18 06/19/19 Unknown Rx Acetaminophen [Tylenol Extra 500 mg PO QID PRN #15 tablet 02/12/18 06/19/19 Unknown Rx Strength] HYDROcodone/APAP 5-325 [[place] 1 each PO Q6HR PRN #14 tablet 10/02/18 06/19/19 Unknown Rx 5-325 mg TAB] DULoxetine [Cymbalta] 30 mg PO BID #60 capsule 05/25/19 06/19/19 Unknown Rx Mirtazapine [Remeron 30mg TAB] 30 mg PO QHS #30 05/25/19 06/19/19 Unknown Rx Ondansetron [Zofran ODT TAB] 4 mg PO Q8HR PRN #14 tab.rapdis 05/25/19 06/19/19 Unknown Rx Active Meds: Active Medications Albuterol (Proventil) 2.5 mg IH Q3HRT PRN PRN Reason: Shortness Of Breath Carvedilol (Coreg) 3.125 mg PO BID [facility] Last Admin: 06/20/19 22:03 Dose: 3.125 mg Documented by: Azithromycin 500 mg/ Sodium (Chloride) 250 mls @ 250 mls/hr IV Q24HR [facility]; Protocol Stop: 06/21/19 23:59 Last Admin: 06/20/19 10:06 Dose: 250 mls/hr Documented by: Lisinopril (Zestril) 5 mg PO QDAY [facility] Ondansetron HCl (Zofran) 4 mg IV Q6H PRN PRN Reason: Nausea And Vomiting Potassium Chloride (K-Dur) 20 meq PO QDAY [facility] Last Admin: 06/20/19 11:51 Dose: 20 meq Documented by: Sodium Chloride (Sodium Chloride Flush Syringe 10 Ml) 10 ml IV BID [facility] Last Admin: 06/20/19 22:04 Dose: 10 ml Documented by: Sodium Chloride (Sodium Chloride Flush Syringe 10 Ml) 10 ml IV PRN PRN PRN Reason: LINE FLUSH Review of Systems All systems: negative Constitutional: fatigue, weakness Exam - Vital Signs Vital signs: Vital Signs Pulse Resp Pulse Ox 97 H 12 95 06/18/19 17:56 06/18/19 17:56 06/18/19 17:56 - General Appearance General appearance: well-developed, well-nourished, appears stated age EENT: ATNC, PERRL Neck: Present: neck supple, trachea midline Respiratory: Decreased Breath Sounds Heart: regular, S1S2 Gastrointestinal: Present: normal, normoactive bowel sounds Integumentary: no rash, warm and dry Neurologic: no asterixis Musculoskeletal: Present: deferred Psychiatric: cooperative Results - Lab Results 06/19/19 05:44 06/21/19 07:27 Most recent lab results Calcium 9.2 mg/dL (8.4-10.2) 06/21/19 07:27 Assessment and Plan - Patient Problems (1) Acute kidney injury Current Visit: Yes Status: Acute Plan to address problem: Likely in the setting of acute cardiorenal syndrome. She is currently euvolemic at this time. Patient has been appropriately diuresed. Continue with current regimen. We'll obtain a renal ultrasound as well as urinalysis and urine electrolytes for further evaluation. Please avoid all nephrotoxins. Please maintain mean arterial pressure greater than 65 mmHg. We will monitor renal function daily. (2) Acute on chronic HFrEF (heart failure with reduced ejection fraction) Current Visit: Yes Status: Acute Plan to address problem: Patient currently euvolemic at this time. Lasix held at this time. Counseled patient about importance of fluid and salt restriction. We'll continue to monitor closely. Further recommendations per cardiology. (3) Hypertensive chronic kidney disease with stage 1 through stage 4 chronic kidney disease, or unspecified chronic kidney disease Current Visit: Yes Status: Chronic Plan to address problem: Continue on current antihypertensive regimen. Patient has been restarted on ELA inhibitor and beta cheryl therapy per cardiology recommendations. Overall renal function stable. We'll continue to monitor.
[2019-06-21] MEDS: carvediloL 3.125 MG TAB PO SCH ×2 (11:01→22:37)
[2019-06-21] MEDS: LISINOPRIL 5 MG TAB PO SCH (11:06)
[2019-06-21] MEDS: AZITHROMYCIN 500 MG in SODIUM CHLORIDE 0.9% 250ML 250 ML IV SCH (11:07)
[2019-06-21] MEDS: POTASSIUM CHLORIDE ER 20 MEQ TAB PO SCH (11:17)
--- NOTE | 2019-06-21 12:25 | Progress Note ---
Assessment and Plan Assessment and plan: 79-year-old female who is a current resident of [facility] with history of hypertension, CVA with left-sided residual weakness, ovarian cancer, LAMAR, and hypothyroidism who presents to [facility] ED via EMS with complaints of generalized weakness and SOB. Acute exacerbation of CHF, ef 35 southern heart input appreciated, received diuretics, now euvolemic, diuretics were discontinued due to acute kidney injury. Optimize medications per cardiology -Pacemaker in situ Acute kidney injury likely due to vasomotor nephropathy, Hold diuretics, nephrology consult Dysphasia Improved. Diet was resumed on 06/20 Urinary Tract Infection ruled out, ucx neg, dc abx HTN cont bp meds Hypokalemia k supplement as needed Hx Dementia w behavioral disturbance at baseline mentation -Continue all antipsychotic meds DVT PPX -On Lovenox History Interval history: Review of systems Constitutional: No fevers, no malaise, no joint pains CVS: No chest pain, complaining of orthopnea GI: No abdominal pain, no diarrhea, no vomiting, no constipation Respiratory: , no wheezing, no coughing Hospitalist Physical - Physical exam Narrative exam: General.: Appears well, no distress, nontoxic HEENT: Moist mucous membranes, extraocular muscles intact, no lymphadenopathy Neck: supple Cardiac: S1-S2 heard Lungs: Bibasilar crackles Abdomen: soft , nontender, nondistended, bowel sounds positive Extremities: no edema clubbing or cyanosis Skin: no rash or lesions Neurologic: no gross focal deficits, awake alert oriented x3. But poor judgment, and poor insight. When asked questions to answer sometimes are nonsensical. Which is apparently her baseline Psych: calm, and cooperative - Constitutional Vitals: Temp Pulse Resp BP Pulse Ox 99.4 F 72 17 138/76 95 06/21/19 08:27 06/21/19 11:06 06/21/19 08:27 06/21/19 11:06 06/21/19 04:38 General appearance: Present: no acute distress, other (confused) Results - Labs CBC & Chem 7: 06/19/19 05:44 06/21/19 07:27 Labs: Laboratory Last Values WBC 6.5 K/mm3 (4.5-11.0) 06/19/19 05:44 RBC 3.23 M/mm3 (3.65-5.03) L 06/19/19 05:44 Hgb 11.6 gm/dl (10.1-14.3) 06/19/19 05:44 Hct 34.0 % (30.3-42.9) 06/19/19 05:44 MCV 106 fl (79-97) H 06/19/19 05:44 MCH 36 pg (28-32) H 06/19/19 05:44 MCHC 34 % (30-34) 06/19/19 05:44 RDW 12.7 % (13.2-15.2) L 06/19/19 05:44 Plt Count 128 K/mm3 (140-440) L 06/19/19 05:44 Daniels % (Auto) Medical Housekeeper 06/19/19 05:44 Add Manual Diff Complete 06/19/19 05:44 Total Counted 100 06/19/19 05:44 Seg Neuts % (Manual) 83.0 % (40.0-70.0) H 06/19/19 05:44 Band Neutrophils % 0 % 06/19/19 05:44 Lymphocytes % (Manual) 9.0 % (13.4-35.0) L 06/19/19 05:44 Reactive Lymphs % (Man) 0 % 06/19/19 05:44 Monocytes % (Manual) 7.0 % (0.0-7.3) 06/19/19 05:44 Eosinophils % (Manual) 1.0 % (0.0-4.3) 06/19/19 05:44 Basophils % (Manual) 0 % (0.0-1.8) 06/19/19 05:44 Metamyelocytes % 0 % 06/19/19 05:44 Myelocytes % 0 % 06/19/19 05:44 Promyelocytes % 0 % 06/19/19 05:44 Blast Cells % 0 % 06/19/19 05:44 Nucleated RBC % Not Reportable 06/19/19 05:44 Seg Neutrophils # Man 5.4 K/mm3 (1.8-7.7) 06/19/19 05:44 Band Neutrophils # 0.0 K/mm3 06/19/19 05:44 Lymphocytes # (Manual) 0.6 K/mm3 (1.2-5.4) L 06/19/19 05:44 Abs React Lymphs (Man) 0.0 K/mm3 06/19/19 05:44 Monocytes # (Manual) 0.5 K/mm3 (0.0-0.8) 06/19/19 05:44 Eosinophils # (Manual) 0.1 K/mm3 (0.0-0.4) 06/19/19 05:44 Basophils # (Manual) 0.0 K/mm3 (0.0-0.1) 06/19/19 05:44 Metamyelocytes # 0.0 K/mm3 06/19/19 05:44 Myelocytes # 0.0 K/mm3 06/19/19 05:44 Promyelocytes # 0.0 K/mm3 06/19/19 05:44 Blast Cells # 0.0 K/mm3 06/19/19 05:44 WBC Morphology Not Reportable 06/19/19 05:44 Hypersegmented Neuts Not Reportable 06/19/19 05:44 Hyposegmented Neuts Not Reportable 06/19/19 05:44 Hypogranular Neuts Not Reportable 06/19/19 05:44 Smudge Cells Not Reportable 06/19/19 05:44 Toxic Granulation Not Reportable 06/19/19 05:44 Toxic Vacuolation Not Reportable 06/19/19 05:44 Dohle Bodies Not Reportable 06/19/19 05:44 Pelger-Huet Anomaly Not Reportable 06/19/19 05:44 Maranda Rods Not Reportable 06/19/19 05:44 Platelet Estimate Consistent w auto 06/19/19 05:44 Clumped Platelets Not Reportable 06/19/19 05:44 Plt Clumps, EDTA Not Reportable 06/19/19 05:44 Large Platelets Not Reportable 06/19/19 05:44 Giant Platelets Not Reportable 06/19/19 05:44 Platelet Satelliting Not Reportable 06/19/19 05:44 Plt Morphology Comment Not Reportable 06/19/19 05:44 RBC Morphology Not Reportable 06/19/19 05:44 Dimorphic RBCs Not Reportable 06/19/19 05:44 Polychromasia Not Reportable 06/19/19 05:44 Hypochromasia Not Reportable 06/19/19 05:44 Poikilocytosis Not Reportable 06/19/19 05:44 Anisocytosis Few 06/19/19 05:44 Microcytosis Not Reportable 06/19/19 05:44 Macrocytosis Not Reportable 06/19/19 05:44 Spherocytes Not Reportable 06/19/19 05:44 Pappenheimer Bodies Not Reportable 06/19/19 05:44 Sickle Cells Not Reportable 06/19/19 05:44 Target Cells Not Reportable 06/19/19 05:44 Tear Drop Cells Not Reportable 06/19/19 05:44 Ovalocytes Not Reportable 06/19/19 05:44 Helmet Cells Not Reportable 06/19/19 05:44 [place]-Antoine Bodies Not Reportable 06/19/19 05:44 [place] Rings Not Reportable 06/19/19 05:44 [place] Cells Not Reportable 06/19/19 05:44 Bite Cells Not Reportable 06/19/19 05:44 Crenated Cell Not Reportable 06/19/19 05:44 Elliptocytes Not Reportable 06/19/19 05:44 Acanthocytes (Spur) Not Reportable 06/19/19 05:44 Rouleaux Not Reportable 06/19/19 05:44 Hemoglobin C Crystals Not Reportable 06/19/19 05:44 Schistocytes Not Reportable 06/19/19 05:44 Malaria parasites Not Reportable 06/19/19 05:44 Harsha Bodies Not Reportable 06/19/19 05:44 Hem Pathologist Commnt No 06/19/19 05:44 PT 13.0 Sec. (12.2-14.9) 06/18/19 19:24 INR 0.99 (0.87-1.13) 06/18/19 19:24 APTT 34.1 Sec. (24.2-36.6) 06/18/19 19:24 Sodium 143 mmol/L (137-145) 06/21/19 07:27 Potassium 4.4 mmol/L (3.6-5.0) 06/21/19 07:27 Chloride 104.3 mmol/L (98-107) 06/21/19 07:27 Carbon Dioxide 24 mmol/L (22-30) 06/21/19 07:27 Anion Gap 19 mmol/L 06/21/19 07:27 BUN 34 mg/dL (7-17) H 06/21/19 07:27 Creatinine 1.5 mg/dL (0.7-1.2) H 06/21/19 07:27 Estimated GFR 33 ml/min 06/21/19 07:27 BUN/Creatinine Ratio 23 % 06/21/19 07:27 Glucose 84 mg/dL (65-100) 06/21/19 07:27 Lactic Acid 1.90 mmol/L (0.7-2.0) 06/18/19 19:47 Calcium 9.2 mg/dL (8.4-10.2) 06/21/19 07:27 Total Bilirubin 0.30 mg/dL (0.1-1.2) 06/18/19 18:50 AST 22 units/L (5-40) 06/18/19 18:50 ALT 8 units/L (7-56) 06/18/19 18:50 Alkaline Phosphatase 79 units/L (35-129) 06/18/19 18:50 Troponin T 0.020 ng/mL (0.00-0.029) 06/18/19 18:50 NT-Pro-B Natriuret Pep 2866 pg/mL (0-900) H 06/18/19 18:50 Total Protein 6.8 g/dL (6.3-8.2) 06/18/19 18:50 Albumin 3.8 g/dL (3.9-5) L 06/18/19 18:50 Albumin/Globulin Ratio 1.3 % 06/18/19 18:50 Urine Color Yellow (Yellow) 06/18/19 19:24 Urine Turbidity Slightly-cloudy (Clear) 06/18/19 19:24 Urine pH 5.0 (5.0-7.0) 06/18/19 19:24 Ur Specific [place] 1.020 (1.003-1.030) 06/18/19 19:24 Urine Protein 30 mg/dl mg/dL (Negative) 06/18/19 19:24 Urine Glucose (UA) Neg mg/dL (Negative) 06/18/19 19:24 Urine Ketones Neg mg/dL (Negative) 06/18/19 19:24 Urine Blood Sm (Negative) 06/18/19 19:24 Urine Nitrite Neg (Negative) 06/18/19 19:24 Urine Bilirubin Neg (Negative) 06/18/19 19:24 Urine Urobilinogen < 2.0 mg/dL (<2.0) 06/18/19 19:24 Ur Leukocyte Esterase Tr (Negative) 06/18/19 19:24 Urine WBC (Auto) 36.0 /HPF (0.0-6.0) H 06/18/19 19:24 Urine RBC (Auto) 3.0 /HPF (0.0-6.0) 06/18/19 19:24 U Epithel Cells (Auto) < 1.0 /HPF (0-13.0) 06/18/19 19:24 Urine Mucus Few /HPF 06/18/19 19:24 Active Medications - Current Medications Current Medications: Generic Name Dose Route Start Last Admin Trade Name Freq PRN Reason Stop Dose Admin Albuterol 2.5 mg 06/18/19 20:48 Proventil IH Q3HRT PRN Shortness Of Breath Carvedilol 3.125 mg 06/20/19 22:00 06/21/19 11:01 Coreg PO 3.125 mg BID DARIAN Administration Azithromycin 500 mg/ Sodium 250 mls @ 250 mls/hr 06/19/19 10:00 06/21/19 11:07 Chloride IV 06/21/19 23:59 250 mls/hr Q24HR DARIAN Administration Protocol Lisinopril 5 mg 06/21/19 10:00 06/21/19 11:06 Zestril PO 5 mg QDAY DARIAN Administration Ondansetron HCl 4 mg 06/18/19 20:48 Zofran IV Q6H PRN Nausea And Vomiting Potassium Chloride 20 meq 06/20/19 10:00 06/21/19 11:17 K-Dur PO 20 meq QDAY DARIAN Administration Sodium Chloride 10 ml 06/18/19 22:00 06/21/19 11:07 Sodium Chloride Flush Syringe 10 Ml IV 10 ml BID DARIAN Administration Sodium Chloride 10 ml 06/18/19 20:48 Sodium Chloride Flush Syringe 10 Ml IV PRN PRN LINE FLUSH Nutrition/Malnutrition Assess - Dietary Evaluation Nutrition/Malnutrition Findings: Nutrition Notes Start: 06/19/19 16:40 Freq: Status: Active Protocol: Document 06/19/19 16:40 RM (Rec: 06/19/19 16:43 RM [id number]) Nutrition Notes Need for Assessment 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 [place] [address] evaluated pt and recommended NPO with plans to follow. Pt confused at time of visit. Noted slight orbital and moderate clavicle wasting. Burn Absent Trauma Absent Minimum of two criteria Yes #2 Nutrition Diagnosis Malnutrition Etiology dementia, Hx CVA, Hx ovarian CA As Evidenced by Signs and Symptoms temporal wasting, clavicle wasting #1 Nutrition Diagnosis Predicted suboptimal energy intake Etiology dementia As Evidenced by Signs and Symptoms NPO status Is patient on ventilator? No Is Patient Ambulatory and/or Out of Bed No REE-([facility] Alejandra-confined to bed) 1361.184 Calculation Used for Recommendations [facility] Additional Notes Protein Needs: 66-79g (1-1.2g/ kg) Fluid Needs: 1 ml/kcal Nutrition Intervention Change Diet Order: Advance diet per ST Goal #[address] Anticipated Discharge Needs: Unable to determine at this time Follow-Up By: 06/22/19 Additional Comments Follow for diet advancement, PO and ONS intakes
--- NOTE | 2019-06-21 12:58 | Progress Note ---
Assessment and Plan Currently stable cardiac status. Lasix d/c'd in setting of LAMAR. Cont present cardiac management. Nothing further to add from cardiac perspective at this time. Will sign off. Recommend follow up in our office with Dr. Bates within 3-5 days of discharge ([phone]). The patient has been seen in conjunction with Dr. Toussaint who agrees with the assessment and plan of care. - Patient Problems (1) Acute HFrEF (heart failure with reduced ejection fraction) Current Visit: Yes Status: Acute (2) Nonischemic cardiomyopathy Current Visit: Yes Status: Chronic (3) Altered mental status Current Visit: Yes Status: Acute Qualifiers: Altered mental status type: unspecified Qualified Code(s): R41.82 - Altered mental status, unspecified (4) Psychiatric disorder Current Visit: Yes Status: Chronic (5) Atrial fibrillation and flutter Current Visit: Yes Status: Chronic (6) Cardiac pacemaker in situ Current Visit: Yes Status: Chronic (7) History of CVA (cerebrovascular accident) Current Visit: Yes Status: Chronic (8) History of intracranial hemorrhage Current Visit: Yes Status: Chronic (9) CKD (chronic kidney disease) Current Visit: Yes Status: Chronic (10) Hypothyroidism (acquired) Current Visit: Yes Status: Chronic (11) History of ovarian cancer Current Visit: Yes Status: Chronic (12) Thrombocytopenia Current Visit: Yes Status: Acute Subjective Date of service: 06/21/19 Principal diagnosis: AMS Interval history: pt resting in bed, no apparent distress, remains confused with tangential speech. paced on telemetry. Objective Last Vital Signs Temp 99.4 F 06/21/19 08:27 Pulse 72 06/21/19 11:06 Resp 17 06/21/19 08:27 BP 138/76 06/21/19 11:06 Pulse Ox 100 06/21/19 12:44 - Physical Examination General: No Apparent Distress, Other (confused) HEENT: Positive: PERRL, Normocephaly, Mucus Membranes Moist Neck: Positive: neck supple, trachea midline Cardiac: Positive: Reg Rate and Rhythm, S1/S2 Lungs: Positive: Decreased Breath Sounds Neuro: Positive: Grossly Intact Abdomen: Negative: Tender Skin: Negative: Rash Musculoskeletal: No Pain Extremities: Absent: edema - Labs and Meds Comprehensive Metabolic Panel 06/21/19 Range/Units 07:27 Sodium 143 (137-145) mmol/L Potassium 4.4 (3.6-5.0) mmol/L Chloride 104.3 (98-107) mmol/L Carbon Dioxide 24 (22-30) mmol/L BUN 34 H (7-17) mg/dL Creatinine 1.5 H (0.7-1.2) mg/dL Glucose 84 (65-100) mg/dL Calcium 9.2 (8.4-10.2) mg/dL - Imaging and Cardiology EKG: report reviewed, image reviewed Echo: report reviewed (05/2019 showed EF 35-40%, mod LVH, impaired relaxation, LA mildly dilated, trivial pericardial effusion, pacemaker wire in RA and RV, mild to mod MR, mild to mod TR, RVSP 26mmHg. ) Cardiac cath: report reviewed (03/2011 showed mild luminal irregularities in OM- 1, other franco normal coronaries, EF 50%. ) Pacemaker: ventricular pacing w/capt
[2019-06-21] MEDS ORDERED: ACETAMINOPHEN 325 MG TAB PO PRN (14:24)
[2019-06-22 07:03] LABS: Calcium 9.1 mg/dL (8.4-10.2)
[2019-06-22] MEDS: LISINOPRIL 5 MG TAB PO SCH (09:32)
[2019-06-22] MEDS: POTASSIUM CHLORIDE ER 20 MEQ TAB PO SCH (09:32)
[2019-06-22] MEDS: carvediloL 3.125 MG TAB PO SCH (09:32)
--- NOTE | 2019-06-22 10:55 | Discharge Summary ---
Providers - Providers Date of Admission: 06/18/19 20:48 Attending physician: BETTINA ADAMS MD 06/18/19 20:48 Consult to Physician [CONS] Routine Comment: Consulting Provider: OBEY SHANKS Physician Instructions: Reason For Exam: AE CHF, est pt 06/18/19 23:13 Speech Therapy Evaluation and Treat [CONS] Routine Reason For Exam: ?? Dysphagia 06/19/19 23:19 Physical Therapy Evaluation and Treat [CONS] Routine Comment: Reason For Exam: debility 06/20/19 11:36 Consult to Physician [CONS] Routine Comment: Consulting Provider: HERMINIA CARROLL Physician Instructions: Reason For Exam: lamar Primary care physician: LOCK TENDER Hospitalization Condition: Stable Hospital course: 79-year-old female who is a current resident of [facility] with history of hypertension, CVA with left-sided residual weakness, ovarian cancer, LAMAR, and hypothyroidism who presents to [facility] ED via EMS with complaints of generalized weakness and SOB. Acute exacerbation of CHF, ef 35 southern heart input appreciated, received diuretics, now euvolemic, diuretics were discontinued due to acute kidney injury. Optimize medications per cardiology -Pacemaker in situ Acute kidney injury likely due to vasomotor nephropathy, Hold diuretics, nephrology consult appreciated Dysphasia Improved. Diet was resumed on 06/20 Urinary Tract Infection ruled out, ucx neg, dc abx HTN cont bp meds Hypokalemia k supplement as needed Hx Dementia w behavioral disturbance at baseline mentation -Continue all antipsychotic meds DVT PPX -On Lovenox Disposition: DC-50 TO HOSPICE (HOME) Time spent for discharge: 33 mins Core Measure Documentation - Palliative Care Palliative Care/ Comfort Measures: Not Applicable - Core Measures Any of the following diagnoses?: heart failure - Heart Failure Discharge Requirements ELA/ARB for LVSD if EF <40%: Yes Beta cheryl at discharge: Yes Exam - Physical Exam Narrative exam: General.: Appears well, no distress, nontoxic HEENT: Moist mucous membranes, extraocular muscles intact, no lymphadenopathy Neck: supple Cardiac: S1-S2 heard Lungs: lungs clear Abdomen: soft , nontender, nondistended, bowel sounds positive Extremities: no edema clubbing or cyanosis Skin: no rash or lesions Neurologic: no gross focal deficits, awake alert oriented x3. But poor judgment, and poor insight. When asked questions to answer sometimes are nonsensical. Which is apparently her baseline Psych: calm, and cooperative - Constitutional Vitals: Temp Pulse Resp BP Pulse Ox 97.7 F 79 16 136/67 97 06/22/19 08:01 06/22/19 09:32 06/22/19 08:01 06/22/19 09:32 06/22/19 08:01 Plan Follow up with: PRIMARY CARE, [Primary Care Provider] - 3-5 Days Prescriptions: Lisinopril [Zestril TAB] 5 mg PO QDAY #30 tablet
--- NOTE | 2019-06-22 13:59 | Progress Note ---
Assessment and Plan - Patient Problems (1) Acute kidney injury Current Visit: Yes Status: Acute Plan to address problem: Likely in the setting of acute cardiorenal syndrome. She is currently euvolemic at this time. Patient has been appropriately diuresed. Continue with current regimen. From nephrology standpoint patient is stable for discharge at this time, with instructions to follow up with the nephrology clinic in 4 weeks. (2) Acute on chronic HFrEF (heart failure with reduced ejection fraction) Current Visit: Yes Status: Acute Plan to address problem: Patient currently euvolemic at this time. Lasix held at this time. Counseled patient about importance of fluid and salt restriction. We'll continue to monitor closely. Further recommendations per cardiology. (3) Hypertensive chronic kidney disease with stage 1 through stage 4 chronic kidney disease, or unspecified chronic kidney disease Current Visit: Yes Status: Chronic Plan to address problem: Continue on current antihypertensive regimen. Patient has been restarted on ELA inhibitor and beta cheryl therapy per cardiology recommendations. Overall renal function stable. We'll continue to monitor. Subjective Date of service: 06/22/19 Principal diagnosis: AMS Interval history: No acute changes overnight. Objective - Vital Signs Vital signs: Vital Signs - 12hr 06/22/19 06/22/19 06/22/19 04:03 06:43 08:01 Temperature 98.0 F 97.7 F Pulse Rate 78 78 79 Respiratory 18 16 Rate Blood Pressure 127/72 136/67 O2 Sat by Pulse 92 97 Oximetry 06/22/19 06/22/19 06/22/19 08:52 09:32 11:36 Temperature 97.8 F Pulse Rate 78 79 76 Respiratory 16 Rate Blood Pressure 136/67 126/72 O2 Sat by Pulse 96 Oximetry - General Appearance General appearance: well-developed, well-nourished, appears stated age EENT: ATNC, PERRL Neck: no JVD, no thyromegaly Respiratory: Present: Clear to Ascultation, Normal Exam Cardiology: regular, S1S2 Gastrointestinal: normal, normoactive bowel sounds Integumentary: no rash, warm and dry Neurologic: no asterixis Psychiatric: mood/affect appropriate, cooperative - Lab 06/19/19 05:44 06/22/19 06:10 Most recent lab results Calcium 9.1 mg/dL (8.4-10.2) 06/22/19 06:10 - Allied health notes Allied health notes reviewed: nursing Medications & Allergies - Medications Allergies/Adverse Reactions: Allergies amoxicillin [Amoxicillin] Allergy (Verified 11/22/15 06:47) Rash Penicillins Allergy (Verified 11/22/15 06:47) Rash Sulfa (Sulfonamide Antibiotics) Allergy (Verified 11/22/15 06:35) Rash Home Medications: Home Medications Medication Instructions Recorded Confirmed Last Taken Type Levothyroxine [Synthroid] 100 mcg PO QAM 11/14/15 06/19/19 11/22/15 03:00 History Carvedilol [Coreg] 3.125 mg PO BID 01/31/18 06/19/19 Unknown History Donepezil HCl 5 mg PO DAILY 01/31/18 06/19/19 Unknown History ISOSORBIDE MONOnitrate [Imdur ER] 60 mg PO QDAY 01/31/18 06/19/19 Unknown History Niraparib Tosylate [Zejula] 100 mg PO DAILY 01/31/18 06/19/19 Unknown History Meclizine [Antivert] 25 mg PO TID PRN #20 tablet 02/10/18 06/19/19 Unknown Rx Acetaminophen [Tylenol Extra 500 mg PO QID PRN #15 tablet 02/12/18 06/19/19 Unknown Rx Strength] HYDROcodone/APAP 5-325 [[place] 1 each PO Q6HR PRN #14 tablet 10/02/18 06/19/19 Unknown Rx 5-325 mg TAB] DULoxetine [Cymbalta] 30 mg PO BID #60 capsule 05/25/19 06/19/19 Unknown Rx Mirtazapine [Remeron 30mg TAB] 30 mg PO QHS #30 05/25/19 06/19/19 Unknown Rx Ondansetron [Zofran ODT TAB] 4 mg PO Q8HR PRN #14 tab.rapdis 05/25/19 06/19/19 Unknown Rx Lisinopril [Zestril TAB] 5 mg PO QDAY #30 tablet 06/22/19 Unknown Rx Active Medications: Generic Name Dose Route Start Last Admin Trade Name Freq PRN Reason Stop Dose Admin Acetaminophen 650 mg 06/21/19 14:24 06/21/19 15:34 Tylenol PO 650 mg Q6H PRN Administration Pain, Mild (1-3) Albuterol 2.5 mg 06/18/19 20:48 Proventil IH Q3HRT PRN Shortness Of Breath Carvedilol 3.125 mg 06/20/19 22:00 06/22/19 09:32 Coreg PO 3.125 mg BID DARIAN Administration Lisinopril 5 mg 06/21/19 10:00 06/22/19 09:32 Zestril PO 5 mg QDAY DARIAN Administration Ondansetron HCl 4 mg 06/18/19 20:48 Zofran IV Q6H PRN Nausea And Vomiting Potassium Chloride 20 meq 06/20/19 10:00 06/22/19 09:32 K-Dur PO 20 meq QDAY DARIAN Administration Sodium Chloride 10 ml 06/18/19 22:00 06/22/19 09:31 Sodium Chloride Flush Syringe 10 Ml IV 10 ml BID DARIAN Administration Sodium Chloride 10 ml 06/18/19 20:48 Sodium Chloride Flush Syringe 10 Ml IV PRN PRN LINE FLUSH
[2019-06-22 15:57] VITALS: BP 123/74
== END 2019-06-22 17:10 | disposition hospice, home (50) | DRG 291 ==
LOC: ED 16:41 → 4A 20:48
PROVIDERS: ADMIT Internal Medicine; ATTEND Internal Medicine
DX: I13.0 Hypertensive heart and chronic kidney disease with heart failure and stage 1 through stage 4 chronic kidney disease, or unspecified chronic kidney disease (principal); N17.0 Acute kidney failure with tubular necrosis; I50.23 Acute on chronic systolic (congestive) heart failure; I69.354 Hemiplegia and hemiparesis following cerebral infarction affecting left non-dominant side; I48.20 Chronic atrial fibrillation, unspecified; I42.9 Cardiomyopathy, unspecified; E87.6 Hypokalemia; D69.6 Thrombocytopenia, unspecified; E03.9 Hypothyroidism, unspecified; G43.909 Migraine, unspecified, not intractable, without status migrainosus; Z51.5 Encounter for palliative care; N18.9 Chronic kidney disease, unspecified; F03.90 Unspecified dementia, unspecified severity, without behavioral disturbance, psychotic disturbance, mood disturbance, and anxiety; Z95.0 Presence of cardiac pacemaker; Z79.899 Other long term (current) drug therapy; Z88.2 Allergy status to sulfonamides; Z88.0 Allergy status to penicillin; Z88.1 Allergy status to other antibiotic agents; Z90.710 Acquired absence of both cervix and uterus
CPT/HCPCS: 36415; 71045; 80048; 80053; 81001; 82140; 83880; 84484; 85007; 85025; 85027; 85610; 85730; 87040; 87086; 87116; 93005; 93010; 93970; 94760; 96374; G0378; J0456; J0696; J1940; J7050